=== PATIENT | female | born 1935 ===

== ENCOUNTER 2017-12-02 16:14 | Inpatient (IN) | payer MEDICARE, MEDICAID ==
[2017-12-02] MEDS ORDERED: Morphine 4 MG/ML VIAL ONE (16:33)
[2017-12-02 16:34] VITALS: BMI 678.0
[2017-12-02] MEDS ORDERED: Heparin25000 units/250ml 1/2NS 25,000 UNITS/250 ML BAG IV ONE ×2 (16:41→16:45)
[2017-12-02] MEDS ORDERED: Iodixanol 320 mg/ml 150 ml Bottle IV ONE (16:51)
--- NOTE | 2017-12-02 17:10 | C.PDOC ---
History Of Present Illness Patient is an 82 y/o female with a past medical history of hypertension, AAA, and hypothyroidism, who presents to the ER complaining of sudden lower left leg pain. States she was walking to bathroom and suddenly felt the leg pain. Patient had no trauma to the area. No chest pain or shortness of breath. She has some history of claudication and had vascular studies done in the past many years ago, which were normal. Denies fever, chest pain, sob, n/v, or trauma. Pt was seen immediately upon arrival. Time Seen by Provider: 12/02/17 16:31 Chief Complaint (Nursing): Lower Extremity Problem/Injury History Per: Patient History/Exam Limitations: no limitations Onset/Duration Of Symptoms: Mins Current Symptoms Are (Timing): Still Present Past Medical History Reviewed: Historical Data, Nursing Documentation, Vital Signs Vital Signs: Last Vital Signs Temp 99.6 F 12/05/17 20:00 Pulse 87 12/06/17 01:00 Resp 15 12/05/17 03:26 BP 129/51 L 12/05/17 03:26 Pulse Ox 97 12/05/17 20:00 - Medical History PMH: Anxiety, Gastritis, HTN, Hypothyroidism Family History: States: No Known Family Hx - Social History Hx Tobacco Use: No Hx Alcohol Use: No Hx Substance Use: No - Immunization History Hx Tetanus Toxoid Vaccination: No Hx Influenza Vaccination: No Hx Pneumococcal Vaccination: No Review Of Systems Cardiovascular: Negative for: Chest Pain Respiratory: Negative for: Shortness of Breath Musculoskeletal: Positive for: Leg Pain (left) Physical Exam - Physical Exam Appears: In Acute Distress (acute painful distress) Skin: Dry, Cyanotic (at left lower extremity, + cool to touch) Head: Atraumatic, Normacephalic Eye(s): bilateral: Normal Inspection, EOMI Nose: Normal Oral Mucosa: Moist Neck: Normal ROM, Supple Chest: Symmetrical Cardiovascular: Rhythm Regular Respiratory: Normal Breath Sounds, No Accessory Muscle Use Gastrointestinal/Abdominal: Normal Exam, Soft, No Tenderness Back: Normal Inspection, No CVA Tenderness, No Vertebral Tenderness Extremity: Tenderness, Other (Right lower extremity is warm, good pulses, sensation intact) Pulses: Left Dorsalis Pedis: Absent (No pulses), Right Dorsalis Pedis: Normal Neurological/Psych: Oriented x3, Normal Speech ED Course And Treatment - Laboratory Results Result Diagrams: 12/05/17 06:46 02/14/18 06:46 O2 Sat by Pulse Oximetry: 99 (RA) Pulse Ox Interpretation: Normal - CT Scan/US CTA Abd Other Rad Studies (CT/US): Read By Radiologist, Radiology Report Reviewed CT/US Interpretation: FINDINGS: Lower thorax: No acute findings. VASCULATURE: Aorta: There is an infrarenal abdominal aortic aneurysm measuring up to 6.7 cm diameter. No. evidence of acute dissection. Celiac trunk and mesenteric arteries: No acute findings. No occlusion or significant stenosis. Renal arteries: No acute findings. No occlusion or significant stenosis. Right iliac arteries: No acute findings. No occlusion or significant stenosis. Right femoral/popliteal arteries: Multifocal moderate to severe stenosis in the mid and distal right. SFA. No occlusion . Right calf/foot arteries: There is intermittent enhancement in the right anterior tibial artery. No. occlusion or significant stenosis. Left iliac arteries: No acute findings. No occlusion or significant stenosis. Left femoral/popliteal arteries: The left SFA is occluded in the proximal to mid thigh, with. reconstitution in the distal SFA, just above the knee joint. There is multifocal stenosis in the distal. SFA and left popliteal artery and poor enhancement on all of the left calf vessels. Left calf/foot arteries: As above. ABDOMEN: Liver: Unremarkable. No mass. Gallbladder and bile ducts: At least one small stone noted in the gallbladder. No ductal dilation. Pancreas: Unremarkable. No ductal dilation. No mass. Spleen: Unremarkable. No splenomegaly. Adrenals: Unremarkable. No mass. Kidneys and ureters: There is a simple cyst in the left kidney. No hydronephrosis. Stomach and bowel: There is diverticular disease of the colon, without evidence of acute. diverticulitis. No perforation, or abscess. No signs or history of bleeding provided. No obstruction. Appendix: No findings to suggest acute appendicitis. PELVIS: Bladder: Unremarkable. No mass. Reproductive: Unremarkable as visualized. ABDOMEN, PELVIS and LOWER EXTREMITIES : Intraperitoneal space: Unremarkable. No significant fluid collection. No free air. Bones/joints: There is grade 1 anterolisthesis at L5-S1 on the basis of advanced facet arthropathy. Bilateral moderate knee joint effusions and advanced DJD of both knee joints. No acute fracture. No dislocation. Soft tissues: Unremarkable. Lymph nodes: Unremarkable. No enlarged lymph nodes. Other findings: There are small bilateral Bennett's cysts. IMPRESSION: Infrarenal abdominal aortic aneurysm measuring 6.7 cm. Occlusion of the proximal left superficial femoral artery with reconstitution in the distal SFA above the. knee joint. Multifocal stenosis in the distal left SFA and popliteal artery with poor enhancement in the left calf. vessels. Multifocal stenosis in the mid and distal right SFA with poor enhancement or occlusion of the anterior. tibial artery. Progress Note: 4:15 Patient seen immediately upon arrival. Case discussed and pt evaluated by Dr Green. 4:20 Dr. Green discussed case with Dr. Buckner, vascular surgeon, who agreed with obtaining CTA and starting Heparin drip. 5: 50 Dr. Buckner evaluated patient in the ED, and will take her to the OR for arterial occlusion - Physician Consult Information Time Consulting Physician Contacted: 16:20 Physician Contacted: Juancarlos Buckner Jr. Critical Care Time - Critical Care Note Total Time (in mins): 45 Documented critical care: time excludes all time spent performing seperately billable procedures. Disposition - Disposition Disposition: HOSPITALIZED Disposition Time: 19:00 Condition: SERIOUS - Clinical Impression Clinical Impression: Arterial occlusion, lower extremity - PA / NUCLEAR CHEMISTRY TECHNICIAN / Resident Statement MD/DO has reviewed & agrees with the documentation as recorded. - Scribe Statement The provider has reviewed the documentation as recorded by the Scribe (Parul Oconnor) All medical record entries made by the Scribe were at my direction and personally dictated by me. I have reviewed the chart and agree that the record accurately reflects my personal performance of the history, physical exam, medical decision making, and the department course for this patient. I have also personally directed, reviewed, and agree with the discharge instructions and disposition.
[2017-12-02 17:34] LABS: BASO # 0.1 K/uL (0.0-0.2); BASO % 0.7 % (0.0-2.0); EOS # 0.5 K/uL (0.0-0.7); HEMOGLOBIN 10.1 g/dL (11.0-16.0); LYMPH # 1.5 K/uL (1.0-4.3); LYMPH % 19.8 % (20.0-40.0); MEAN CELL VOLUME 76.2 fL (81.0-99.0); MEAN CORPUSCULAR HEMOGLOBIN 24.8 pg (27.0-31.0); MEAN CORPUSCULAR HGB CONC 32.5 g/dL (33.0-37.0); MEAN PLATELET VOLUME 7.9 fL (7.2-11.7); MONO # 0.6 K/uL (0.0-0.8); MONO % 7.2 % (0.0-10.0); NEUT # 5.2 K/uL (1.8-7.0); NEUT % 66.3 % (50.0-75.0); RBC 4.07 Mil/uL (3.80-5.20); WHITE BLOOD COUNT 7.8 K/uL (4.8-10.8)
[2017-12-02 17:45] LABS: PROTHROMBIN TIME 11.4 SECONDS (9.7-12.2)
[2017-12-02 17:47] LABS: ALB/GLOB RATIO 1.1 (1.0-2.1); ALBUMIN 4.1 g/dL (3.5-5.0); CALCIUM 8.7 mg/dl (8.6-10.4)
[2017-12-02] MEDS ORDERED: Lactated Ringer's 1,000 ML ONE (18:10)
[2017-12-02] MEDS: Lactated Ringer's 1,000 ML IV SCH (18:12)
--- NOTE | 2017-12-02 18:12 | CP.PCM.CON ---
History of Present Illness - History of Present Illness History of Present Illness: Vascular Surgery consult note- Dr. Buckner CC: LLE pain 82F w/ relevant pmhx of HTN, hypothyroidism, AAA, PVD, presents to [facility] ER w/ sharp left lower leg pain that started suddenly earlier today. Patient was walking in bathroom when pain started. Denies trauma or fall onto the leg. Patient states never had this pain before. Denies: fevers, chills, chest pain, shortness of breath, nausea, vomiting, diarrhea, change in vision, loss of consciousness. PMH: AAA, HTN, hypothyroidism PSH: ALL: PCN SocialHx: PMD: Dr. Díaz Review of Systems - Review of Systems All systems: reviewed and no additional remarkable complaints except - Constitutional Constitutional: As Per HPI Past Patient History - Past Social History Smoking Status: Never Smoked - CARDIAC Hx Hypertension: Yes - ENDOCRINE/METABOLIC Hx Hypothyroidism: Yes - GASTROINTESTINAL Hx Gastritis: Yes - PSYCHIATRIC Hx Anxiety: Yes Hx Substance Use: No Meds Allergies/Adverse Reactions: Allergies Allergy/AdvReac Type Severity Reaction Status Date / Time Penicillins Allergy COUGH Verified 12/02/17 16:36 - Medications Medications: Current Medications Heparin Sodium/Sodium Chloride (Heparin 83650 Units/250ml 1/2 Normal Saline) 25 ,000 units in 250 mls @ 11.34 mls/hr IV .Q22H3M ONE; 18 UNITS/KG/HR PRN Reason: Protocol Stop: 12/03/17 14:47 Last Admin: 12/02/17 16:55 Dose: 11.34 mls/hr Lactated Ringer's (Lactated Ringer's) 1,000 mls @ 100 mls/hr IV .Q10H YARITZA Clindamycin Phosphate 300 mg/ (Sodium Chloride) 52 mls @ 104 mls/hr IVPB Q6H YARITZA Morphine Sulfate (Morphine) 2 mg IVP Q4 PRN PRN Reason: Pain, moderate (4-7) Physical Exam - Constitutional Appears: No Acute Distress, Agitated - Head Exam Head Exam: ATRAUMATIC - Eye Exam Eye Exam: EOMI. absent: Scleral icterus - ENT Exam ENT Exam: Mucous Membranes Moist - Respiratory Exam Respiratory Exam: NORMAL BREATHING PATTERN. absent: Accessory Muscle Use, Respiratory Distress - Cardiovascular Exam Cardiovascular Exam: Tachycardia, +S1, +S2. absent: Bradycardia - GI/Abdominal Exam GI & Abdominal Exam: Soft. absent: Hernia, Rebound, Rigid, Tenderness - Extremities Exam Additional comments: Palpable Femoral pulses non-palpable Left popliteal, DP and PT Left leg cool to touch - Neurological Exam Neurological exam: Alert, Oriented x3 - Skin Skin Exam: Intact, Warm Results - Vital Signs Recent Vital Signs: Last Vital Signs Temp 98 F 12/02/17 16:33 Pulse 121 H 12/02/17 16:33 Resp 25 H 12/02/17 16:33 BP 147/73 12/02/17 16:33 Pulse Ox 99 12/02/17 17:54 - Labs Result Diagrams: 12/02/17 17:29 12/02/17 17:29 Labs: Laboratory Results - last 24 hr 12/02/17 12/02/17 12/02/17 17:29 17:29 17:29 WBC 7.8 RBC 4.07 Hgb 10.1 L Hct 31.0 L MCV 76.2 L MCH 24.8 L MCHC 32.5 L RDW 16.0 H Plt Count 273 MPV 7.9 Neut % (Auto) 66.3 Lymph % (Auto) 19.8 L Citrus % (Auto) 7.2 Eos % (Auto) 6.0 H Baso % (Auto) 0.7 Neut # (Auto) 5.2 Lymph # (Auto) 1.5 Citrus # (Auto) 0.6 Eos # (Auto) 0.5 Baso # (Auto) 0.1 PT 11.4 INR 1.0 APTT 28 Sodium 134 Potassium 3.2 L Chloride 99 Carbon Dioxide 20 L Anion Gap 18 BUN 27 H Creatinine 1.1 Est GFR ( Amer) 57 Est GFR (Non-Af Amer) 47 Random Glucose 160 H Calcium 8.7 Total Bilirubin 0.7 AST 25 ALT 19 Alkaline Phosphatase 108 Total Protein 7.9 Albumin 4.1 Globulin 3.8 Albumin/Globulin Ratio 1.1 Assessment & Plan - Assessment and Plan (Free Text) Assessment: 82F acute thrombosis in Left profund femoral artery Plan: - NPO - ABx- Clinda preop - Plan for OR today for Embolectomy - pain control PRN - IVF - discussed w/ Dr. Dudley Nogueira PGY1
[2017-12-02] MEDS: Clindamycin 300 MG in Sodium Chloride 0.9% 50 ML IVPB SCH (18:44)
[2017-12-02] MEDS ORDERED: HEPARIN-NS 5,000 UNITS/500 ML 5,000 UNIT/500 ML BAG IV ONE (19:53)
[2017-12-02] MEDS ORDERED: Iodixanol 320 MG/ML 200 ML BOTTLE IV ONE (19:53)
[2017-12-02 19:56] LABS: SQUAMOUS EPITHIAL < 1 /hpf (0-5); URINE BILIRUBIN NEGATIVE (NEGATIVE); URINE BLOOD 1+ (NEGATIVE); URINE CLARITY Clear (Clear); URINE COLOR Straw (YELLOW); URINE GLUCOSE (UA) NORMAL (Normal); URINE LEUKOCYTE ESTERASE TRACE Leu/uL (Negative); URINE NITRATE NEGATIVE (NEGATIVE); URINE PROTEIN NEGATIVE (NEGATIVE); URINE UROBILINOGEN NORMAL mg/dL (0.2-1.0)
[2017-12-02] MEDS ORDERED: Midazolam 2 MG/2 ML VIAL ONE (19:56)
[2017-12-02] MEDS ORDERED: Propofol 10 mg/ml Inj (20 ML) ONE (19:56)
[2017-12-02] MEDS ORDERED: Rocuronium 10 mg/ml (10 ml) ONE (20:10)
[2017-12-02] MEDS ORDERED: HYDROmorphone 0.5 mg/0.5 ml ISec IVP PRN (20:26)
--- NOTE | 2017-12-02 23:21 | PCM.SURG1 ---
Surgeon's Initial Post Op Note - Surgeon's Notes Surgeon: Dr. Buckner [place]: PGY1 Type of Anesthesia: General Endo Pre-Operative Diagnosis: Thrombosis of Left Femoral Artery Operative Findings: mulitple clots within the SFA and the Profunda. for details see op note Post-Operative Diagnosis: as above Operation Performed: Left Femoral Embolectomy intraoperative arteriogram w/ patch clsoure, angiogram Specimen/Specimens Removed: left femoral clots Estimated Blood Loss: EBL {In ML}: 300 Drains Used: No Drains Date of Surgery/Procedure: 12/02/17 Time of Surgery/Procedure: 21:30
[2017-12-02] MEDS ORDERED: Lactated Ringer's 1,000 ML IV SCH (23:30)
[2017-12-02] MEDS: Heparin25000 units/250ml 1/2NS 25,000 UNITS/250 ML BAG IV PRN (23:50)
[2017-12-03] MEDS: Clindamycin 300 MG in Sodium Chloride 0.9% 50 ML IVPB SCH ×5 (00:30→23:40)
[2017-12-03 00:35] LABS: HEMOGLOBIN 9.3 g/dL (11.0-16.0); MEAN CORPUSCULAR HEMOGLOBIN 24.6 pg (27.0-31.0); MEAN CORPUSCULAR HGB CONC 32.3 g/dL (33.0-37.0); MEAN PLATELET VOLUME 7.8 fL (7.2-11.7); RBC 3.8 Mil/uL (3.80-5.20); RED CELL DISTRIBUTION WIDTH 15.9 % (11.5-14.5); WHITE BLOOD COUNT 11.2 K/uL (4.8-10.8)
[2017-12-03] MEDS: Lactated Ringer's 1,000 ML IV SCH ×5 (01:30→15:11)
[2017-12-03 07:00] LABS: ALB/GLOB RATIO 1.1 (1.0-2.1); ALBUMIN 3.7 g/dL (3.5-5.0); ALT/SGPT 26 U/L (9-52); AST/SGOT 26 U/L (14-36); BLOOD UREA NITROGEN 22 mg/dL (7-17); CALCIUM 8.7 mg/dl (8.6-10.4); GFR AFRICAN-AMERICAN > 60; GFR NON-AFRICAN AMERICAN 60; HDL CHOLESTEROL 61 mg/dL (30-70)
[2017-12-03 07:08] LABS: CK-MB 3.46 ng/mL (0.0-3.38)
[2017-12-03 07:10] LABS: LDL CHOLESTEROL 105 mg/dL (0-129)
[2017-12-03 07:18] LABS: BASO % 0.4 % (0.0-2.0); HEMOGLOBIN 9.4 g/dL (11.0-16.0); LYMPH # 0.6 K/uL (1.0-4.3); LYMPH % 6.9 % (20.0-40.0); MEAN CELL VOLUME 76.4 fL (81.0-99.0); MEAN CORPUSCULAR HEMOGLOBIN 24.8 pg (27.0-31.0); MEAN CORPUSCULAR HGB CONC 32.4 g/dL (33.0-37.0); MEAN PLATELET VOLUME 8.3 fL (7.2-11.7); MONO # 0.3 K/uL (0.0-0.8); MONO % 3.5 % (0.0-10.0); NEUT % 89.2 % (50.0-75.0); PLATELET COUNT 231 K/uL (130-400); RBC 3.78 Mil/uL (3.80-5.20); RED CELL DISTRIBUTION WIDTH 16.2 % (11.5-14.5)
--- NOTE | 2017-12-03 08:46 | RAD ---
Chest x-ray single frontal view History: Preoperative evaluation. Comparison: None available. Findings: No focal infiltrate or effusion. Tortuous aorta. Mild right hilar prominence. Heart size within normal limits. Upper lobe granulomatous changes. Degenerative changes in the spine and shoulders. Impression: No focal infiltrate or effusion. Tortuous aorta. Mild right hilar prominence. Heart size within normal limits. Upper lobe granulomatous changes.
[2017-12-03 08:51] LABS: MAGNESIUM 1.8 mg/dL (1.6-2.3)
[2017-12-03 08:57] LABS: BANDS 1 % (0-2); LYMPHOCYTE 6 % (20-40); MONOCYTE 3 % (0-10); NEUTROPHIL 90 % (50-75); PLATELET ESTIMATE NORMAL (NORMAL); TOTAL CELLS COUNTED 100
[2017-12-03 08:58] LABS: ANISOCYTOSIS SLIGHT; HYPOCHROMIC SLIGHT; OVALOCYTES SLIGHT; POIKILOCYTOSIS SLIGHT
--- NOTE | 2017-12-03 10:07 | OP ---
PROCEDURE DATE: 12/02/2017. PREOPERATIVE DIAGNOSIS: Acute embolus left leg. PROCEDURES CARRIED OUT: Left transfemoral embolectomy, patch angioplasty to the common femoral artery and intraoperative arteriogram. SURGEON: Dr. Buckner. FRONT OFFICE MANAGER: Dr. Nogueira. ANESTHESIOLOGIST: Dr. James. INDICATIONS: A 82-year-old woman, large abdominal aneurysm presents without a history of atrial fibrillation with acute ischemia of the left leg. Preoperative angiogram demonstrated a cut off in the profunda and occlusion of the SFA. OPERATIVE FINDINGS: 1. We were able to pass the catheter all the way down to the peroneal artery, 2 extensive clot from the superficial femoral artery and a large amount of clot was removed particularly from the profunda femoris. We then after we had removed the clot, we took an intraoperative arteriogram done at the superficial femoral artery which showed brisk flow down here and then, although there was areas stenosis and narrowing in the femoral artery, we did not pursue further interventions on this at this time. We then completed the angiogram showing that the popliteal artery was patent. We then placed a Vascu-Guard patch angioplasty on the common femoral artery and terminated the procedure after hemostasis was assured. Blood loss during the procedure was 300 mL. There were no operative complications. The operation carried out was left transfemoral embolectomy with retrieval of good deal of clot, patch angioplasty of the left common femoral artery and intraoperative arteriogram. Intervention regarding her aneurysm, will have to be deferred until a further date. Juancarlos Buckner Jr., MD cc: Dr. Campuzano and Dr. Marc Jimenez. MTDD
--- NOTE | 2017-12-03 10:53 | CT ---
PROCEDURE: CT Angiography Abdomen, Pelvis and Lower Extremity with Contrast HISTORY: arterial occlusion left leg COMPARISON: None. TECHNIQUE: Technique: CT angiography of the abdomen, pelvis and bilateral lower extremities performed in the arterial phase of enhancement. Coronal and sagittal reformats, and well as rotating MIP images of the vessels generated at the workstation. Intravenous contrast dose: 150 milliliters Visipaque 320 Radiation dose: Total exam DLP = 1761.03 MGy-cm. This CT exam was performed using one or more of the following dose reduction techniques: Automated exposure control, adjustment of the mA and/or kV according to patient size, and/or use of iterative reconstruction technique. FINDINGS: CT ANGIOGRAPHY: ABDOMINAL AORTA:: There is a fusiform infrarenal aortic aneurysm beginning approximately 1 centimeters below the right renal artery and continued to the bifurcation, measuring over 10 centimeters in length. The aneurysm measures 4 centimeters 1 centimeter below the right renal artery. Body of the aneurysm measures 6.6 centimeters in maximum dimension. The aneurysm measures 3.2 centimeters at the aortic bifurcation. There is significant soft thrombus throughout the aneurysm. MAJOR AORTIC BRANCHES: Celiac [place]: Unremarkable. Superior mesenteric artery: Unremarkable. Inferior mesenteric artery: Unremarkable. Renal arteries: Mildly stenotic right renal artery origin. Left renal artery unremarkable. PELVIC ARTERIES: Right Common Iliac: Ectatic and measure 1.7 centimeters in maximal dimension. Right External Iliac: Unremarkable. Right Internal Iliac: Unremarkable. Left Common Iliac: Very ectatic and measures 1.4 centimeters. Left External Iliac: Unremarkable. Left Internal Iliac: Unremarkable. RIGHT LOWER EXTREMITY ARTERIES: Right Common Femoral: Measures 8 millimeters and is otherwise unremarkable. Right Superficial Femoral: Moderate, 60 percent stenosis of the mid SFA. Aneurysmal dilatation of the distal SFA measures 9.7 millimeters. Right Profunda Femoris: Unremarkable. Popliteal artery measures 8.4 millimeters. Right Popliteal:Unremarkable. Right Anterior Tibial: Occluded Right Tibioperoneal Trunk: Unremarkable. Right Posterior Tibial: Unremarkable. Right Peroneal: Unremarkable. Right dorsalis pedis : Unremarkable. LEFT LOWER EXTREMITY ARTERIES: Left Common Femoral: Unremarkable. Left Superficial Femoral: No flow within the mid left SFA. Left Profunda Femoris: Unremarkable. Left Popliteal: Some flow noted within the popliteal artery. Left Anterior Tibial: No significant stenosis within the anterior tibial artery. There is calcification within the mid anterior tibial artery. Left Tibioperoneal Trunk: Unremarkable. Left Posterior Tibial: Flow seen within the posterior tibial artery. Left Peroneal: There is opacification of the peroneal artery which appears unremarkable. Left Dorsalis pedis: Unremarkable. NON-ANGIOGRAPHIC ASPECT OF THE EXAM: LOWER THORAX: Unremarkable. LIVER: Unremarkable. No gross lesion or ductal dilatation. GALLBLADDER AND BILE DUCTS: Unremarkable. PANCREAS: Unremarkable. No gross lesion or ductal dilatation. SPLEEN: Unremarkable. ADRENALS: Unremarkable. No mass. KIDNEYS AND URETERS: Unremarkable. No hydronephrosis. No solid mass. STOMACH AND BOWEL: Unremarkable. No obstruction. No gross mural thickening. APPENDIX: Normal appendix. PERITONEUM: Unremarkable. No free fluid. No free air. LYMPH NODES: Unremarkable. No enlarged lymph nodes. BLADDER: Unremarkable. REPRODUCTIVE: Unremarkable. BONES: No acute fracture. OTHER FINDINGS: None. IMPRESSION: CT ANGIOGRAM ABDOMEN/PELVIS: Infrarenal aortic aneurysm beginning approximately 1 centimeter below the right renal artery and extending to the bifurcation measuring 10 centimeters in total length and 6.6 centimeter maximum diameter. There is significant thrombus throughout the aneurysm. LEFT LOWER EXTREMITY CT ANGIOGRAM: 1. Occlusion of the mid left SFA. There is some flow within the popliteal artery. There is also some flow noted within the peroneal artery. No significant flow seen within the posterior tibial artery or anterior tibial artery. RIGHT LOWER EXTREMITY CT ANGIOGRAM 1. There 60 percent stenosis of the mid right SFA. 2. Short segment fusiform aneurysm of the distal SFA measuring 9.7 millimeter and of the popliteal artery measuring 8.4 millimeter. 3. Right runoff shows patent posterior tibial artery and peroneal artery. There is no flow within the anterior tibial artery.
--- NOTE | 2017-12-03 11:04 | CP.PCM.CON ---
History of Present Illness - History of Present Illness History of Present Illness: 82 year old female with a PMHx of AAA, PVD, HTN, hypothyroidism admitted to ICU status post Left Femoral Embolectomy by Dr Buckner. Patient initially presented to [facility] ER w/ sharp left lower leg pain that started suddenly. Patient was walking in bathroom when pain started. Denies trauma or fall onto the leg. Patient states never had this pain before. Upon angiography w/ abd ileofem runoff, patient found to have acute thrombosis of left profunda femoral artery PMH: AAA, HTN, hypothyroidism, GERD PSH: ALL: PCN, cabbage, carrots, potato, apple, seafood HOME MEDS: amlodipine 5mg PO QD, valsartan-hctz 320-12.5mg PO QD, omeprazole 20mg PO QD, aspirin 81mg PO QD, levothyroxine 25mg PO QD SocialHx: No history of smoking, alcohol or illicit drugs. Lives at home with . PMD: Dr. Díaz Review of Systems - Constitutional Constitutional: absent: Chills, Fever - EENT Eyes: absent: Change in Vision - Cardiovascular Cardiovascular: absent: Chest Pain - Respiratory Respiratory: absent: Dyspnea - Gastrointestinal Gastrointestinal: absent: Abdominal Pain, Diarrhea - Genitourinary Genitourinary: absent: Dysuria - Musculoskeletal Musculoskeletal: absent: Muscle Cramps, Muscle Weakness - Integumentary Integumentary: absent: Changing Lesions Past Patient History - Past Medical History & Family History Past Medical History?: Yes - Past Social History Smoking Status: Never Smoked - CARDIAC Hx Circulatory Problems: Yes Hx Hypertension: Yes Other/Comment: AAA - ENDOCRINE/METABOLIC Hx Hypothyroidism: Yes - MUSCULOSKELETAL/RHEUMATOLOGICAL Hx Falls: Yes - GASTROINTESTINAL Hx Gastritis: Yes - PSYCHIATRIC Hx Anxiety: Yes Hx Substance Use: No - ANESTHESIA Hx Anesthesia: Yes Hx Anesthesia Reactions: No Hx Malignant Hyperthermia: No Has any member of the family had a problem w/ anesthesia?: No Meds Allergies/Adverse Reactions: Allergies Allergy/AdvReac Type Severity Reaction Status Date / Time Penicillins Allergy COUGH Verified 12/02/17 16:36 cabbage Allergy Mild RASH Uncoded 12/03/17 08:49 carrots Allergy Mild RASH Uncoded 12/03/17 08:49 potato Allergy Mild RASH Uncoded 12/03/17 08:49 apple Allergy RASH Uncoded 12/03/17 08:49 seafood Allergy RASH Uncoded 12/03/17 08:49 - Medications Medications: Current Medications Aspirin (Aspirin Chewable) 81 mg PO DAILY [facility] Last Admin: 12/03/17 09:22 Dose: 81 mg Clopidogrel Bisulfate (Plavix) 75 mg PO DAILY [facility] Last Admin: 12/03/17 03:33 Dose: 75 mg Hydromorphone HCl (Dilaudid) 0.5 mg IVP Q4H PRN PRN Reason: Pain, moderate (4-7) Last Admin: 12/03/17 09:21 Dose: 0.5 mg Lactated Ringer's (Lactated Ringer's) 1,000 mls @ 100 mls/hr IV .Q10H [facility] Last Admin: 12/03/17 06:04 Dose: Not Given Clindamycin Phosphate 300 mg/ (Sodium Chloride) 52 mls @ 104 mls/hr IVPB Q6H [facility] Last Admin: 12/03/17 05:40 Dose: 104 mls/hr Heparin Sodium/Sodium Chloride (Heparin 16763 Units/250ml 1/2 Normal Saline) 25 ,000 units in 250 mls @ 11.34 mls/hr IV .Q22H3M PRN; Protocol; 18 UNITS/KG/HR PRN Reason: PROTOCOL Last Titration: 12/03/17 10:05 Dose: 15 units/kg/hr, 9.45 mls/hr Physical Exam - Constitutional Appears: Well, Non-toxic, No Acute Distress - Head Exam Head Exam: ATRAUMATIC - Eye Exam Eye Exam: EOMI - ENT Exam ENT Exam: Mucous Membranes Moist - Respiratory Exam Respiratory Exam: Clear to Auscultation Bilateral - Cardiovascular Exam Cardiovascular Exam: +S1, +S2. absent: Bradycardia, Tachycardia, REGULAR RHYTHM , Systolic Murmur - GI/Abdominal Exam GI & Abdominal Exam: Normal Bowel Sounds, Soft. absent: Tenderness - Extremities Exam Extremities exam: Negative for: calf tenderness, normal capillary refill, pedal edema, pedal pulses present Additional comments: Patient with 1+ PT/DT pulses bilaterally; Feet warm to touch b/l; no lesions noted; prominent veins in feet b/l consistent with venous congestion - Neurological Exam Neurological exam: Oriented x3 - Skin Skin Exam: Intact, Normal Color, Warm Additional comments: prominent veins in feet b/l consistent with venous congestion Results - Vital Signs Recent Vital Signs: Last Vital Signs Temp 98.6 F 12/03/17 08:00 Pulse 65 12/03/17 10:18 Resp 17 12/03/17 10:18 BP 136/55 L 12/03/17 10:18 Pulse Ox 99 12/03/17 10:18 - Labs Result Diagrams: 12/03/17 07:14 12/03/17 06:37 Labs: Laboratory Results - last 24 hr 12/02/17 12/02/17 12/02/17 17:29 17:29 17:29 WBC 7.8 RBC 4.07 Hgb 10.1 L Hct 31.0 L MCV 76.2 L MCH 24.8 L MCHC 32.5 L RDW 16.0 H Plt Count 273 MPV 7.9 Neut % (Auto) 66.3 Lymph % (Auto) 19.8 L [place] % (Auto) 7.2 Eos % (Auto) 6.0 H Baso % (Auto) 0.7 Neut # (Auto) 5.2 Lymph # (Auto) 1.5 [place] # (Auto) 0.6 Eos # (Auto) 0.5 Baso # (Auto) 0.1 Neutrophils % (Manual) Band Neutrophils % Lymphocytes % (Manual) Monocytes % (Manual) Platelet Estimate Hypochromasia (manual) Poikilocytosis (manual Anisocytosis (manual) Ovalocytes PT 11.4 INR 1.0 APTT 28 Sodium 134 Potassium 3.2 L Chloride 99 Carbon Dioxide 20 L Anion Gap 18 BUN 27 H Creatinine 1.1 Est GFR ( Amer) 57 Est GFR (Non-Af Amer) 47 Random Glucose 160 H Lactic Acid Calcium 8.7 Phosphorus Magnesium Total Bilirubin 0.7 AST 25 ALT 19 Alkaline Phosphatase 108 CK-MB (Mass) Total Protein 7.9 Albumin 4.1 Globulin 3.8 Albumin/Globulin Ratio 1.1 Triglycerides Cholesterol LDL Cholesterol Direct HDL Cholesterol Urine Color Urine Clarity Urine pH Ur Specific [place] Urine Protein Urine Glucose (UA) Urine Ketones Urine Blood Urine Nitrate Urine Bilirubin Urine Urobilinogen Ur Leukocyte Esterase Urine WBC (Auto) Urine RBC (Auto) Ur Squamous Epith Cells Blood Type Blood Type Confirm Antibody Screen 12/02/17 12/02/17 12/03/17 18:54 19:30 00:26 WBC 11.2 H RBC 3.80 Hgb 9.3 L Hct 28.9 L MCV 76.0 L MCH 24.6 L MCHC 32.3 L RDW 15.9 H Plt Count 237 MPV 7.8 Neut % (Auto) Lymph % (Auto) [place] % (Auto) Eos % (Auto) Baso % (Auto) Neut # (Auto) Lymph # (Auto) [place] # (Auto) Eos # (Auto) Baso # (Auto) Neutrophils % (Manual) Band Neutrophils % Lymphocytes % (Manual) Monocytes % (Manual) Platelet Estimate Hypochromasia (manual) Poikilocytosis (manual Anisocytosis (manual) Ovalocytes PT INR APTT Sodium Potassium Chloride Carbon Dioxide Anion Gap BUN Creatinine Est GFR ( Amer) Est GFR (Non-Af Amer) Random Glucose Lactic Acid Calcium Phosphorus Magnesium Total Bilirubin AST ALT Alkaline Phosphatase CK-MB (Mass) Total Protein Albumin Globulin Albumin/Globulin Ratio Triglycerides Cholesterol LDL Cholesterol Direct HDL Cholesterol Urine Color Straw Urine Clarity Clear Urine pH 5.0 Ur Specific [place] 1.035 H Urine Protein Negative Urine Glucose (UA) Normal Urine Ketones Negative Urine Blood 1+ H Urine Nitrate Negative Urine Bilirubin Negative Urine Urobilinogen Normal Ur Leukocyte Esterase Trace Urine WBC (Auto) 1 Urine RBC (Auto) 3 Ur Squamous Epith Cells < 1 Blood Type B POSITIVE Blood Type Confirm B POSITIVE Antibody Screen Negative 12/03/17 12/03/17 12/03/17 00:26 00:26 06:37 WBC RBC Hgb Hct MCV MCH MCHC RDW Plt Count MPV Neut % (Auto) Lymph % (Auto) [place] % (Auto) Eos % (Auto) Baso % (Auto) Neut # (Auto) Lymph # (Auto) [place] # (Auto) Eos # (Auto) Baso # (Auto) Neutrophils % (Manual) Band Neutrophils % Lymphocytes % (Manual) Monocytes % (Manual) Platelet Estimate Hypochromasia (manual) Poikilocytosis (manual Anisocytosis (manual) Ovalocytes PT INR APTT Sodium 131 L Potassium 4.5 Chloride 98 Carbon Dioxide 23 Anion Gap 15 BUN 22 H Creatinine 0.9 Est GFR ( Amer) > 60 Est GFR (Non-Af Amer) 60 Random Glucose 149 H Lactic Acid 1.0 Calcium 8.7 Phosphorus 3.9 Magnesium 1.8 Total Bilirubin 0.6 AST 26 ALT 26 Alkaline Phosphatase 94 CK-MB (Mass) 2.77 3.46 H Total Protein 7.2 Albumin 3.7 Globulin 3.5 Albumin/Globulin Ratio 1.1 Triglycerides 51 Cholesterol 182 LDL Cholesterol Direct 105 HDL Cholesterol 61 Urine Color Urine Clarity Urine pH Ur Specific [place] Urine Protein Urine Glucose (UA) Urine Ketones Urine Blood Urine Nitrate Urine Bilirubin Urine Urobilinogen Ur Leukocyte Esterase Urine WBC (Auto) Urine RBC (Auto) Ur Squamous Epith Cells Blood Type Blood Type Confirm Antibody Screen 12/03/17 12/03/17 12/03/17 07:14 08:19 10:27 WBC 9.0 RBC 3.78 L Hgb 9.4 L Hct 28.9 L MCV 76.4 L MCH 24.8 L MCHC 32.4 L RDW 16.2 H Plt Count 231 MPV 8.3 Neut % (Auto) 89.2 H Lymph % (Auto) 6.9 L [place] % (Auto) 3.5 Eos % (Auto) 0.0 Baso % (Auto) 0.4 Neut # (Auto) 8.0 H Lymph # (Auto) 0.6 L [place] # (Auto) 0.3 Eos # (Auto) 0.0 Baso # (Auto) 0.0 Neutrophils % (Manual) 90 H Band Neutrophils % 1 Lymphocytes % (Manual) 6 L Monocytes % (Manual) 3 Platelet Estimate Normal Hypochromasia (manual) Slight Poikilocytosis (manual Slight Anisocytosis (manual) Slight Ovalocytes Slight PT INR APTT 206 H* D 82 H D Sodium Potassium Chloride Carbon Dioxide Anion Gap BUN Creatinine Est GFR ( Amer) Est GFR (Non-Af Amer) Random Glucose Lactic Acid Calcium Phosphorus Magnesium Total Bilirubin AST ALT Alkaline Phosphatase CK-MB (Mass) Total Protein Albumin Globulin Albumin/Globulin Ratio Triglycerides Cholesterol LDL Cholesterol Direct HDL Cholesterol Urine Color Urine Clarity Urine pH Ur Specific [place] Urine Protein Urine Glucose (UA) Urine Ketones Urine Blood Urine Nitrate Urine Bilirubin Urine Urobilinogen Ur Leukocyte Esterase Urine WBC (Auto) Urine RBC (Auto) Ur Squamous Epith Cells Blood Type Blood Type Confirm Antibody Screen Assessment & Plan - Assessment and Plan (Free Text) Assessment: 82 year old F with PMHx of PVD, AAA, HTN, Hypothyroidism found to have acute thrombosis of left profunda femoral artery status-post Left Femoral Embolectomy. CV: hx of PVD, AAA, HTN status-post Left Femoral Embolectomy CT angio abd/pelvis shows infrarenal aortic aneurysm measuring 10 centimeters in total length and 6.6 centimeter maximum diameter continue heparin drip, aspirin 81mg PO QD, plavix 75mg PO QD Vascular surgery, Dr Buckner on board Pain control BP well controlled Lipid profile NORMAL Heme: anemia trend hemoglobin
--- NOTE | 2017-12-03 13:41 | RAD ---
PROCEDURE: Intraoperative Fluoroscopy. HISTORY: THROMBOSIS OF left FEMORAL ARTERY FINDINGS: Fluoroscopic assistance was provided for left angiography and embolectomy.. Please refer to the operative report from BERONICA Leo.
--- NOTE | 2017-12-03 13:46 | CP.PCM.PN ---
Subjective - Date & Time of Evaluation Date of Evaluation: 12/03/17 Time of Evaluation: 07:30 - Subjective Subjective: Vascular surgery progress note for Dr. Ralph Whitney, PGY-1 Pt S & E at bedside this AM. Pt reports no pain of left lower extremty. No complaints at this time. No acute events overnight per nursing. Objective - Vital Signs/Intake and Output Vital Signs (last 24 hours): Temp Pulse Resp BP Pulse Ox 98.6 F 65 17 136/55 L 99 12/03/17 08:00 12/03/17 10:18 12/03/17 10:18 12/03/17 10:18 12/03/17 10:18 Intake and Output: 12/03/17 12/03/17 06:59 18:59 Intake Total 2828.1 750.8 Output Total 720 300 Balance 2108.1 450.8 - Medications Medications: Current Medications Aspirin (Aspirin Chewable) 81 mg PO DAILY [facility] Last Admin: 12/03/17 09:22 Dose: 81 mg Clopidogrel Bisulfate (Plavix) 75 mg PO DAILY [facility] Last Admin: 12/03/17 11:00 Dose: Not Given Hydromorphone HCl (Dilaudid) 0.5 mg IVP Q4H PRN PRN Reason: Pain, moderate (4-7) Last Admin: 12/03/17 09:21 Dose: 0.5 mg Lactated Ringer's (Lactated Ringer's) 1,000 mls @ 100 mls/hr IV .Q10H [facility] Last Admin: 12/03/17 12:38 Dose: 100 mls/hr Clindamycin Phosphate 300 mg/ (Sodium Chloride) 52 mls @ 104 mls/hr IVPB Q6H [facility] Last Admin: 12/03/17 11:23 Dose: 104 mls/hr Heparin Sodium/Sodium Chloride (Heparin 99502 Units/250ml 1/2 Normal Saline) 25 ,000 units in 250 mls @ 11.34 mls/hr IV .Q22H3M PRN; Protocol; 18 UNITS/KG/HR PRN Reason: PROTOCOL Last Titration: 12/03/17 10:05 Dose: 15 units/kg/hr, 9.45 mls/hr - Labs Labs: 12/03/17 07:14 12/03/17 06:37 PT 11.4 SECONDS (9.7-12.2) 12/02/17 17:29 INR 1.0 12/02/17 17:29 APTT 82 SECONDS (21-34) H D 12/03/17 10:27 - Constitutional Appears: Non-toxic, No Acute Distress - Head Exam Head Exam: ATRAUMATIC, NORMAL INSPECTION, NORMOCEPHALIC - Eye Exam Eye Exam: EOMI, Normal appearance - ENT Exam ENT Exam: Mucous Membranes Moist, Normal Exam - Neck Exam Neck Exam: Full ROM, Normal Inspection - Respiratory Exam Respiratory Exam: NORMAL BREATHING PATTERN - Cardiovascular Exam Cardiovascular Exam: REGULAR RHYTHM, +S1, +S2 - GI/Abdominal Exam GI & Abdominal Exam: Soft. absent: Distended, Firm, Guarding, Tenderness Additional comments: Left groin with pressure dressing in place- no strike through, no palpable masses - Extremities Exam Extremities Exam: Normal Inspection. absent: Tenderness Additional comments: both extremities warm, DP and TP discernible with Doppler - Neurological Exam Neurological Exam: Alert, Awake - Psychiatric Exam Psychiatric exam: Normal Affect, Normal Mood - Skin Skin Exam: Dry, Intact, Normal Color, Warm Assessment and Plan - Assessment and Plan (Free Text) Assessment: 82F POD#1 s/p Left femoral embolectomy w/intraoperative ateriogram w/patch closure, angiogram Plan: Monitor pulses Pain control PRN Cont Heparin drip Further mgmt as per primary & ICU teams YASMINE attending [place], PGY-1
[2017-12-03] MEDS ORDERED: Aluminum Hydroxide/Magnesium Hydroxide Susp (30 mL) PO ONE (16:41)
--- NOTE | 2017-12-03 18:28 | CP.PCM.HP ---
History of Present Illness - History of Present Illness History of Present Illness: 82-year-old female with a history of aortic aneurysm PVD hypertension hypothyroidism. Patient admitted with severe left leg pain of sudden onset. Upon arrival to the emergency room patient had a significant ischemic leg. Emergency vascular surgery consulted. Patient underwent angiogram, and angioplasty of the left leg. Patient is having palpable pulses noted. Company of pain Past medical history: Hypertension, hypothyroidism, reflux disease, aortic aneurysm. Surgical history Allergic to penicillin Home medications noted. On examination: Vital signs stable. Review of system noted from the chart. Comparing of some pain in the left leg. Back pain noted. Vital signs reviewed No neck vein distention noted Chest good air entry bilaterally, no wheezing or rales noted CVS regular heart sound, no murmur noted Abdomen soft, nontender. Extremities no pedal edema VOCATIONAL NURSE alert awake oriented -3, no functional neurological deficit Labs reviewed Nonspecific on a heparin drip Assessment and recommendation: 82-year-old female with a history of aortic aneurysm, peripheral vascular disease, hypertension, hypothyroidism admitted with acute ischemic leg. Status post angiogram. Patient is currently on heparin. We'll continue the heparin drip. Aspirin Plavix. Patient also has abdominal aortic aneurysm large. Currently pending planning for surgical intervention. Will follow the patient Present on Admission - Present on Admission Any Indicators Present on Admission: No History of DVT/PE: No History of Uncontrolled Diabetes: No Urinary Catheter: No Decubitus Ulcer Present: No Past Patient History - Past Medical History & Family History Past Medical History?: Yes - Past Social History Smoking Status: Never Smoked - CARDIAC Hx Circulatory Problems: Yes Hx Hypertension: Yes Other/Comment: AAA - ENDOCRINE/METABOLIC Hx Hypothyroidism: Yes - MUSCULOSKELETAL/RHEUMATOLOGICAL Hx Falls: Yes - GASTROINTESTINAL Hx Gastritis: Yes - PSYCHIATRIC Hx Anxiety: Yes Hx Substance Use: No - ANESTHESIA Hx Anesthesia: Yes Hx Anesthesia Reactions: No Hx Malignant Hyperthermia: No Has any member of the family had a problem w/ anesthesia?: No Meds Allergies/Adverse Reactions: Allergies Allergy/AdvReac Type Severity Reaction Status Date / Time Penicillins Allergy COUGH Verified 12/02/17 16:36 cabbage Allergy Mild RASH Uncoded 12/03/17 08:49 carrots Allergy Mild RASH Uncoded 12/03/17 08:49 potato Allergy Mild RASH Uncoded 12/03/17 08:49 apple Allergy RASH Uncoded 12/03/17 08:49 seafood Allergy RASH Uncoded 12/03/17 08:49 Results - Vital Signs Recent Vital Signs: Last Vital Signs Temp 99.1 F 12/03/17 12:00 Pulse 64 12/03/17 15:19 Resp 13 12/03/17 15:19 BP 129/55 L 12/03/17 15:19 Pulse Ox 99 12/03/17 15:19 - Labs Result Diagrams: 12/03/17 07:14 12/03/17 06:37 Labs: Laboratory Results - last 24 hr 12/02/17 12/02/17 12/03/17 18:54 19:30 00:26 WBC 11.2 H RBC 3.80 Hgb 9.3 L Hct 28.9 L MCV 76.0 L MCH 24.6 L MCHC 32.3 L RDW 15.9 H Plt Count 237 MPV 7.8 Neut % (Auto) Lymph % (Auto) [place] % (Auto) Eos % (Auto) Baso % (Auto) Neut # (Auto) Lymph # (Auto) [place] # (Auto) Eos # (Auto) Baso # (Auto) Neutrophils % (Manual) Band Neutrophils % Lymphocytes % (Manual) Monocytes % (Manual) Platelet Estimate Hypochromasia (manual) Poikilocytosis (manual Anisocytosis (manual) Ovalocytes APTT Sodium Potassium Chloride Carbon Dioxide Anion Gap BUN Creatinine Est GFR ( Amer) Est GFR (Non-Af Amer) Random Glucose Lactic Acid Calcium Phosphorus Magnesium Total Bilirubin AST ALT Alkaline Phosphatase CK-MB (Mass) Total Protein Albumin Globulin Albumin/Globulin Ratio Triglycerides Cholesterol LDL Cholesterol Direct HDL Cholesterol Urine Color Straw Urine Clarity Clear Urine pH 5.0 Ur Specific [place] 1.035 H Urine Protein Negative Urine Glucose (UA) Normal Urine Ketones Negative Urine Blood 1+ H Urine Nitrate Negative Urine Bilirubin Negative Urine Urobilinogen Normal Ur Leukocyte Esterase Trace Urine WBC (Auto) 1 Urine RBC (Auto) 3 Ur Squamous Epith Cells < 1 Blood Type B POSITIVE Blood Type Confirm B POSITIVE Antibody Screen Negative 12/03/17 12/03/17 12/03/17 00:26 00:26 06:37 WBC RBC Hgb Hct MCV MCH MCHC RDW Plt Count MPV Neut % (Auto) Lymph % (Auto) [place] % (Auto) Eos % (Auto) Baso % (Auto) Neut # (Auto) Lymph # (Auto) [place] # (Auto) Eos # (Auto) Baso # (Auto) Neutrophils % (Manual) Band Neutrophils % Lymphocytes % (Manual) Monocytes % (Manual) Platelet Estimate Hypochromasia (manual) Poikilocytosis (manual Anisocytosis (manual) Ovalocytes APTT Sodium 131 L Potassium 4.5 Chloride 98 Carbon Dioxide 23 Anion Gap 15 BUN 22 H Creatinine 0.9 Est GFR ( Amer) > 60 Est GFR (Non-Af Amer) 60 Random Glucose 149 H Lactic Acid 1.0 Calcium 8.7 Phosphorus 3.9 Magnesium 1.8 Total Bilirubin 0.6 AST 26 ALT 26 Alkaline Phosphatase 94 CK-MB (Mass) 2.77 3.46 H Total Protein 7.2 Albumin 3.7 Globulin 3.5 Albumin/Globulin Ratio 1.1 Triglycerides 51 Cholesterol 182 LDL Cholesterol Direct 105 HDL Cholesterol 61 Urine Color Urine Clarity Urine pH Ur Specific [place] Urine Protein Urine Glucose (UA) Urine Ketones Urine Blood Urine Nitrate Urine Bilirubin Urine Urobilinogen Ur Leukocyte Esterase Urine WBC (Auto) Urine RBC (Auto) Ur Squamous Epith Cells Blood Type Blood Type Confirm Antibody Screen 12/03/17 12/03/17 12/03/17 07:14 08:19 10:27 WBC 9.0 RBC 3.78 L Hgb 9.4 L Hct 28.9 L MCV 76.4 L MCH 24.8 L MCHC 32.4 L RDW 16.2 H Plt Count 231 MPV 8.3 Neut % (Auto) 89.2 H Lymph % (Auto) 6.9 L [place] % (Auto) 3.5 Eos % (Auto) 0.0 Baso % (Auto) 0.4 Neut # (Auto) 8.0 H Lymph # (Auto) 0.6 L [place] # (Auto) 0.3 Eos # (Auto) 0.0 Baso # (Auto) 0.0 Neutrophils % (Manual) 90 H Band Neutrophils % 1 Lymphocytes % (Manual) 6 L Monocytes % (Manual) 3 Platelet Estimate Normal Hypochromasia (manual) Slight Poikilocytosis (manual Slight Anisocytosis (manual) Slight Ovalocytes Slight APTT 206 H* D 82 H D Sodium Potassium Chloride Carbon Dioxide Anion Gap BUN Creatinine Est GFR ( Amer) Est GFR (Non-Af Amer) Random Glucose Lactic Acid Calcium Phosphorus Magnesium Total Bilirubin AST ALT Alkaline Phosphatase CK-MB (Mass) Total Protein Albumin Globulin Albumin/Globulin Ratio Triglycerides Cholesterol LDL Cholesterol Direct HDL Cholesterol Urine Color Urine Clarity Urine pH Ur Specific [place] Urine Protein Urine Glucose (UA) Urine Ketones Urine Blood Urine Nitrate Urine Bilirubin Urine Urobilinogen Ur Leukocyte Esterase Urine WBC (Auto) Urine RBC (Auto) Ur Squamous Epith Cells Blood Type Blood Type Confirm Antibody Screen 12/03/17 16:23 WBC RBC Hgb Hct MCV MCH MCHC RDW Plt Count MPV Neut % (Auto) Lymph % (Auto) [place] % (Auto) Eos % (Auto) Baso % (Auto) Neut # (Auto) Lymph # (Auto) [place] # (Auto) Eos # (Auto) Baso # (Auto) Neutrophils % (Manual) Band Neutrophils % Lymphocytes % (Manual) Monocytes % (Manual) Platelet Estimate Hypochromasia (manual) Poikilocytosis (manual Anisocytosis (manual) Ovalocytes APTT 70 H D Sodium Potassium Chloride Carbon Dioxide Anion Gap BUN Creatinine Est GFR ( Amer) Est GFR (Non-Af Amer) Random Glucose Lactic Acid Calcium Phosphorus Magnesium Total Bilirubin AST ALT Alkaline Phosphatase CK-MB (Mass) Total Protein Albumin Globulin Albumin/Globulin Ratio Triglycerides Cholesterol LDL Cholesterol Direct HDL Cholesterol Urine Color Urine Clarity Urine pH Ur Specific [place] Urine Protein Urine Glucose (UA) Urine Ketones Urine Blood Urine Nitrate Urine Bilirubin Urine Urobilinogen Ur Leukocyte Esterase Urine WBC (Auto) Urine RBC (Auto) Ur Squamous Epith Cells Blood Type Blood Type Confirm Antibody Screen
[2017-12-03] MEDS: Heparin25000 units/250ml 1/2NS 25,000 UNITS/250 ML BAG IV PRN (22:00)
[2017-12-04] MEDS: Lactated Ringer's 1,000 ML IV SCH ×3 (00:30→10:58)
[2017-12-04] MEDS: Clindamycin 300 MG in Sodium Chloride 0.9% 50 ML IVPB SCH ×3 (06:00→17:22)
[2017-12-04 06:45] LABS: BASO # 0.1 K/uL (0.0-0.2); BASO % 0.7 % (0.0-2.0); EOS # 0.5 K/uL (0.0-0.7); EOS % 5.8 % (0.0-4.0); HEMOGLOBIN 8.6 g/dL (11.0-16.0); LYMPH # 1.8 K/uL (1.0-4.3); LYMPH % 20.6 % (20.0-40.0); MEAN CELL VOLUME 76.4 fL (81.0-99.0); MEAN CORPUSCULAR HEMOGLOBIN 25.5 pg (27.0-31.0); MEAN CORPUSCULAR HGB CONC 33.4 g/dL (33.0-37.0); MEAN PLATELET VOLUME 8.2 fL (7.2-11.7); MONO # 0.8 K/uL (0.0-0.8); MONO % 8.7 % (0.0-10.0); NEUT # 5.7 K/uL (1.8-7.0); NEUT % 64.2 % (50.0-75.0); RBC 3.38 Mil/uL (3.80-5.20); RED CELL DISTRIBUTION WIDTH 16.2 % (11.5-14.5); WHITE BLOOD COUNT 8.8 K/uL (4.8-10.8)
[2017-12-04 06:52] LABS: ALBUMIN 3.2 g/dL (3.5-5.0); CALCIUM 8.6 mg/dl (8.6-10.4)
--- NOTE | 2017-12-04 07:53 | CP.PCM.PN ---
Subjective - Date & Time of Evaluation Date of Evaluation: 12/04/17 Time of Evaluation: 07:10 - Subjective Subjective: Vascular Surgery- Dr. Buckner Patient seen and examined at bedside this AM. No acute events overnight. Pt on Heparin GGT. LLE warm, doplerable biphasic PT pulses. able to self void. Objective - Vital Signs/Intake and Output Vital Signs (last 24 hours): Temp Pulse Resp BP Pulse Ox 99.1 F 64 13 129/55 L 99 12/03/17 12:00 12/03/17 15:19 12/03/17 15:19 12/03/17 15:19 12/03/17 15:19 Intake and Output: 12/04/17 12/04/17 06:59 18:59 Intake Total 1462.8 109.4 Output Total 400 0 Balance 1062.8 109.4 - Medications Medications: Current Medications Aspirin (Aspirin Chewable) 81 mg PO DAILY [facility] Last Admin: 12/03/17 09:22 Dose: 81 mg Clopidogrel Bisulfate (Plavix) 75 mg PO DAILY [facility] Last Admin: 12/03/17 11:00 Dose: Not Given Hydromorphone HCl (Dilaudid) 0.5 mg IVP Q4H PRN PRN Reason: Pain, moderate (4-7) Last Admin: 12/03/17 23:10 Dose: 0.5 mg Lactated Ringer's (Lactated Ringer's) 1,000 mls @ 100 mls/hr IV .Q10H [facility] Last Admin: 12/04/17 00:30 Dose: 100 mls/hr Clindamycin Phosphate 300 mg/ (Sodium Chloride) 52 mls @ 104 mls/hr IVPB Q6H [facility] Last Admin: 12/04/17 06:00 Dose: 104 mls/hr Heparin Sodium/Sodium Chloride (Heparin 03474 Units/250ml 1/2 Normal Saline) 25 ,000 units in 250 mls @ 11.34 mls/hr IV .Q22H3M PRN; Protocol; 18 UNITS/KG/HR PRN Reason: PROTOCOL Last Admin: 12/03/17 22:00 Dose: 15 units/kg/hr, 9.45 mls/hr Pantoprazole Sodium (Protonix Inj) 40 mg IVP DAILY [facility] Last Admin: 12/03/17 16:12 Dose: 40 mg - Labs Labs: 12/04/17 06:28 12/04/17 06:28 PT 11.4 SECONDS (9.7-12.2) 12/02/17 17:29 INR 1.0 12/02/17 17:29 APTT 64 SECONDS (21-34) H D 12/04/17 06:28 - Constitutional Appears: Non-toxic, No Acute Distress - Head Exam Head Exam: ATRAUMATIC - Eye Exam Eye Exam: EOMI. absent: Scleral icterus - ENT Exam ENT Exam: Mucous Membranes Moist - Respiratory Exam Respiratory Exam: NORMAL BREATHING PATTERN. absent: Accessory Muscle Use, Respiratory Distress - Cardiovascular Exam Cardiovascular Exam: +S1, +S2. absent: Bradycardia, Tachycardia - Extremities Exam Additional comments: dopplerable L PT pulse biphasic palpable L popliteal pulses b/l LE warm - Neurological Exam Neurological Exam: Alert, Awake, Oriented x3 - Skin Skin Exam: Intact, Warm Assessment and Plan - Assessment and Plan (Free Text) Assessment: 82F s/p Left femoral embolectomy w/ intraoperative ateriogram w/patch closure, angiogram POD#2 Plan: - continue heparin GGT - plan for AAA repair - physical therapy consult all recs appreciated - Monitor pulses - Pain control PRN - medical management as per primary & ICU teams - further recs per Dr. Buckner surgical attending Estiven Nogueira PGY1
[2017-12-04] MEDS: HYDROmorphone 0.5 mg/0.5 ml ISec IVP PRN ×3 (10:58→23:02)
--- NOTE | 2017-12-04 11:44 | CP.CCUPN ---
<MarcusShaden - Last Filed: 12/04/17 17:15> CCU Subjective - Physician Review Events Since Last Encounter (Free Text): 12/04/17 11:45 No acute events occurred overnight. Subjective (Free Text): 12/04/17 11:45 Patient seen and examined at bedside. Critical Care Time Spent (in minutes): 40 CCU Objective - Vital Signs / Intake & Output Intake and Output (Last 8hrs): Intake & Output 12/03/17 12/04/17 12/04/17 22:59 06:59 14:59 Intake Total 1175.2 825.2 747.0 Output Total 400 400 400 Balance 775.2 425.2 347.0 Weight 142 lb Intake: IV 150 Intake, IV Amount 875.2 825.2 547.0 Left Forearm 800 750 500 Left Hand 75.2 75.2 47.0 Oral 150 200 Output: Urine 400 400 400 Urine, Voided 400 400 400 - Physical Exam Head: Positive for: Atraumatic, Normocephalic Pupils: Positive for: PERRL Extroacular Muscles: Positive for: EOMI Conjunctiva: Positive for: Normal Mouth: Positive for: Moist Mucous Membranes Neck: Positive for: Normal Range of Motion Respiratory/Chest: Positive for: Clear to Auscultation, Good Air Exchange. Negative for: Accessory Muscle Use, Wheezes Cardiovascular: Positive for: Regular Rate and Rhythm, Normal S1, S2, Other ( systolic murmur) Abdomen: Positive for: Normal Bowel Sounds Upper Extremity: Positive for: Normal Inspection. Negative for: Cyanosis, Edema Lower Extremity: Positive for: Normal Inspection, Other (dopplerable L PT pulse biphasic) Skin: Positive for: Warm, Dry, Normal Color Other physical findings (Free Text): Patient with 1+ PT/DT pulses bilaterally; Feet warm to touch b/l; no lesions noted; prominent veins in feet b/l consistent with venous congestion - Medications Active Medications: Active Medications Generic Name Dose Route Start Last Admin Trade Name Freq PRN Reason Stop Dose Admin Aspirin 81 mg 12/03/17 10:00 12/04/17 09:56 Aspirin Chewable PO 81 mg DAILY YARITZA Administration Clopidogrel Bisulfate 75 mg 12/03/17 02:15 12/04/17 09:56 Plavix PO 75 mg DAILY YARITZA Administration Hydromorphone HCl 0.5 mg 12/04/17 09:45 12/04/17 10:58 Dilaudid IVP 0.5 mg Q4H PRN Administration Pain, moderate (4-7) Lactated Ringer's 1,000 mls @ 100 mls/hr 12/02/17 18:15 12/04/17 10:58 Lactated Ringer's IV 100 mls/hr .Q10H YARITZA Administration Clindamycin Phosphate 300 mg/ 52 mls @ 104 mls/hr 12/02/17 18:15 12/04/17 11: 29 Sodium Chloride IVPB 104 mls/hr Q6H YARITZA Administration Heparin Sodium/Sodium Chloride 25,000 units in 250 mls @ 11.34 mls/hr 23:12 12/03/17 22:00 Heparin 33747 Units/250ml 1/2 Normal Saline IV 15 units/kg/hr .Q22H3M PRN 9.45 mls/hr PROTOCOL Administration Protocol 18 UNITS/KG/HR Pantoprazole Sodium 40 mg 12/03/17 15:45 12/04/17 09:42 Protonix Inj IVP 40 mg DAILY YARITZA Administration - Patient Studies Lab Studies: Microbiology Studies 12/02/17 23:20 MRSA Culture (Admit) - Final Naris MRSA NOT DETECTED Lab Studies 12/04/17 12/04/17 12/04/17 Range/Units 06:28 06:28 06:28 WBC 8.8 (4.8-10.8) K/uL RBC 3.38 L (3.80-5.20) Mil/uL Hgb 8.6 L (11.0-16.0) g/dL Hct 25.8 L (34.0-47.0) % MCV 76.4 L (81.0-99.0) fL MCH 25.5 L (27.0-31.0) pg MCHC 33.4 (33.0-37.0) g/dL RDW 16.2 H (11.5-14.5) % Plt Count 212 (130-400) K/uL MPV 8.2 (7.2-11.7) fL Neut % (Auto) 64.2 (50.0-75.0) % Lymph % (Auto) 20.6 (20.0-40.0) % Ness % (Auto) 8.7 (0.0-10.0) % Eos % (Auto) 5.8 H (0.0-4.0) % Baso % (Auto) 0.7 (0.0-2.0) % Neut # (Auto) 5.7 (1.8-7.0) K/uL Lymph # (Auto) 1.8 (1.0-4.3) K/uL Ness # (Auto) 0.8 (0.0-0.8) K/uL Eos # (Auto) 0.5 (0.0-0.7) K/uL Baso # (Auto) 0.1 (0.0-0.2) K/uL APTT 64 H D (21-34) SECONDS Sodium 133 (132-148) mmol/L Potassium 3.9 (3.6-5.2) mmol/L Chloride 100 (98-107) mmol/L Carbon Dioxide 25 (22-30) mmol/L Anion Gap 12 (10-20) BUN 21 H (7-17) mg/dL Creatinine 1.1 (0.7-1.2) mg/dL Est GFR ( Amer) 57 Est GFR (Non-Af Amer) 47 Random Glucose 100 (65-105) mg/dL Calcium 8.6 (8.6-10.4) mg/dl Total Bilirubin 0.4 (0.2-1.3) mg/dL AST 23 (14-36) U/L ALT 25 (9-52) U/L Alkaline Phosphatase 83 (38-126) U/L Total Protein 6.2 L (6.3-8.3) g/dL Albumin 3.2 L (3.5-5.0) g/dL Globulin 3.1 (2.2-3.9) gm/dL Albumin/Globulin Ratio 1.0 (1.0-2.1) 12/03/17 Range/Units 16:23 WBC (4.8-10.8) K/uL RBC (3.80-5.20) Mil/uL Hgb (11.0-16.0) g/dL Hct (34.0-47.0) % MCV (81.0-99.0) fL MCH (27.0-31.0) pg MCHC (33.0-37.0) g/dL RDW (11.5-14.5) % Plt Count (130-400) K/uL MPV (7.2-11.7) fL Neut % (Auto) (50.0-75.0) % Lymph % (Auto) (20.0-40.0) % Ness % (Auto) (0.0-10.0) % Eos % (Auto) (0.0-4.0) % Baso % (Auto) (0.0-2.0) % Neut # (Auto) (1.8-7.0) K/uL Lymph # (Auto) (1.0-4.3) K/uL Ness # (Auto) (0.0-0.8) K/uL Eos # (Auto) (0.0-0.7) K/uL Baso # (Auto) (0.0-0.2) K/uL APTT 70 H D (21-34) SECONDS Sodium (132-148) mmol/L Potassium (3.6-5.2) mmol/L Chloride (98-107) mmol/L Carbon Dioxide (22-30) mmol/L Anion Gap (10-20) BUN (7-17) mg/dL Creatinine (0.7-1.2) mg/dL Est GFR ( Amer) Est GFR (Non-Af Amer) Random Glucose (65-105) mg/dL Calcium (8.6-10.4) mg/dl Total Bilirubin (0.2-1.3) mg/dL AST (14-36) U/L ALT (9-52) U/L Alkaline Phosphatase (38-126) U/L Total Protein (6.3-8.3) g/dL Albumin (3.5-5.0) g/dL Globulin (2.2-3.9) gm/dL Albumin/Globulin Ratio (1.0-2.1) Laboratory Results - last 24 hr 12/03/17 12/04/17 12/04/17 16:23 06:28 06:28 WBC 8.8 RBC 3.38 L Hgb 8.6 L Hct 25.8 L MCV 76.4 L MCH 25.5 L MCHC 33.4 RDW 16.2 H Plt Count 212 MPV 8.2 Neut % (Auto) 64.2 Lymph % (Auto) 20.6 Ness % (Auto) 8.7 Eos % (Auto) 5.8 H Baso % (Auto) 0.7 Neut # (Auto) 5.7 Lymph # (Auto) 1.8 Ness # (Auto) 0.8 Eos # (Auto) 0.5 Baso # (Auto) 0.1 APTT 70 H D Sodium 133 Potassium 3.9 Chloride 100 Carbon Dioxide 25 Anion Gap 12 BUN 21 H Creatinine 1.1 Est GFR ( Amer) 57 Est GFR (Non-Af Amer) 47 Random Glucose 100 Calcium 8.6 Total Bilirubin 0.4 AST 23 ALT 25 Alkaline Phosphatase 83 Total Protein 6.2 L Albumin 3.2 L Globulin 3.1 Albumin/Globulin Ratio 1.0 12/04/17 06:28 WBC RBC Hgb Hct MCV MCH MCHC RDW Plt Count MPV Neut % (Auto) Lymph % (Auto) Ness % (Auto) Eos % (Auto) Baso % (Auto) Neut # (Auto) Lymph # (Auto) Ness # (Auto) Eos # (Auto) Baso # (Auto) APTT 64 H D Sodium Potassium Chloride Carbon Dioxide Anion Gap BUN Creatinine Est GFR ( Amer) Est GFR (Non-Af Amer) Random Glucose Calcium Total Bilirubin AST ALT Alkaline Phosphatase Total Protein Albumin Globulin Albumin/Globulin Ratio Critical Care Progress Note - Nutrition Nutrition: Nutrition Category Date Time Status Heart Healthy Diet [DIET] Diets 12/03/17 Breakfast Active Assessment/Plan - Assessment and Plan (Free Text) Assessment: Patient is an 82 year-old female who presented on 12/02 to the ED with LLE pain on walking. 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 She received a left transfemoral embolectomy with retrieval of clot and patch angioplast of the left common femoral artery. Her past medical history includes HTN, hypothyroidism, anxiety, and gastritis, and is currently being managed medically for the AAA with close monitoring. Plan: Cards: HTN, AAA, thrombus, s/p angioplasty and embolectomy - f/u with Dr. Buckner for recs re: AAA mgmt - Plavix 75mg PO qd - ASA 81mg PO qd -Will f/u with Dr. Dudley for Triple AAA managment. PPx: DVT, PUD - Heparin 5000u SC; 35091e in 0.5%NSS - Protonix 40 IVP qd - LR 1L @100ml/hr IV q10h - Clindamycin 300mg IVPB q6h @ 104ml/hr - Dilaudid 0.5mg IVP q4h PRN <Royce Pardo - Last Filed: 12/04/17 18:12> CCU Objective - Vital Signs / Intake & Output Intake and Output (Last 8hrs): Intake & Output 12/04/17 12/04/17 12/04/17 06:59 14:59 22:59 Intake Total 825.2 1075.2 328.2 Output Total 400 700 300 Balance 425.2 375.2 28.2 Weight 142 lb Intake: Intake, IV Amount 825.2 875.2 328.2 Left Forearm 750 800 300 Left Hand 75.2 75.2 28.2 Oral 200 Output: Urine 400 700 300 Urine, Voided 400 700 300 - Medications Active Medications: Active Medications Generic Name Dose Route Start Last Admin Trade Name Freq PRN Reason Stop Dose Admin Aspirin 81 mg 12/03/17 10:00 12/04/17 09:56 Aspirin Chewable PO 81 mg DAILY YARITZA Administration Clopidogrel Bisulfate 75 mg 12/03/17 02:15 12/04/17 09:56 Plavix PO 75 mg DAILY YARITZA Administration Hydromorphone HCl 0.5 mg 12/04/17 09:45 12/04/17 16:50 Dilaudid IVP 0.5 mg Q4H PRN Administration Pain, moderate (4-7) Lactated Ringer's 1,000 mls @ 100 mls/hr 12/02/17 18:15 12/04/17 10:58 Lactated Ringer's IV 100 mls/hr .Q10H YARITZA Administration Clindamycin Phosphate 300 mg/ 52 mls @ 104 mls/hr 12/02/17 18:15 12/04/17 17: 22 Sodium Chloride IVPB 104 mls/hr Q6H YARITZA Administration Heparin Sodium/Sodium Chloride 25,000 units in 250 mls @ 11.34 mls/hr 23:12 12/03/17 22:00 Heparin 81793 Units/250ml 1/2 Normal Saline IV 15 units/kg/hr .Q22H3M PRN 9.45 mls/hr PROTOCOL Administration Protocol 18 UNITS/KG/HR Pantoprazole Sodium 40 mg 12/03/17 15:45 12/04/17 09:42 Protonix Inj IVP 40 mg DAILY YARITZA Administration Vitamin A 1 ea 12/04/17 15:12 12/04/17 15:38 Vitamin A & D Oint Ud Foilpak TOP 1 ea DAILY YARITZA Administration - Patient Studies Lab Studies: Microbiology Studies 12/02/17 23:20 MRSA Culture (Admit) - Final Naris MRSA NOT DETECTED Lab Studies 12/04/17 12/04/17 12/04/17 Range/Units 06:28 06:28 06:28 WBC 8.8 (4.8-10.8) K/uL RBC 3.38 L (3.80-5.20) Mil/uL Hgb 8.6 L (11.0-16.0) g/dL Hct 25.8 L (34.0-47.0) % MCV 76.4 L (81.0-99.0) fL MCH 25.5 L (27.0-31.0) pg MCHC 33.4 (33.0-37.0) g/dL RDW 16.2 H (11.5-14.5) % Plt Count 212 (130-400) K/uL MPV 8.2 (7.2-11.7) fL Neut % (Auto) 64.2 (50.0-75.0) % Lymph % (Auto) 20.6 (20.0-40.0) % Ness % (Auto) 8.7 (0.0-10.0) % Eos % (Auto) 5.8 H (0.0-4.0) % Baso % (Auto) 0.7 (0.0-2.0) % Neut # (Auto) 5.7 (1.8-7.0) K/uL Lymph # (Auto) 1.8 (1.0-4.3) K/uL Ness # (Auto) 0.8 (0.0-0.8) K/uL Eos # (Auto) 0.5 (0.0-0.7) K/uL Baso # (Auto) 0.1 (0.0-0.2) K/uL APTT 64 H D (21-34) SECONDS Sodium 133 (132-148) mmol/L Potassium 3.9 (3.6-5.2) mmol/L Chloride 100 (98-107) mmol/L Carbon Dioxide 25 (22-30) mmol/L Anion Gap 12 (10-20) BUN 21 H (7-17) mg/dL Creatinine 1.1 (0.7-1.2) mg/dL Est GFR ( Amer) 57 Est GFR (Non-Af Amer) 47 Random Glucose 100 (65-105) mg/dL Calcium 8.6 (8.6-10.4) mg/dl Total Bilirubin 0.4 (0.2-1.3) mg/dL AST 23 (14-36) U/L ALT 25 (9-52) U/L Alkaline Phosphatase 83 (38-126) U/L Total Protein 6.2 L (6.3-8.3) g/dL Albumin 3.2 L (3.5-5.0) g/dL Globulin 3.1 (2.2-3.9) gm/dL Albumin/Globulin Ratio 1.0 (1.0-2.1) Laboratory Results - last 24 hr 12/04/17 12/04/17 12/04/17 06:28 06:28 06:28 WBC 8.8 RBC 3.38 L Hgb 8.6 L Hct 25.8 L MCV 76.4 L MCH 25.5 L MCHC 33.4 RDW 16.2 H Plt Count 212 MPV 8.2 Neut % (Auto) 64.2 Lymph % (Auto) 20.6 Ness % (Auto) 8.7 Eos % (Auto) 5.8 H Baso % (Auto) 0.7 Neut # (Auto) 5.7 Lymph # (Auto) 1.8 Ness # (Auto) 0.8 Eos # (Auto) 0.5 Baso # (Auto) 0.1 APTT 64 H D Sodium 133 Potassium 3.9 Chloride 100 Carbon Dioxide 25 Anion Gap 12 BUN 21 H Creatinine 1.1 Est GFR ( Amer) 57 Est GFR (Non-Af Amer) 47 Random Glucose 100 Calcium 8.6 Total Bilirubin 0.4 AST 23 ALT 25 Alkaline Phosphatase 83 Total Protein 6.2 L Albumin 3.2 L Globulin 3.1 Albumin/Globulin Ratio 1.0 Critical Care Progress Note - Nutrition Nutrition: Nutrition Category Date Time Status Heart Healthy Diet [DIET] Diets 12/03/17 Breakfast Active Attending/Attestation - Attestation I have personally seen and examined this patient.: Yes I have fully participated in the care of the patient.: Yes I have reviewed all pertinent clinical information: Yes Notes (Text): 12/04/17 18:11 patient seen and examined in the intensive care unit. Case discussed with house staff in the morning Patient is an 82 year-old female who presented on 12/02 to the ED with LLE pain on walking. 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 She received a left transfemoral embolectomy with retrieval of clot and patch angioplast of the left common femoral artery. Continue anticoagulation Follow-up with Dr. Terrazas AAA repair
[2017-12-04] MEDS ORDERED: Magnesium Hydroxide Susp 30 ml UD PO ONE (13:54)
[2017-12-04] MEDS ORDERED: HYDROmorphone 0.5 mg/0.5 ml ISec IM ONE (14:00)
[2017-12-04] MEDS: Vitamins A & D Oint UD Foilpak TOP SCH (15:38)
--- NOTE | 2017-12-04 21:11 | CP.PCM.PN ---
Subjective - Date & Time of Evaluation Date of Evaluation: 12/04/17 Time of Evaluation: 21:11 - Subjective Subjective: Patient complaining of some pain in the left thigh, and also in the left leg. Patient was out of bed to chair this morning. She was able to eat better, but the less appetite. Denies any nausea. No abdominal pain. On examination: HEENT PERRLA, neck supple No thyromegaly was noted and no cervical adenopathy noted Chest bilateral good air entry, no wheezing or rales noted CVS regular heart sound, no murmur Abdomen soft and no organomegaly Edema and 1 plus noted. Labs reviewed. Ecchymosis in the left upper extremity noted. Dopplerable pulse in the left leg. Assessment and recommendation: 82 female with history of hypertension, high cholesterol, admitted with atherosclerosis, and aortic aneurysm of the abdomen. Left leg acute ischemia, status post a vascular intervention. On happening day. Currently doing okay. Continue the blood pressure control. Patient definitely will need a some intervention for the AAA, will be following up with the vascular surgery. Will follow the patient Objective - Vital Signs/Intake and Output Vital Signs (last 24 hours): Temp Pulse Resp BP Pulse Ox 98.5 F 73 17 131/44 L 98 12/04/17 20:00 12/04/17 20:26 12/04/17 20:26 12/04/17 20:26 12/04/17 20:26 Intake and Output: 12/04/17 12/05/17 18:59 06:59 Intake Total 2062.8 118.8 Output Total 1000 Balance 1062.8 118.8 - Medications Medications: Current Medications Aspirin (Aspirin Chewable) 81 mg PO DAILY [facility] Last Admin: 12/04/17 09:56 Dose: 81 mg Clopidogrel Bisulfate (Plavix) 75 mg PO DAILY [facility] Last Admin: 12/04/17 09:56 Dose: 75 mg Hydromorphone HCl (Dilaudid) 0.5 mg IVP Q4H PRN PRN Reason: Pain, moderate (4-7) Last Admin: 12/04/17 16:50 Dose: 0.5 mg Clindamycin Phosphate 300 mg/ (Sodium Chloride) 52 mls @ 104 mls/hr IVPB Q6H [facility] Last Admin: 12/04/17 17:22 Dose: 104 mls/hr Heparin Sodium/Sodium Chloride (Heparin 61902 Units/250ml 1/2 Normal Saline) 25 ,000 units in 250 mls @ 11.34 mls/hr IV .Q22H3M PRN; Protocol; 18 UNITS/KG/HR PRN Reason: PROTOCOL Last Admin: 12/03/17 22:00 Dose: 15 units/kg/hr, 9.45 mls/hr Pantoprazole Sodium (Protonix Inj) 40 mg IVP DAILY YARITZA Last Admin: 12/04/17 09:42 Dose: 40 mg Vitamin A (Vitamin A & D Oint Ud Foilpak) 1 ea TOP DAILY YARITZA Last Admin: 12/04/17 15:38 Dose: 1 ea - Labs Labs: 12/04/17 06:28 12/04/17 06:28 PT 11.4 SECONDS (9.7-12.2) 12/02/17 17:29 INR 1.0 12/02/17 17:29 APTT 64 SECONDS (21-34) H D 12/04/17 06:28
[2017-12-05] MEDS: Heparin25000 units/250ml 1/2NS 25,000 UNITS/250 ML BAG IV PRN (04:22)
[2017-12-05] MEDS: Levothyroxine 25 MCG TAB PO SCH (06:06)
[2017-12-05] MEDS: HYDROmorphone 0.5 mg/0.5 ml ISec IVP PRN (06:06)
[2017-12-05 06:52] LABS: BASO % 0.2 % (0.0-2.0); EOS # 0.5 K/uL (0.0-0.7); EOS % 6.2 % (0.0-4.0); HEMOGLOBIN 9.2 g/dL (11.0-16.0); LYMPH # 1.3 K/uL (1.0-4.3); LYMPH % 15.3 % (20.0-40.0); MEAN CELL VOLUME 76.3 fL (81.0-99.0); MEAN CORPUSCULAR HEMOGLOBIN 25.3 pg (27.0-31.0); MEAN CORPUSCULAR HGB CONC 33.2 g/dL (33.0-37.0); MEAN PLATELET VOLUME 8.1 fL (7.2-11.7); MONO # 0.6 K/uL (0.0-0.8); NEUT # 6.2 K/uL (1.8-7.0); NEUT % 71.3 % (50.0-75.0); NRBC % 0.2 % (0.0-2.0); RBC 3.64 Mil/uL (3.80-5.20); RED CELL DISTRIBUTION WIDTH 16.1 % (11.5-14.5); WHITE BLOOD COUNT 8.6 K/uL (4.8-10.8)
[2017-12-05 07:09] LABS: ALB/GLOB RATIO 1.1 (1.0-2.1); ALBUMIN 3.3 g/dL (3.5-5.0); ALT/SGPT 29 U/L (9-52); AST/SGOT 23 U/L (14-36); BLOOD UREA NITROGEN 14 mg/dL (7-17); CALCIUM 8.6 mg/dl (8.6-10.4); GFR AFRICAN-AMERICAN > 60; GFR NON-AFRICAN AMERICAN 60; MAGNESIUM 2.1 mg/dL (1.6-2.3)
[2017-12-05] MEDS: Vitamins A & D Oint UD Foilpak TOP SCH (10:30)
[2017-12-05] MEDS: Saccharomyces Boulardi 250 mg Cap PO SCH ×3 (10:30→19:00)
--- NOTE | 2017-12-05 11:16 | CP.CCUPN ---
<MarcusShaden - Last Filed: 12/05/17 15:51> CCU Subjective - Physician Review Events Since Last Encounter (Free Text): 12/05/17 11:17 Had moderate amount loose, brown BM mixed with urine. Subjective (Free Text): 12/04/17 11:45 Patient seen and examined at bedside this A.M. No complaints at this time. 12/05/17 11:17 Critical Care Time Spent (in minutes): 45 CCU Objective - Vital Signs / Intake & Output Intake and Output (Last 8hrs): Intake & Output 12/04/17 12/05/17 12/05/17 22:59 06:59 14:59 Intake Total 1125.2 1025.2 9.4 Output Total 400 400 Balance 725.2 625.2 9.4 Intake: IV 250 Intake, IV Amount 475.2 75.2 9.4 Left Forearm 400 Left Hand 75.2 75.2 9.4 Oral 650 700 0 Output: Urine 400 400 Urine, Voided 400 400 Other: # Voids Urine, Voided 0 1 0 # Bowel Movements 0 1 0 - Physical Exam Head: Positive for: Atraumatic, Normocephalic Pupils: Positive for: PERRL Extroacular Muscles: Positive for: EOMI Conjunctiva: Positive for: Normal Mouth: Positive for: Moist Mucous Membranes Neck: Positive for: Normal Range of Motion Respiratory/Chest: Positive for: Clear to Auscultation, Good Air Exchange. Negative for: Accessory Muscle Use, Wheezes Cardiovascular: Positive for: Regular Rate and Rhythm, Normal S1, S2, Other ( systolic murmur) Abdomen: Positive for: Normal Bowel Sounds Upper Extremity: Positive for: Normal Inspection. Negative for: Cyanosis, Edema Lower Extremity: Positive for: Normal Inspection, Other (dopplerable L PT pulse biphasic) Skin: Positive for: Warm, Dry, Normal Color - Medications Active Medications: Active Medications Generic Name Dose Route Start Last Admin Trade Name Freq PRN Reason Stop Dose Admin Amlodipine Besylate 5 mg 12/05/17 10:00 Norvasc PO DAILY YARITZA Aspirin 81 mg 12/03/17 10:00 12/04/17 09:56 Aspirin Chewable PO 81 mg DAILY YARITZA Administration Clopidogrel Bisulfate 75 mg 12/03/17 02:15 12/04/17 09:56 Plavix PO 75 mg DAILY YARITZA Administration Hydromorphone HCl 0.5 mg 12/04/17 09:45 12/05/17 06:06 Dilaudid IVP 0.5 mg Q4H PRN Administration Pain, moderate (4-7) Heparin Sodium/Sodium Chloride 25,000 units in 250 mls @ 11.34 mls/hr 23:12 12/05/17 04:22 Heparin 85903 Units/250ml 1/2 Normal Saline IV 15 units/kg/hr .Q22H3M PRN 9.45 mls/hr PROTOCOL Administration Protocol 18 UNITS/KG/HR Levothyroxine Sodium 25 mcg 12/05/17 06:30 12/05/17 06:06 Synthroid PO 25 mcg DAILY@0630 YARITZA Administration Lorazepam 0.5 mg 12/04/17 21:11 Ativan PO Q12H PRN Anxiety Pantoprazole Sodium 40 mg 12/03/17 15:45 12/04/17 09:42 Protonix Inj IVP 40 mg DAILY YARITZA Administration Saccharomyces Boulardii 250 mg 12/05/17 10:00 Florastor PO TID YARITZA Vitamin A 1 ea 12/04/17 15:12 12/04/17 15:38 Vitamin A & D Oint Ud Foilpak TOP 1 ea DAILY YARITZA Administration - Patient Studies Lab Studies: Microbiology Studies 12/02/17 23:20 MRSA Culture (Admit) - Final Naris MRSA NOT DETECTED Lab Studies 12/05/17 12/05/17 12/05/17 Range/Units 06:46 06:46 06:46 WBC 8.6 (4.8-10.8) K/uL RBC 3.64 L (3.80-5.20) Mil/uL Hgb 9.2 L (11.0-16.0) g/dL Hct 27.8 L (34.0-47.0) % MCV 76.3 L (81.0-99.0) fL MCH 25.3 L (27.0-31.0) pg MCHC 33.2 (33.0-37.0) g/dL RDW 16.1 H (11.5-14.5) % Plt Count 229 (130-400) K/uL MPV 8.1 (7.2-11.7) fL Neut % (Auto) 71.3 (50.0-75.0) % Lymph % (Auto) 15.3 L (20.0-40.0) % [place] % (Auto) 7.0 (0.0-10.0) % Eos % (Auto) 6.2 H (0.0-4.0) % Baso % (Auto) 0.2 (0.0-2.0) % Neut # (Auto) 6.2 (1.8-7.0) K/uL Lymph # (Auto) 1.3 (1.0-4.3) K/uL [place] # (Auto) 0.6 (0.0-0.8) K/uL Eos # (Auto) 0.5 (0.0-0.7) K/uL Baso # (Auto) 0.0 (0.0-0.2) K/uL APTT 45 H D (21-34) SECONDS Sodium 136 (132-148) mmol/L Potassium 3.5 L (3.6-5.2) mmol/L Chloride 101 (98-107) mmol/L Carbon Dioxide 28 (22-30) mmol/L Anion Gap 10 (10-20) BUN 14 (7-17) mg/dL Creatinine 0.9 (0.7-1.2) mg/dL Est GFR ( Amer) > 60 Est GFR (Non-Af Amer) 60 Random Glucose 101 (65-105) mg/dL Calcium 8.6 (8.6-10.4) mg/dl Phosphorus 3.2 (2.5-4.5) mg/dL Magnesium 2.1 (1.6-2.3) mg/dL Total Bilirubin 0.6 (0.2-1.3) mg/dL AST 23 (14-36) U/L ALT 29 (9-52) U/L Alkaline Phosphatase 90 (38-126) U/L Total Protein 6.4 (6.3-8.3) g/dL Albumin 3.3 L (3.5-5.0) g/dL Globulin 3.1 (2.2-3.9) gm/dL Albumin/Globulin Ratio 1.1 (1.0-2.1) Laboratory Results - last 24 hr 12/05/17 12/05/17 12/05/17 06:46 06:46 06:46 WBC 8.6 RBC 3.64 L Hgb 9.2 L Hct 27.8 L MCV 76.3 L MCH 25.3 L MCHC 33.2 RDW 16.1 H Plt Count 229 MPV 8.1 Neut % (Auto) 71.3 Lymph % (Auto) 15.3 L [place] % (Auto) 7.0 Eos % (Auto) 6.2 H Baso % (Auto) 0.2 Neut # (Auto) 6.2 Lymph # (Auto) 1.3 [place] # (Auto) 0.6 Eos # (Auto) 0.5 Baso # (Auto) 0.0 APTT 45 H D Sodium 136 Potassium 3.5 L Chloride 101 Carbon Dioxide 28 Anion Gap 10 BUN 14 Creatinine 0.9 Est GFR ( Amer) > 60 Est GFR (Non-Af Amer) 60 Random Glucose 101 Calcium 8.6 Phosphorus 3.2 Magnesium 2.1 Total Bilirubin 0.6 AST 23 ALT 29 Alkaline Phosphatase 90 Total Protein 6.4 Albumin 3.3 L Globulin 3.1 Albumin/Globulin Ratio 1.1 Review of Systems - EENT Eyes: absent: Change in Vision, Discharge, Loss of Peripheral Vision, Sees Flashes, Loss of Vision Ears: absent: Ear Discharge, Ear Pain, Dizziness Nose/Mouth/Throat: absent: Nasal Congestion, Nose Pain, Bleeding Gums, Halitosis - Cardiovascular Cardiovascular: absent: Chest Pain, Irregular Heart Rhythm, Leg Edema, Palpitations, Slow Heart Rate, Syncope - Respiratory Respiratory: absent: Dyspnea, Hemoptysis, Change in Mucous Color - Gastrointestinal Gastrointestinal: absent: Belching, Dyspepsia, Fecal Incontinence, Loose Stools , Vomiting - Musculoskeletal Musculoskeletal: absent: Arthralgias, Atrophy, Myalgias, Stiffness, Tingling - Integumentary Integumentary: absent: Bleeding Lesions, Change in Pigmentation, Lesions, Unusual Bruising - Neurological Neurological: absent: Syncope, Tingling, Vertigo, Weakness - Endocrine Endocrine: absent: Polydipsia, Polyphagia, Polyuria - Hematologic/Lymphatic Hematologic: absent: Easy Bleeding, Easy Bruising Critical Care Progress Note - Nutrition Nutrition: Nutrition Category Date Time Status Heart Healthy Diet [DIET] Diets 12/03/17 Breakfast Active Assessment/Plan - Assessment and Plan (Free Text) Assessment: Patient is an 82 year-old female who presented on 12/02 to the ED with LLE pain on walking. 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 She received a left transfemoral embolectomy with retrieval of clot and patch angioplast of the left common femoral artery. Her past medical history includes HTN, hypothyroidism, anxiety, and gastritis, and is currently being managed medically for the AAA with close monitoring. Plan: Cards: HTN, AAA, thrombus, s/p angioplasty and embolectomy - f/u with Dr. Buckner for recs re: AAA mgmt - Plavix 75mg PO qd - ASA 81mg PO qd -AAA expected to be treated this hospital stay per [employer]. PPx: DVT, PUD - Heparin 5000u SC; 88956x in 0.5%NSS - Protonix 40 IVP qd - LR 1L @100ml/hr IV q10h - Clindamycin 300mg IVPB q6h @ 104ml/hr - Dilaudid 0.5mg IVP q4h PRN Disposition: Patient to be transferred to Telemetry. <Royce Pardo S - Last Filed: 12/05/17 17:59> CCU Subjective - Physician Review Critical Care Time Spent (in minutes): 30 CCU Objective - Vital Signs / Intake & Output Intake and Output (Last 8hrs): Intake & Output 12/05/17 12/05/17 12/05/17 06:59 14:59 22:59 Intake Total 1025.2 775.2 18.8 Output Total 400 Balance 625.2 775.2 18.8 Intake: IV 250 Intake, IV Amount 75.2 75.2 18.8 Left Hand 75.2 75.2 18.8 Oral 700 700 Output: Urine 400 Urine, Voided 400 Other: # Voids Urine, Voided 1 300 # Bowel Movements 1 0 - Medications Active Medications: Active Medications Generic Name Dose Route Start Last Admin Trade Name Freq PRN Reason Stop Dose Admin Amlodipine Besylate 5 mg 12/05/17 10:00 12/05/17 10:30 Norvasc PO 5 mg DAILY YARITZA Administration Aspirin 81 mg 12/03/17 10:00 12/05/17 10:30 Aspirin Chewable PO 81 mg DAILY YARITZA Administration Clopidogrel Bisulfate 75 mg 12/03/17 02:15 12/05/17 10:30 Plavix PO 75 mg DAILY YARITZA Administration Docusate Sodium 100 mg 12/06/17 10:00 Colace PO DAILY YARITZA Heparin Sodium/Sodium Chloride 25,000 units in 250 mls @ 11.34 mls/hr 23:12 12/05/17 04:22 Heparin 09192 Units/250ml 1/2 Normal Saline IV 15 units/kg/hr .Q22H3M PRN 9.45 mls/hr PROTOCOL Administration Protocol 18 UNITS/KG/HR Levothyroxine Sodium 25 mcg 12/05/17 06:30 12/05/17 06:06 Synthroid PO 25 mcg DAILY@0630 YARITZA Administration Lorazepam 0.5 mg 12/04/17 21:11 Ativan PO Q12H PRN Anxiety Oxycodone/Acetaminophen 1 tab 12/05/17 16:24 Percocet 5/325 Mg Tab PO 12/08/17 16:25 Q4H PRN Pain, moderate (4-7) Pantoprazole Sodium 40 mg 12/06/17 10:00 Protonix Ec Tab PO DAILY YARITZA Saccharomyces Boulardii 250 mg 12/05/17 10:00 12/05/17 15:00 Florastor PO 250 mg TID YARITZA Administration Vitamin A 1 ea 12/04/17 15:12 12/05/17 10:30 Vitamin A & D Oint Ud Foilpak TOP 1 ea DAILY YARITZA Administration - Patient Studies Lab Studies: Lab Studies 12/05/17 12/05/17 12/05/17 Range/Units 06:46 06:46 06:46 WBC 8.6 (4.8-10.8) K/uL RBC 3.64 L (3.80-5.20) Mil/uL Hgb 9.2 L (11.0-16.0) g/dL Hct 27.8 L (34.0-47.0) % MCV 76.3 L (81.0-99.0) fL MCH 25.3 L (27.0-31.0) pg MCHC 33.2 (33.0-37.0) g/dL RDW 16.1 H (11.5-14.5) % Plt Count 229 (130-400) K/uL MPV 8.1 (7.2-11.7) fL Neut % (Auto) 71.3 (50.0-75.0) % Lymph % (Auto) 15.3 L (20.0-40.0) % [place] % (Auto) 7.0 (0.0-10.0) % Eos % (Auto) 6.2 H (0.0-4.0) % Baso % (Auto) 0.2 (0.0-2.0) % Neut # (Auto) 6.2 (1.8-7.0) K/uL Lymph # (Auto) 1.3 (1.0-4.3) K/uL [place] # (Auto) 0.6 (0.0-0.8) K/uL Eos # (Auto) 0.5 (0.0-0.7) K/uL Baso # (Auto) 0.0 (0.0-0.2) K/uL APTT 45 H D (21-34) SECONDS Sodium 136 (132-148) mmol/L Potassium 3.5 L (3.6-5.2) mmol/L Chloride 101 (98-107) mmol/L Carbon Dioxide 28 (22-30) mmol/L Anion Gap 10 (10-20) BUN 14 (7-17) mg/dL Creatinine 0.9 (0.7-1.2) mg/dL Est GFR ( Amer) > 60 Est GFR (Non-Af Amer) 60 Random Glucose 101 (65-105) mg/dL Calcium 8.6 (8.6-10.4) mg/dl Phosphorus 3.2 (2.5-4.5) mg/dL Magnesium 2.1 (1.6-2.3) mg/dL Total Bilirubin 0.6 (0.2-1.3) mg/dL AST 23 (14-36) U/L ALT 29 (9-52) U/L Alkaline Phosphatase 90 (38-126) U/L Total Protein 6.4 (6.3-8.3) g/dL Albumin 3.3 L (3.5-5.0) g/dL Globulin 3.1 (2.2-3.9) gm/dL Albumin/Globulin Ratio 1.1 (1.0-2.1) Laboratory Results - last 24 hr 12/05/17 12/05/17 12/05/17 06:46 06:46 06:46 WBC 8.6 RBC 3.64 L Hgb 9.2 L Hct 27.8 L MCV 76.3 L MCH 25.3 L MCHC 33.2 RDW 16.1 H Plt Count 229 MPV 8.1 Neut % (Auto) 71.3 Lymph % (Auto) 15.3 L [place] % (Auto) 7.0 Eos % (Auto) 6.2 H Baso % (Auto) 0.2 Neut # (Auto) 6.2 Lymph # (Auto) 1.3 [place] # (Auto) 0.6 Eos # (Auto) 0.5 Baso # (Auto) 0.0 APTT 45 H D Sodium 136 Potassium 3.5 L Chloride 101 Carbon Dioxide 28 Anion Gap 10 BUN 14 Creatinine 0.9 Est GFR ( Amer) > 60 Est GFR (Non-Af Amer) 60 Random Glucose 101 Calcium 8.6 Phosphorus 3.2 Magnesium 2.1 Total Bilirubin 0.6 AST 23 ALT 29 Alkaline Phosphatase 90 Total Protein 6.4 Albumin 3.3 L Globulin 3.1 Albumin/Globulin Ratio 1.1 Critical Care Progress Note - Nutrition Nutrition: Nutrition Category Date Time Status Heart Healthy Diet [DIET] Diets 12/03/17 Breakfast Active Attending/Attestation - Attestation I have personally seen and examined this patient.: Yes I have fully participated in the care of the patient.: Yes I have reviewed all pertinent clinical information: Yes Notes (Text): 12/05/17 17:58 patient seen and examined in the intensive care unit. s/p left transfemoral embolectomy with retrieval of clot and patch angioplast of the left common femoral artery. for AAA REPAIR CARDIOLOGY EVALUATION Continue anticoagulation
[2017-12-05] MEDS ORDERED: Potassium Chloride 20 mEq ER Tab PO ONE (15:24)
--- NOTE | 2017-12-05 16:05 | CP.PCM.PN ---
Subjective - Date & Time of Evaluation Date of Evaluation: 12/05/17 Time of Evaluation: 13:30 - Subjective Subjective: Vascular Surgery- Dr. Buckner Patient seen and examined at bedside. Pain getting better in legs. b/l LE warm, non-tender to palpation. dopplerable PT pulses b/l. No new complaints. + OOB in chair Objective - Vital Signs/Intake and Output Vital Signs (last 24 hours): Temp Pulse Resp BP Pulse Ox 98.5 F 73 15 129/51 L 98 12/04/17 20:00 12/05/17 03:26 12/05/17 03:26 12/05/17 03:26 12/05/17 03:26 Intake and Output: 12/05/17 12/05/17 06:59 18:59 Intake Total 1412.8 734.6 Output Total 500 Balance 912.8 734.6 - Medications Medications: Current Medications Amlodipine Besylate (Norvasc) 5 mg PO DAILY [facility] Last Admin: 12/05/17 10:30 Dose: 5 mg Aspirin (Aspirin Chewable) 81 mg PO DAILY [facility] Last Admin: 12/05/17 10:30 Dose: 81 mg Clopidogrel Bisulfate (Plavix) 75 mg PO DAILY [facility] Last Admin: 12/05/17 10:30 Dose: 75 mg Hydromorphone HCl (Dilaudid) 0.5 mg IVP Q4H PRN PRN Reason: Pain, moderate (4-7) Last Admin: 12/05/17 06:06 Dose: 0.5 mg Heparin Sodium/Sodium Chloride (Heparin 65922 Units/250ml 1/2 Normal Saline) 25 ,000 units in 250 mls @ 11.34 mls/hr IV .Q22H3M PRN; Protocol; 18 UNITS/KG/HR PRN Reason: PROTOCOL Last Admin: 12/05/17 04:22 Dose: 15 units/kg/hr, 9.45 mls/hr Levothyroxine Sodium (Synthroid) 25 mcg PO DAILY@0630 [facility] Last Admin: 12/05/17 06:06 Dose: 25 mcg Lorazepam (Ativan) 0.5 mg PO Q12H PRN PRN Reason: Anxiety Pantoprazole Sodium (Protonix Inj) 40 mg IVP DAILY [facility] Last Admin: 12/05/17 10:30 Dose: 40 mg Saccharomyces Boulardii (Florastor) 250 mg PO TID [facility] Last Admin: 12/05/17 15:00 Dose: 250 mg Vitamin A (Vitamin A & D Oint Ud Foilpak) 1 ea TOP DAILY [facility] Last Admin: 12/05/17 10:30 Dose: 1 ea - Labs Labs: 12/05/17 06:46 12/05/17 06:46 PT 11.4 SECONDS (9.7-12.2) 12/02/17 17:29 INR 1.0 12/02/17 17:29 APTT 45 SECONDS (21-34) H D 12/05/17 06:46 - Constitutional Appears: Non-toxic, No Acute Distress - Eye Exam Eye Exam: EOMI. absent: Scleral icterus - ENT Exam ENT Exam: Mucous Membranes Moist - Cardiovascular Exam Cardiovascular Exam: +S1, +S2. absent: Bradycardia, Tachycardia - GI/Abdominal Exam GI & Abdominal Exam: Soft, Normal Bowel Sounds. absent: Distended, Firm, Guarding, Rigid, Tenderness - Extremities Exam Additional comments: Incision C/D/I LLE dopplerable pulses bilateral - Neurological Exam Neurological Exam: Alert, Awake, Oriented x3 - Skin Skin Exam: Intact, Warm Assessment and Plan - Assessment and Plan (Free Text) Assessment: 82F s/p Left femoral embolectomy w/ intraoperative ateriogram w/patch closure, angiogram POD#3 Plan: - continue heparin GGT - plan for AAA repair as outpatient; will set a date prior to discharge - will need cards clearance and Echo prior to discharge; - encourage ambulation - Monitor pulses - Pain control PRN - medical management as per primary - further recs per Dr. Buckner surgical attending Estiven Nogueira PGY1
[2017-12-05] MEDS: Oxycodone/Acetaminophen 5/325 mg Tab PO PRN (22:27)
--- NOTE | 2017-12-05 23:07 | CP.PCM.PN ---
Subjective - Date & Time of Evaluation Date of Evaluation: 12/05/17 Time of Evaluation: 23:06 - Subjective Subjective: Patient feeling comfortable. Left leg pain is improving. Dopplerable pulses noted. Eating well. No diarrhea. Patient's vital signs stable. Blood pressure is controlled well. Saturation is 93%. Her chin to PERRLA. Chest good air entry bilaterally regular hospital nontender abdomen. Patient was seen the him specialist. Patient will be evaluated for cardiac risk for AAA repair. After the cardiology evaluation, patient can be discharged and will follow the patient Objective - Vital Signs/Intake and Output Vital Signs (last 24 hours): Temp Pulse Resp BP Pulse Ox 99.6 F 73 15 129/51 L 97 12/05/17 20:00 12/05/17 03:26 12/05/17 03:26 12/05/17 03:26 12/05/17 20:00 Intake and Output: 12/05/17 12/06/17 18:59 06:59 Intake Total 932.8 37.6 Output Total 650 Balance 282.8 37.6 - Medications Medications: Current Medications Amlodipine Besylate (Norvasc) 5 mg PO DAILY [facility] Last Admin: 12/05/17 10:30 Dose: 5 mg Aspirin (Aspirin Chewable) 81 mg PO DAILY [facility] Last Admin: 12/05/17 10:30 Dose: 81 mg Clopidogrel Bisulfate (Plavix) 75 mg PO DAILY [facility] Last Admin: 12/05/17 10:30 Dose: 75 mg Docusate Sodium (Colace) 100 mg PO DAILY [facility] Famotidine (Pepcid) 20 mg PO DAILY [facility] Heparin Sodium/Sodium Chloride (Heparin 97622 Units/250ml 1/2 Normal Saline) 25 ,000 units in 250 mls @ 11.34 mls/hr IV .Q22H3M PRN; Protocol; 18 UNITS/KG/HR PRN Reason: PROTOCOL Last Admin: 12/05/17 04:22 Dose: 15 units/kg/hr, 9.45 mls/hr Levothyroxine Sodium (Synthroid) 25 mcg PO DAILY@0630 [facility] Last Admin: 12/05/17 06:06 Dose: 25 mcg Lorazepam (Ativan) 0.5 mg PO Q12H PRN PRN Reason: Anxiety Oxycodone/Acetaminophen (Percocet 5/325 Mg Tab) 1 tab PO Q4H PRN PRN Reason: Pain, moderate (4-7) Stop: 12/08/17 16:25 Last Admin: 12/05/17 22:27 Dose: 1 tab Saccharomyces Boulardii (Florastor) 250 mg PO TID [facility] Last Admin: 12/05/17 19:00 Dose: 250 mg Vitamin A (Vitamin A & D Oint Ud Foilpak) 1 ea TOP DAILY [facility] Last Admin: 12/05/17 10:30 Dose: 1 ea - Labs Labs: 12/05/17 06:46 12/05/17 06:46 PT 11.4 SECONDS (9.7-12.2) 12/02/17 17:29 INR 1.0 12/02/17 17:29 APTT 45 SECONDS (21-34) H D 12/05/17 06:46
--- NOTE | 2017-12-05 23:16 | CP.PCM.CON ---
History of Present Illness - History of Present Illness History of Present Illness: 82 F with AAA s/p Lt Profunda thrombectomy consulted for Pre Op Cardiac eval Scheduled for stress test and ECHO in am Past Patient History - Past Medical History & Family History Past Medical History?: Yes - Past Social History Smoking Status: Never Smoked - CARDIAC Hx Hypertension: Yes - ENDOCRINE/METABOLIC Hx Hypothyroidism: Yes - MUSCULOSKELETAL/RHEUMATOLOGICAL Hx Falls: Yes - GASTROINTESTINAL Hx Gastritis: Yes - PSYCHIATRIC Hx Anxiety: Yes Hx Substance Use: No - ANESTHESIA Hx Anesthesia: Yes Hx Anesthesia Reactions: No Hx Malignant Hyperthermia: No Has any member of the family had a problem w/ anesthesia?: No Meds Allergies/Adverse Reactions: Allergies Allergy/AdvReac Type Severity Reaction Status Date / Time Penicillins Allergy COUGH Verified 12/02/17 16:36 cabbage Allergy Mild RASH Uncoded 12/03/17 08:49 carrots Allergy Mild RASH Uncoded 12/03/17 08:49 potato Allergy Mild RASH Uncoded 12/03/17 08:49 apple Allergy RASH Uncoded 12/03/17 08:49 seafood Allergy RASH Uncoded 12/03/17 08:49 - Medications Medications: Current Medications Amlodipine Besylate (Norvasc) 5 mg PO DAILY [facility] Last Admin: 12/05/17 10:30 Dose: 5 mg Aspirin (Aspirin Chewable) 81 mg PO DAILY [facility] Last Admin: 12/05/17 10:30 Dose: 81 mg Clopidogrel Bisulfate (Plavix) 75 mg PO DAILY [facility] Last Admin: 12/05/17 10:30 Dose: 75 mg Docusate Sodium (Colace) 100 mg PO DAILY [facility] Famotidine (Pepcid) 20 mg PO DAILY [facility] Heparin Sodium/Sodium Chloride (Heparin 38905 Units/250ml 1/2 Normal Saline) 25 ,000 units in 250 mls @ 11.34 mls/hr IV .Q22H3M PRN; Protocol; 18 UNITS/KG/HR PRN Reason: PROTOCOL Last Admin: 12/05/17 04:22 Dose: 15 units/kg/hr, 9.45 mls/hr Levothyroxine Sodium (Synthroid) 25 mcg PO DAILY@0630 [facility] Last Admin: 12/05/17 06:06 Dose: 25 mcg Lorazepam (Ativan) 0.5 mg PO Q12H PRN PRN Reason: Anxiety Oxycodone/Acetaminophen (Percocet 5/325 Mg Tab) 1 tab PO Q4H PRN PRN Reason: Pain, moderate (4-7) Stop: 12/08/17 16:25 Last Admin: 12/05/17 22:27 Dose: 1 tab Saccharomyces Boulardii (Florastor) 250 mg PO TID [facility] Last Admin: 12/05/17 19:00 Dose: 250 mg Vitamin A (Vitamin A & D Oint Ud Foilpak) 1 ea TOP DAILY [facility] Last Admin: 12/05/17 10:30 Dose: 1 ea Results - Vital Signs Recent Vital Signs: Last Vital Signs Temp 99.6 F 12/05/17 20:00 Pulse 73 12/05/17 03:26 Resp 15 12/05/17 03:26 BP 129/51 L 12/05/17 03:26 Pulse Ox 97 12/05/17 20:00 - Labs Result Diagrams: 12/05/17 06:46 12/05/17 06:46 Labs: Laboratory Results - last 24 hr 12/05/17 12/05/17 12/05/17 06:46 06:46 06:46 WBC 8.6 RBC 3.64 L Hgb 9.2 L Hct 27.8 L MCV 76.3 L MCH 25.3 L MCHC 33.2 RDW 16.1 H Plt Count 229 MPV 8.1 Neut % (Auto) 71.3 Lymph % (Auto) 15.3 L [place] % (Auto) 7.0 Eos % (Auto) 6.2 H Baso % (Auto) 0.2 Neut # (Auto) 6.2 Lymph # (Auto) 1.3 [place] # (Auto) 0.6 Eos # (Auto) 0.5 Baso # (Auto) 0.0 APTT 45 H D Sodium 136 Potassium 3.5 L Chloride 101 Carbon Dioxide 28 Anion Gap 10 BUN 14 Creatinine 0.9 Est GFR ( Amer) > 60 Est GFR (Non-Af Amer) 60 Random Glucose 101 Calcium 8.6 Phosphorus 3.2 Magnesium 2.1 Total Bilirubin 0.6 AST 23 ALT 29 Alkaline Phosphatase 90 Total Protein 6.4 Albumin 3.3 L Globulin 3.1 Albumin/Globulin Ratio 1.1
[2017-12-06] MEDS: Levothyroxine 25 MCG TAB PO SCH (06:26)
--- NOTE | 2017-12-06 08:28 | CP.PCM.PN ---
Subjective - Date & Time of Evaluation Date of Evaluation: 12/06/17 Time of Evaluation: 08:25 - Subjective Subjective: Patient feeling better. She is not in any distress. Complaining of pain in the left hip. No new symptoms Vital signs reviewed No neck vein distention noted Chest good air entry bilaterally, no wheezing or rales noted CVS regular heart sound, no murmur noted Abdomen soft, nontender. Extremities no pedal edema [facility] alert awake oriented -3, no functional neurological deficit Dopplerable pulse Assessment/plan 82 female peripheral vascular disease acute occlusion. After left femoral artery.. Patient has abdominal aortic aneurysm. Patient will seen by science professor, and after cardiology follow-up and evaluation will discharge the patient. Objective - Vital Signs/Intake and Output Vital Signs (last 24 hours): Temp Pulse Resp BP Pulse Ox 99.6 F 87 15 129/51 L 99 12/05/17 20:00 12/06/17 01:00 12/05/17 03:26 12/05/17 03:26 12/06/17 05:50 Intake and Output: 12/06/17 12/06/17 06:59 18:59 Intake Total 112.8 Output Total 450 Balance -337.2 - Medications Medications: Current Medications Amlodipine Besylate (Norvasc) 5 mg PO DAILY [facility] Last Admin: 12/05/17 10:30 Dose: 5 mg Aspirin (Aspirin Chewable) 81 mg PO DAILY [facility] Last Admin: 12/05/17 10:30 Dose: 81 mg Clopidogrel Bisulfate (Plavix) 75 mg PO DAILY [facility] Last Admin: 12/05/17 10:30 Dose: 75 mg Docusate Sodium (Colace) 100 mg PO DAILY [facility] Famotidine (Pepcid) 20 mg PO DAILY [facility] Heparin Sodium/Sodium Chloride (Heparin 97007 Units/250ml 1/2 Normal Saline) 25 ,000 units in 250 mls @ 11.34 mls/hr IV .Q22H3M PRN; Protocol; 18 UNITS/KG/HR PRN Reason: PROTOCOL Last Admin: 12/05/17 04:22 Dose: 15 units/kg/hr, 9.45 mls/hr Levothyroxine Sodium (Synthroid) 25 mcg PO DAILY@0630 [facility] Last Admin: 12/06/17 06:26 Dose: 25 mcg Lorazepam (Ativan) 0.5 mg PO Q12H PRN PRN Reason: Anxiety Oxycodone/Acetaminophen (Percocet 5/325 Mg Tab) 1 tab PO Q4H PRN PRN Reason: Pain, moderate (4-7) Stop: 12/08/17 16:25 Last Admin: 12/05/17 22:27 Dose: 1 tab Saccharomyces Boulardii (Florastor) 250 mg PO TID [facility] Last Admin: 12/05/17 19:00 Dose: 250 mg Vitamin A (Vitamin A & D Oint Ud Foilpak) 1 ea TOP DAILY [facility] Last Admin: 12/05/17 10:30 Dose: 1 ea - Labs Labs: 12/05/17 06:46 12/05/17 06:46 PT 11.4 SECONDS (9.7-12.2) 12/02/17 17:29 INR 1.0 12/02/17 17:29 APTT 45 SECONDS (21-34) H 12/06/17 06:18
[2017-12-06] MEDS ORDERED: Potassium Chloride 20 mEq/15 ml LIQ UD PO ONE (08:30)
[2017-12-06] MEDS: Saccharomyces Boulardi 250 mg Cap PO SCH ×3 (09:15→17:16)
[2017-12-06] MEDS: Vitamins A & D Oint UD Foilpak TOP SCH (09:22)
--- NOTE | 2017-12-06 11:34 | CP.PCM.PN ---
Subjective - Date & Time of Evaluation Date of Evaluation: 12/06/17 Time of Evaluation: 06:50 - Subjective Subjective: Vascular Surgery- Dr. Buckner Patient seen and examined at bedside this AM. No acute events overnight. No new complaints. Leg warm w/ dopplerable pulses bilateral. Pain progressively improving in LLE. + OOB 2C. tolerating current diet. Denies F/C CP/SOB N/V/D Objective - Vital Signs/Intake and Output Vital Signs (last 24 hours): Temp Pulse Resp BP Pulse Ox 98.9 F 87 15 129/51 L 99 12/06/17 04:00 12/06/17 01:00 12/05/17 03:26 12/05/17 03:26 12/06/17 05:50 Intake and Output: 12/06/17 12/06/17 06:59 18:59 Intake Total 112.8 Output Total 450 Balance -337.2 - Medications Medications: Current Medications Amlodipine Besylate (Norvasc) 5 mg PO DAILY [facility] Last Admin: 12/06/17 09:15 Dose: Not Given Aspirin (Aspirin Chewable) 81 mg PO DAILY [facility] Last Admin: 12/06/17 09:15 Dose: Not Given Clopidogrel Bisulfate (Plavix) 75 mg PO DAILY [facility] Last Admin: 12/06/17 09:16 Dose: Not Given Docusate Sodium (Colace) 100 mg PO DAILY [facility] Last Admin: 12/06/17 09:15 Dose: Not Given Famotidine (Pepcid) 20 mg PO DAILY [facility] Last Admin: 12/06/17 09:15 Dose: Not Given Heparin Sodium/Sodium Chloride (Heparin 24908 Units/250ml 1/2 Normal Saline) 25 ,000 units in 250 mls @ 11.34 mls/hr IV .Q22H3M PRN; Protocol; 18 UNITS/KG/HR PRN Reason: PROTOCOL Last Admin: 12/05/17 04:22 Dose: 15 units/kg/hr, 9.45 mls/hr Levothyroxine Sodium (Synthroid) 25 mcg PO DAILY@0630 [facility] Last Admin: 12/06/17 06:26 Dose: 25 mcg Lorazepam (Ativan) 0.5 mg PO Q12H PRN PRN Reason: Anxiety Oxycodone/Acetaminophen (Percocet 5/325 Mg Tab) 1 tab PO Q4H PRN PRN Reason: Pain, moderate (4-7) Stop: 12/08/17 16:25 Last Admin: 12/05/17 22:27 Dose: 1 tab Saccharomyces Boulardii (Florastor) 250 mg PO TID [facility] Last Admin: 12/06/17 09:15 Dose: Not Given Vitamin A (Vitamin A & D Oint Ud Foilpak) 1 ea TOP DAILY [facility] Last Admin: 12/06/17 09:22 Dose: 1 ea - Labs Labs: 12/05/17 06:46 12/05/17 06:46 PT 11.4 SECONDS (9.7-12.2) 12/02/17 17:29 INR 1.0 12/02/17 17:29 APTT 45 SECONDS (21-34) H 12/06/17 06:18 - Constitutional Appears: Non-toxic, No Acute Distress - Eye Exam Eye Exam: EOMI. absent: Scleral icterus - ENT Exam ENT Exam: Mucous Membranes Moist - Respiratory Exam Respiratory Exam: NORMAL BREATHING PATTERN. absent: Accessory Muscle Use, Respiratory Distress - Cardiovascular Exam Cardiovascular Exam: +S1, +S2. absent: Bradycardia, Tachycardia - GI/Abdominal Exam GI & Abdominal Exam: Soft. absent: Firm, Guarding, Rigid, Tenderness - Back Exam Additional comments: dopplerable LLE pulses leg warm pt OOB to chair during encounter - Neurological Exam Neurological Exam: Alert, Awake, Oriented x3 - Psychiatric Exam Psychiatric exam: Normal Affect - Skin Skin Exam: Intact, Warm Assessment and Plan - Assessment and Plan (Free Text) Assessment: 82F s/p Left femoral embolectomy w/ intraoperative ateriogram w/patch closure, angiogram POD#4 Plan: - plan for AAA repair as outpatient; will set a date prior to discharge- with plan for redmission in near future - c/s Cardiology- Dr. Keith- plan for stress test and echo; all cards recs appreciated - encourage ambulation - Monitor pulses - Pain control PRN - medical management as per primary - further recs per Dr. Buckner surgical attending Estiven Nogueira PGY1
--- NOTE | 2017-12-06 12:19 | CP.PCM.PN ---
Subjective - Date & Time of Evaluation Date of Evaluation: 12/06/17 Time of Evaluation: 12:18 - Subjective Subjective: doing well leg warm discussed timing and grants officer fu with patient . Will set up date for AAA repair prior to dc , with plan for redmission in near future Objective - Vital Signs/Intake and Output Vital Signs (last 24 hours): Temp Pulse Resp BP Pulse Ox 98.9 F 87 15 129/51 L 99 12/06/17 04:00 12/06/17 01:00 12/05/17 03:26 12/05/17 03:26 12/06/17 05:50 Intake and Output: 12/06/17 12/06/17 06:59 18:59 Intake Total 112.8 Output Total 450 Balance -337.2 - Medications Medications: Current Medications Amlodipine Besylate (Norvasc) 5 mg PO DAILY [facility] Last Admin: 12/05/17 10:30 Dose: 5 mg Aspirin (Aspirin Chewable) 81 mg PO DAILY [facility] Last Admin: 12/05/17 10:30 Dose: 81 mg Clopidogrel Bisulfate (Plavix) 75 mg PO DAILY [facility] Last Admin: 12/05/17 10:30 Dose: 75 mg Docusate Sodium (Colace) 100 mg PO DAILY [facility] Famotidine (Pepcid) 20 mg PO DAILY [facility] Heparin Sodium/Sodium Chloride (Heparin 22289 Units/250ml 1/2 Normal Saline) 25 ,000 units in 250 mls @ 11.34 mls/hr IV .Q22H3M PRN; Protocol; 18 UNITS/KG/HR PRN Reason: PROTOCOL Last Admin: 12/05/17 04:22 Dose: 15 units/kg/hr, 9.45 mls/hr Levothyroxine Sodium (Synthroid) 25 mcg PO DAILY@0630 [facility] Last Admin: 12/06/17 06:26 Dose: 25 mcg Lorazepam (Ativan) 0.5 mg PO Q12H PRN PRN Reason: Anxiety Oxycodone/Acetaminophen (Percocet 5/325 Mg Tab) 1 tab PO Q4H PRN PRN Reason: Pain, moderate (4-7) Stop: 12/08/17 16:25 Last Admin: 12/05/17 22:27 Dose: 1 tab Saccharomyces Boulardii (Florastor) 250 mg PO TID [facility] Last Admin: 12/06/17 09:15 Dose: Not Given Vitamin A (Vitamin A & D Oint Ud Foilpak) 1 ea TOP DAILY [facility] Last Admin: 12/06/17 09:22 Dose: 1 ea - Labs Labs: 12/05/17 06:46 12/05/17 06:46 PT 11.4 SECONDS (9.7-12.2) 12/02/17 17:29 INR 1.0 12/02/17 17:29 APTT 45 SECONDS (21-34) H 12/06/17 06:18
--- NOTE | 2017-12-06 12:23 | CP.PCM.PN ---
Subjective - Date & Time of Evaluation Date of Evaluation: 12/06/17 Time of Evaluation: 07:15 - Subjective Subjective: Vascular Surgery- Dr. Buckner Patient seen and examined at bedside this AM. Leg warm w/ dopplerable pulses bilateral. No new complaints. Denies F/C CP/SOB N/V/D Objective - Vital Signs/Intake and Output Vital Signs (last 24 hours): Temp Pulse Resp BP Pulse Ox 98.9 F 87 15 129/51 L 99 12/06/17 04:00 12/06/17 01:00 12/05/17 03:26 12/05/17 03:26 12/06/17 05:50 Intake and Output: 12/06/17 12/06/17 06:59 18:59 Intake Total 112.8 Output Total 450 Balance -337.2 - Medications Medications: Current Medications Amlodipine Besylate (Norvasc) 5 mg PO DAILY [facility] Last Admin: 12/05/17 10:30 Dose: 5 mg Aspirin (Aspirin Chewable) 81 mg PO DAILY [facility] Last Admin: 12/05/17 10:30 Dose: 81 mg Clopidogrel Bisulfate (Plavix) 75 mg PO DAILY [facility] Last Admin: 12/05/17 10:30 Dose: 75 mg Docusate Sodium (Colace) 100 mg PO DAILY [facility] Famotidine (Pepcid) 20 mg PO DAILY [facility] Heparin Sodium/Sodium Chloride (Heparin 75586 Units/250ml 1/2 Normal Saline) 25 ,000 units in 250 mls @ 11.34 mls/hr IV .Q22H3M PRN; Protocol; 18 UNITS/KG/HR PRN Reason: PROTOCOL Last Admin: 12/05/17 04:22 Dose: 15 units/kg/hr, 9.45 mls/hr Levothyroxine Sodium (Synthroid) 25 mcg PO DAILY@0630 [facility] Last Admin: 12/06/17 06:26 Dose: 25 mcg Lorazepam (Ativan) 0.5 mg PO Q12H PRN PRN Reason: Anxiety Oxycodone/Acetaminophen (Percocet 5/325 Mg Tab) 1 tab PO Q4H PRN PRN Reason: Pain, moderate (4-7) Stop: 12/08/17 16:25 Last Admin: 12/05/17 22:27 Dose: 1 tab Saccharomyces Boulardii (Florastor) 250 mg PO TID [facility] Last Admin: 12/06/17 09:15 Dose: Not Given Vitamin A (Vitamin A & D Oint Ud Foilpak) 1 ea TOP DAILY [facility] Last Admin: 12/06/17 09:22 Dose: 1 ea - Labs Labs: 12/05/17 06:46 12/05/17 06:46 PT 11.4 SECONDS (9.7-12.2) 12/02/17 17:29 INR 1.0 12/02/17 17:29 APTT 45 SECONDS (21-34) H 12/06/17 06:18 - Constitutional Appears: Non-toxic, No Acute Distress - Head Exam Head Exam: ATRAUMATIC - Eye Exam Eye Exam: EOMI. absent: Scleral icterus - Respiratory Exam Respiratory Exam: NORMAL BREATHING PATTERN. absent: Accessory Muscle Use, Respiratory Distress - Cardiovascular Exam Cardiovascular Exam: +S1, +S2. absent: Bradycardia, Tachycardia - GI/Abdominal Exam GI & Abdominal Exam: Soft. absent: Distended, Firm, Guarding, Rigid, Tenderness - Extremities Exam Additional comments: dopplerable LLE pulses leg warm pt OOB to chair during encounter - Neurological Exam Neurological Exam: Alert, Awake, Oriented x3 - Skin Skin Exam: Intact, Warm Assessment and Plan - Assessment and Plan (Free Text) Plan: doing well leg warm discussed timing and termite control service representative fu with patient . Will set up date for AAA repair prior to dc , with plan for redmission in near future
[2017-12-06] MEDS: Heparin25000 units/250ml 1/2NS 25,000 UNITS/250 ML BAG IV PRN (12:37)
[2017-12-06] MEDS: Oxycodone/Acetaminophen 5/325 mg Tab PO PRN (12:47)
[2017-12-06 17:59] VITALS: RESP 18
--- NOTE | 2017-12-06 21:54 | CP.PCM.PN ---
Subjective - Date & Time of Evaluation Date of Evaluation: 12/06/17 Time of Evaluation: 16:40 - Subjective Subjective: Patient without cardiac events For stress test tomorrow Objective - Vital Signs/Intake and Output Vital Signs (last 24 hours): Temp Pulse Resp BP Pulse Ox 98 F 94 H 18 154/74 H 96 12/06/17 17:58 12/06/17 17:58 12/06/17 17:58 12/06/17 17:58 12/06/17 17:58 Intake and Output: 12/06/17 12/07/17 18:59 06:59 Intake Total 378.4 Output Total 1000 Balance -621.6 - Medications Medications: Current Medications Amlodipine Besylate (Norvasc) 5 mg PO DAILY [facility] Last Admin: 12/06/17 12:44 Dose: 5 mg Aspirin (Aspirin Chewable) 81 mg PO DAILY [facility] Last Admin: 12/06/17 12:44 Dose: 81 mg Clopidogrel Bisulfate (Plavix) 75 mg PO DAILY [facility] Last Admin: 12/06/17 12:44 Dose: 75 mg Docusate Sodium (Colace) 100 mg PO DAILY [facility] Last Admin: 12/06/17 12:44 Dose: 100 mg Famotidine (Pepcid) 20 mg PO DAILY [facility] Last Admin: 12/06/17 12:44 Dose: 20 mg Heparin Sodium/Sodium Chloride (Heparin 56695 Units/250ml 1/2 Normal Saline) 25 ,000 units in 250 mls @ 11.34 mls/hr IV .Q22H3M PRN; Protocol; 18 UNITS/KG/HR PRN Reason: PROTOCOL Last Admin: 12/06/17 12:37 Dose: 15 units/kg/hr, 9.45 mls/hr Levothyroxine Sodium (Synthroid) 25 mcg PO DAILY@0630 [facility] Last Admin: 12/06/17 06:26 Dose: 25 mcg Lorazepam (Ativan) 0.5 mg PO Q12H PRN PRN Reason: Anxiety Oxycodone/Acetaminophen (Percocet 5/325 Mg Tab) 1 tab PO Q4H PRN PRN Reason: Pain, moderate (4-7) Stop: 12/08/17 16:25 Last Admin: 12/06/17 12:47 Dose: 1 tab Saccharomyces Boulardii (Florastor) 250 mg PO TID [facility] Last Admin: 12/06/17 17:16 Dose: 250 mg Vitamin A (Vitamin A & D Oint Ud Foilpak) 1 ea TOP DAILY [facility] Last Admin: 12/06/17 09:22 Dose: 1 ea - Labs Labs: 12/05/17 06:46 12/05/17 06:46 PT 11.4 SECONDS (9.7-12.2) 12/02/17 17:29 INR 1.0 12/02/17 17:29 APTT 45 SECONDS (21-34) H 12/06/17 06:18
[2017-12-07] MEDS: Levothyroxine 25 MCG TAB PO SCH (06:58)
[2017-12-07 08:18] VITALS: BP 129/70; TEMP 98.7; O2SAT 97
[2017-12-07] MEDS ORDERED: Aminophylline 25 mg/ml Inj ONE (08:18)
[2017-12-07] MEDS: Oxycodone/Acetaminophen 5/325 mg Tab PO PRN ×3 (08:41→19:46)
--- NOTE | 2017-12-07 09:09 | CP.PCM.PN ---
Subjective - Date & Time of Evaluation Date of Evaluation: 12/07/17 Time of Evaluation: 06:45 - Subjective Subjective: Vascular Surgery- Dr. Buckner Patient seen and examined at bedside this AM. No acute events overnight. + OOB to chair. tolerating current diet. b/l LE warm non-tender. Denies F/C CP/SOB N/V /D Objective - Vital Signs/Intake and Output Vital Signs (last 24 hours): Temp Pulse Resp BP Pulse Ox 98.7 F 83 18 129/70 97 12/07/17 07:30 12/07/17 08:30 12/07/17 07:30 12/07/17 07:30 12/07/17 07:30 - Medications Medications: Current Medications Amlodipine Besylate (Norvasc) 5 mg PO DAILY [facility] Last Admin: 12/06/17 12:44 Dose: 5 mg Aspirin (Aspirin Chewable) 81 mg PO DAILY [facility] Last Admin: 12/06/17 12:44 Dose: 81 mg Clopidogrel Bisulfate (Plavix) 75 mg PO DAILY [facility] Last Admin: 12/06/17 12:44 Dose: 75 mg Docusate Sodium (Colace) 100 mg PO DAILY [facility] Last Admin: 12/06/17 12:44 Dose: 100 mg Famotidine (Pepcid) 20 mg PO DAILY [facility] Last Admin: 12/06/17 12:44 Dose: 20 mg Heparin Sodium/Sodium Chloride (Heparin 85853 Units/250ml 1/2 Normal Saline) 25 ,000 units in 250 mls @ 11.34 mls/hr IV .Q22H3M PRN; Protocol; 18 UNITS/KG/HR PRN Reason: PROTOCOL Last Admin: 12/06/17 12:37 Dose: 15 units/kg/hr, 9.45 mls/hr Levothyroxine Sodium (Synthroid) 25 mcg PO DAILY@0630 [facility] Last Admin: 12/07/17 06:58 Dose: Not Given Lorazepam (Ativan) 0.5 mg PO Q12H PRN PRN Reason: Anxiety Oxycodone/Acetaminophen (Percocet 5/325 Mg Tab) 1 tab PO Q4H PRN PRN Reason: Pain, moderate (4-7) Stop: 12/08/17 16:25 Last Admin: 12/07/17 08:41 Dose: 1 tab Saccharomyces Boulardii (Florastor) 250 mg PO TID [facility] Last Admin: 12/06/17 17:16 Dose: 250 mg Vitamin A (Vitamin A & D Oint Ud Foilpak) 1 ea TOP DAILY [facility] Last Admin: 12/06/17 09:22 Dose: 1 ea - Labs Labs: 12/05/17 06:46 12/05/17 06:46 PT 11.4 SECONDS (9.7-12.2) 12/02/17 17:29 INR 1.0 12/02/17 17:29 APTT 45 SECONDS (21-34) H 12/06/17 06:18 - Constitutional Appears: Non-toxic, No Acute Distress - Eye Exam Eye Exam: EOMI. absent: Scleral icterus - ENT Exam ENT Exam: Mucous Membranes Moist - Cardiovascular Exam Cardiovascular Exam: +S1, +S2. absent: Bradycardia, Tachycardia - GI/Abdominal Exam GI & Abdominal Exam: Soft. absent: Distended, Firm, Guarding, Rigid, Tenderness - Extremities Exam Additional comments: b/l LE warm. dopplerable DP and PT pulses - Neurological Exam Neurological Exam: Alert, Awake, Oriented x3 - Psychiatric Exam Psychiatric exam: Normal Affect Assessment and Plan - Assessment and Plan (Free Text) Assessment: 82F s/p Left femoral embolectomy w/ intraoperative ateriogram w/patch closure, angiogram POD#4 Plan: - plan for AAA repair as outpatient; will set a date prior to discharge- with plan for redmission in near future - c/s Cardiology- Dr. Keith- plan for stress test today; all cards recs appreciated - aggressive physical therapy encourage ambulation - Monitor pulses - Pain control PRN - medical management as per primary - further recs per Dr. Buckner surgical attending Estiven Nogueira PGY1
[2017-12-07] MEDS: Saccharomyces Boulardi 250 mg Cap PO SCH ×3 (11:49→17:05)
[2017-12-07] MEDS: Vitamins A & D Oint UD Foilpak TOP SCH (12:05)
--- NOTE | 2017-12-07 14:59 | RAD ---
PROCEDURE: Right Foot Radiographs. HISTORY: PAIN COMPARISON: 06/05/2014 FINDINGS: BONES: No fracture. There is abundant calcification of the posterior insertion of the plantar fascia along the dorsal calcaneus an along the plantar surface of the hindfoot. Additional linear calcification is seen along the anterior aspect of the plantar fascia. This has increased in extent when compared to prior examination. There is additional linear calcification seen in immediately medial to the navicular. JOINTS: Normal. SOFT TISSUES: As above OTHER FINDINGS: None. IMPRESSION: Increasing calcification of the plantar fascia compared to prior examination. Linear calcification adjacent to the navicular. Otherwise unremarkable.
--- NOTE | 2017-12-07 16:13 | CP.PCM.PN ---
Subjective - Date & Time of Evaluation Date of Evaluation: 12/07/17 Time of Evaluation: 16:09 - Subjective Subjective: PT SEEN TODAY BY DR. MERCADO AND DR. DEL ROSARIO; CLEARED BY BOTH FOR D/C TODAY.. HAD STRESS TEST TODAY WITH DR. PERKINS, BUT ALSO CLEARED CARDIOLOGY GRAY FOR D/C. PT INSTRUCTED TO F/U WITH PEDRO DEL ROSARIO IN THE OFFICE NEXT WEEK TO DISCUSS AAA REPAIR SURGERY. TO CONTINUE PLAVIX AND ASA DAILY. ALL OTHER HOME MEDS REFILLED. COLACE GIVEN TO REDUCE CONSTIPATION AND STRAINING W BMS. RT FOOT XRAY DONE EARLIER PT WAS C/O PAIN--SEE RESULTS REPORT; NO FRACTURE NOTED. DISCUSSED ALL D/C INFO, F/U INFO, AND ALL RX WITH THE PT AND HER DAUGHTER AT BEDSIDE. THEY BOTH VERBALIZE UNDERSTANDING. ALSO GIVEN RX FOR ROLLATOR AND TO INCREASE PORTABLE TRACK LINE MARKER HOURS AT HOME. CM AND SW TO ARRANGE HOME TRANSPORTATION THIS AFTERNOON. NO FURTHER ORDERS. - SEGUIMIENTO CON EL DR. MERCADO O DR. REARDON EN LA OFICINA EN EL PLAZO DE 5- 7 MAJOR --- LLAME A LA OFICINA EL LUNES PARA HACER YHDE ALANNAH. - SEGUIMIENTO CON EL DR. DEL ROSARIO EN LA OFICINA LA PRXIMA SEMANA --- LLAME A LA OFICINA EL LUNES PARA PROGRAMAR JOSSELIN ALANNAH. ASEGRESE DE JIM EL DR. DEL ROSARIO PARA EL VIERNES, . - DALILA HYDE VISITA CON EL DR. DEL ROSARIO, VA A DISCUTIR CON USTED LA CIRUGA NECESARIA PARA REPARAR HYDE ARTERIA ABDOMINAL. TAMBIN DISCUTIR CONTIGO CUANDO DEBES TENER LA CIRUGIA. - SEGUIMIENTO CON EL DR. PERKINS (CARDILOGO) EN LA OFICINA EN 2 SEMANAS --- LLAME A LA OFICINA EL LUNES PARA HACER HYDE ALANNAH. -CONTINUE LOS MEDICAMENTOS DE HYDE CASA BERE HABITUALMENTE. LAS RECETAS DE RECARGA SE BOTELLO ENVIADO A HYDE FARMACIA - RECOGER ANTES DE SALIR DE HYDE MEDICINA. -NUEVAS PRESCRIPCIONES INCLUYEN: 1) PLAVIX (DILUYENTE DE MEGA Y PREVIENE EL CRECIMIENTO DEL COLESTEROL EN LOS RECIPIENTES DE MEGA) --- 75 MG (NOEMY 1 TABLETA) POR LA BOCA JOSSELIN VEZ AL DA ( NOEMY CADA DA CON HYDE ASPIRINA). 2) COLACE (DESCALZADOR DE TABURETES) 100 MG (NOEMY 1 CPSULA) POR LA BOCA DOS VECES AL DA --- DEJE DE NOEMY SI TIENE DIARREA. -IT ES MUY IMPORTANTE QUE ADMINISTRE HYDE ESTREIMIENTO DEBIDO A HYDE ANEURISMO ARTERIAL --- NO SE APRIETE CUANDO VAYA A EL CUARTO DE EDDIE. -SI TIENE ALGUNA OTRA PREGUNTA O PREOCUPACIN, PNGASE EN CONTACTO CON EL DR. TREVOR TREVINO -FOLLOW UP WITH DR. MERCADO OR DR. REARDON IN THE OFFICE WITHIN 5-7 DAYS--- CALL THE OFFICE ON SUNDAY TO MAKE YOUR APPOINTMENT. -FOLLOW UP WITH DR. DEL ROSARIO IN THE OFFICE NEXT WEEK---CALL THE OFFICE ON SUNDAY TO SCHEDULE AN APPOINTMENT. MAKE SURE YOU SEE DR. DEL ROSARIO BY DECEMBER 14. -DURING YOUR VISIT WITH DR. DEL ROSARIO, HE WILL DISCUSS WITH YOU THE SURGERY NEEDED TO REPAIR YOUR ABDOMINAL ARTERY. HE WILL ALSO DISCUSS WITH YOU WHEN YOU SHOULD HAVE THE SURGERY. -FOLLOW UP WITH DR. PERKINS (DESKTOP SPECIALIST) IN THE OFFICE IN 2 WEEKS---CALL THE OFFICE ON SUNDAY TO MAKE YOUR APPOINTMENT. -CONTINUE YOUR HOME MEDICATIONS USUAL. REFILL PRESCRIPTIONS HAVE BEEN SENT TO YOUR PHARMACY--PLEASE CARBIDE GRINDER BEFORE YOU RUN OUT OF YOUR MEDICINE. -NEW PRESCRIPTIONS INCLUDE: 1) PLAVIX (BLOOD THINNER AND PREVENTS CHOLESTEROL BUILD UP IN BLOOD VESSELS)--- 75 MG (TAKE 1 TABLET) BY MOUTH ONCE A DAY (TAKE EVERY DAY WITH YOUR ASPIRIN). 2) COLACE (STOOL SOFTENER) 100 MG (TAKE 1 CAPSULE) BY MOUTH TWO TIMES A DAY--- STOP TAKING IF YOU HAVE DIARRHEA. 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 -IF YOU HAVE ANY FURTHER QUESTIONS OR CONCERNS, CONTACT DR. MERCADO'S OFFICE Objective - Vital Signs/Intake and Output Vital Signs (last 24 hours): Temp Pulse Resp BP Pulse Ox 98.7 F 83 18 129/70 97 12/07/17 07:30 12/07/17 08:30 12/07/17 07:30 12/07/17 07:30 12/07/17 07:30 - Medications Medications: Current Medications Amlodipine Besylate (Norvasc) 5 mg PO DAILY [facility] Last Admin: 12/07/17 12:05 Dose: 5 mg Aspirin (Aspirin Chewable) 81 mg PO DAILY [facility] Last Admin: 12/07/17 12:04 Dose: 81 mg Clopidogrel Bisulfate (Plavix) 75 mg PO DAILY [facility] Last Admin: 12/07/17 12:04 Dose: 75 mg Docusate Sodium (Colace) 100 mg PO DAILY [facility] Last Admin: 12/07/17 12:04 Dose: 100 mg Famotidine (Pepcid) 20 mg PO DAILY [facility] Last Admin: 12/07/17 12:04 Dose: 20 mg Heparin Sodium/Sodium Chloride (Heparin 89348 Units/250ml 1/2 Normal Saline) 25 ,000 units in 250 mls @ 11.34 mls/hr IV .Q22H3M PRN; Protocol; 18 UNITS/KG/HR PRN Reason: PROTOCOL Last Admin: 12/06/17 12:37 Dose: 15 units/kg/hr, 9.45 mls/hr Levothyroxine Sodium (Synthroid) 25 mcg PO DAILY@0630 [facility] Last Admin: 12/07/17 06:58 Dose: Not Given Lorazepam (Ativan) 0.5 mg PO Q12H PRN PRN Reason: Anxiety Oxycodone/Acetaminophen (Percocet 5/325 Mg Tab) 1 tab PO Q4H PRN PRN Reason: Pain, moderate (4-7) Stop: 12/08/17 16:25 Last Admin: 12/07/17 14:19 Dose: 1 tab Saccharomyces Boulardii (Florastor) 250 mg PO TID [facility] Last Admin: 12/07/17 13:04 Dose: 250 mg Vitamin A (Vitamin A & D Oint Ud Foilpak) 1 ea TOP DAILY [facility] Last Admin: 12/07/17 12:05 Dose: 1 ea - Labs Labs: 12/05/17 06:46 12/05/17 06:46 PT 11.4 SECONDS (9.7-12.2) 12/02/17 17:29 INR 1.0 12/02/17 17:29 APTT 45 SECONDS (21-34) H 12/06/17 06:18
[2017-12-07 16:39] VITALS: PULSE 78
--- NOTE | 2017-12-07 22:16 | CP.PCM.DIS ---
Provider - Provider Date of Admission: 12/02/17 17:51 Attending physician: Marc Mercado MD Time Spent in preparation of Discharge (in minutes): 45 Hospital Course - Lab Results Lab Results: Micro Results 12/06/17 19:00 Naris MRSA Culture - Final MRSA NOT DETECTED 12/02/17 23:20 Naris MRSA Culture (Admit) - Final MRSA NOT DETECTED Most Recent Lab Values WBC 8.6 K/uL (4.8-10.8) 12/05/17 06:46 RBC 3.64 Mil/uL (3.80-5.20) L 12/05/17 06:46 Hgb 9.2 g/dL (11.0-16.0) L 12/05/17 06:46 Hct 27.8 % (34.0-47.0) L 12/05/17 06:46 MCV 76.3 fL (81.0-99.0) L 12/05/17 06:46 MCH 25.3 pg (27.0-31.0) L 12/05/17 06:46 MCHC 33.2 g/dL (33.0-37.0) 12/05/17 06:46 RDW 16.1 % (11.5-14.5) H 12/05/17 06:46 Plt Count 229 K/uL (130-400) 12/05/17 06:46 MPV 8.1 fL (7.2-11.7) 12/05/17 06:46 Neut % (Auto) 71.3 % (50.0-75.0) 12/05/17 06:46 Lymph % (Auto) 15.3 % (20.0-40.0) L 12/05/17 06:46 [place] % (Auto) 7.0 % (0.0-10.0) 12/05/17 06:46 Eos % (Auto) 6.2 % (0.0-4.0) H 12/05/17 06:46 Baso % (Auto) 0.2 % (0.0-2.0) 12/05/17 06:46 Neut # (Auto) 6.2 K/uL (1.8-7.0) 12/05/17 06:46 Lymph # (Auto) 1.3 K/uL (1.0-4.3) 12/05/17 06:46 [place] # (Auto) 0.6 K/uL (0.0-0.8) 12/05/17 06:46 Eos # (Auto) 0.5 K/uL (0.0-0.7) 12/05/17 06:46 Baso # (Auto) 0.0 K/uL (0.0-0.2) 12/05/17 06:46 Neutrophils % (Manual) 90 % (50-75) H 12/03/17 07:14 Band Neutrophils % 1 % (0-2) 12/03/17 07:14 Lymphocytes % (Manual) 6 % (20-40) L 12/03/17 07:14 Monocytes % (Manual) 3 % (0-10) 12/03/17 07:14 Platelet Estimate Normal (NORMAL) 12/03/17 07:14 Hypochromasia (manual) Slight 12/03/17 07:14 Poikilocytosis (manual Slight 12/03/17 07:14 Anisocytosis (manual) Slight 12/03/17 07:14 Ovalocytes Slight 12/03/17 07:14 PT 11.4 SECONDS (9.7-12.2) 12/02/17 17:29 INR 1.0 12/02/17 17:29 APTT 45 SECONDS (21-34) H 12/06/17 06:18 Sodium 136 mmol/L (132-148) 12/05/17 06:46 Potassium 3.5 mmol/L (3.6-5.2) L 12/05/17 06:46 Chloride 101 mmol/L (98-107) 12/05/17 06:46 Carbon Dioxide 28 mmol/L (22-30) 12/05/17 06:46 Anion Gap 10 (10-20) 12/05/17 06:46 BUN 14 mg/dL (7-17) 12/05/17 06:46 Creatinine 0.9 mg/dL (0.7-1.2) 12/05/17 06:46 Est GFR ( Amer) > 60 12/05/17 06:46 Est GFR (Non-Af Amer) 60 12/05/17 06:46 Random Glucose 101 mg/dL (65-105) 12/05/17 06:46 Lactic Acid 1.0 mmol/L (0.7-2.1) 12/03/17 00:26 Calcium 8.6 mg/dl (8.6-10.4) 12/05/17 06:46 Phosphorus 3.2 mg/dL (2.5-4.5) 12/05/17 06:46 Magnesium 2.1 mg/dL (1.6-2.3) 12/05/17 06:46 Total Bilirubin 0.6 mg/dL (0.2-1.3) 12/05/17 06:46 AST 23 U/L (14-36) 12/05/17 06:46 ALT 29 U/L (9-52) 12/05/17 06:46 Alkaline Phosphatase 90 U/L (38-126) 12/05/17 06:46 CK-MB (Mass) 3.46 ng/mL (0.0-3.38) H 12/03/17 06:37 Total Protein 6.4 g/dL (6.3-8.3) 12/05/17 06:46 Albumin 3.3 g/dL (3.5-5.0) L 12/05/17 06:46 Globulin 3.1 gm/dL (2.2-3.9) 12/05/17 06:46 Albumin/Globulin Ratio 1.1 (1.0-2.1) 12/05/17 06:46 Triglycerides 51 mg/dL (0-149) 12/03/17 06:37 Cholesterol 182 mg/dL (0-199) 12/03/17 06:37 LDL Cholesterol Direct 105 mg/dL (0-129) 12/03/17 06:37 HDL Cholesterol 61 mg/dL (30-70) 12/03/17 06:37 Urine Color Straw (YELLOW) 12/02/17 19:30 Urine Clarity Clear (Clear) 12/02/17 19:30 Urine pH 5.0 (5.0-8.0) 12/02/17 19:30 Ur Specific [place] 1.035 (1.003-1.030) H 12/02/17 19:30 Urine Protein Negative mg/dL (NEGATIVE) 12/02/17 19:30 Urine Glucose (UA) Normal mg/dL (Normal) 12/02/17 19:30 Urine Ketones Negative mg/dL (NEGATIVE) 12/02/17 19:30 Urine Blood 1+ (NEGATIVE) H 12/02/17 19:30 Urine Nitrate Negative (NEGATIVE) 12/02/17 19:30 Urine Bilirubin Negative (NEGATIVE) 12/02/17 19:30 Urine Urobilinogen Normal mg/dL (0.2-1.0) 12/02/17 19:30 Ur Leukocyte Esterase Trace Tania/uL (Negative) 12/02/17 19:30 Urine WBC (Auto) 1 /hpf (0-5) 12/02/17 19:30 Urine RBC (Auto) 3 /hpf (0-3) 12/02/17 19:30 Ur Squamous Epith Cells < 1 /hpf (0-5) 12/02/17 19:30 Blood Type B POSITIVE 12/02/17 18:54 Blood Type Confirm B POSITIVE 12/02/17 18:54 Antibody Screen Negative 12/02/17 18:54 - Hospital Course Hospital Course: 82-year-old female with a history of aortic aneurysm PVD hypertension hypothyroidism. Patient admitted with severe left leg pain of sudden onset. Upon arrival to the emergency room patient had a significant ischemic leg. Emergency vascular surgery consulted. Patient underwent angiogram, and angioplasty of the left leg. Patient is having palpable pulses noted. Company of pain Past medical history: Hypertension, hypothyroidism, reflux disease, aortic aneurysm. Surgical history Allergic to penicillin Home medications noted. On examination: Vital signs stable. Review of system noted from the chart. Comparing of some pain in the left leg. Back pain noted. Vital signs reviewed No neck vein distention noted Chest good air entry bilaterally, no wheezing or rales noted CVS regular heart sound, no murmur noted Abdomen soft, nontender. Extremities no pedal edema ETL DATABASE DEVELOPER alert awake oriented -3, no functional neurological deficit Labs reviewed Nonspecific on a heparin drip Assessment and recommendation: 82-year-old female with a history of aortic aneurysm, peripheral vascular disease, hypertension, hypothyroidism admitted with acute ischemic leg. Status post angiogram. Patient is currently on heparin. We'll continue the heparin drip. Aspirin Plavix. Patient also has abdominal aortic aneurysm large. Currently pending planning for surgical intervention. Will follow the patient Course in the hospital: Patient was initially admitted with acute thrombosis of the left femoral artery. She underwent a left femoral embolectomy, and angiogram on 12/02/2017. Patient was initially admitted to the intensive care unit. Closely monitored. The receiving intravenous heparin for anticoagulation. During the stay in the hospital the patient did not have any complications. The pain is improving. Patient had some leg pain, but improving. Dopplerable pulse noted in both lower extremities. Patient also noted to have 6.3 cm intra-abdominal aortic aneurysm. Patient was seen by surgical team, and suggested to have a surgical intervention BEKA. Meanwhile cardiology valuation was called for cardiac risk analysis. Patient underwent a stress test, nonspecific. Patient is medically and the cartilage was cleared for the surgical intervention. Patient will be discharged home today, and she will follow-up as an outpatient with Dr. Del Rosario, and plan further surgical intervention in 1 month. Patient will be discharged home today. She will follow-up as an outpatient. Medications include Aspirin, lorazepam, Plavix, Colace, valsartan hydrochlorothiazide, amlodipine. Acute thrombosis of the left femoral artery, status post thrombolysis. Abdominal aortic aneurysm. Hypertension, atherosclerotic heart disease. Peripheral vascular disease. Discharge Exam - Head Exam Head Exam: ATRAUMATIC Discharge Plan - Discharge Medications Prescriptions: LORazepam [Ativan] 0.5 mg PO Q12H PRN #15 tab PRN Reason: Anxiety Multivit-Min/Iron/Folic/Lutein [Centrum Silver Women Tablet] 1 each PO DAILY # 30 tablet Docusate [Colace] 100 mg PO BID #60 cap Potassium Chloride [K-Dur 20 mEq ER Tab] 20 meq PO ONCE #3 tab Levothyroxine 0.25 mcg PO DAILY #30 Norvasc 5 mg PO DAILY #30 Omeprazole 20 mg PO ACB #30 Clopidogrel [Plavix] 75 mg PO DAILY #30 tab Valsartan and Hydrochlorothiazide 12.5 mg-320 12.5 - 320 mg PO DAILY #30 - Follow Up Plan Condition: SERIOUS Disposition: HOME/ ROUTINE Instructions: Peripheral Vascular (Arterial) Disease (DC), Amlodipine, Clopidogrel, Docusate, Levothyroxine, Lorazepam, Omeprazole, Potassium Chloride , Valsartan and Hydrochlorothiazide, Vitamins (Multiple/Oral) Additional Instructions: - SEGUIMIENTO CON EL DR. MERCADO O DR. REARDON EN LA OFICINA EN EL PLAZO DE 5- 7 MAJOR --- LLAME A LA OFICINA EL LUNES PARA HACER HYDE ALANNAH. - SEGUIMIENTO CON EL DR. DEL ROSARIO EN LA OFICINA LA PRXIMA SEMANA --- LLAME A LA OFICINA EL LUNES PARA PROGRAMAR JOSSELIN ALANNAH. ASEGRESE DE JIM EL DR. DEL ROSARIO PARA EL VIER, . - DALILA HYDE VISITA CON EL DR. DEL ROSARIO, VA A DISCUTIR CON USTED LA CIRUGA NECESARIA PARA REPARAR HYDE ARTERIA ABDOMINAL. TAMBIN DISCUTIR CONTIGO CUANDO DEBES TENER LA CIRUGIA. - SEGUIMIENTO CON EL DR. KEITH (CARDILOGO) EN LA OFICINA EN 2 SEMANAS --- LLAME A LA OFICINA EL LUNES PARA HACER HYDE ALANNAH. -CONTINUE LOS MEDICAMENTOS DE HYDE CASA BERE HABITUALMENTE. LAS RECETAS DE RECARGA SE BOTELLO ENVIADO A HYDE FARMACIA - RECOGER ANTES DE SALIR DE HYDE MEDICINA. -NUEVAS PRESCRIPCIONES INCLUYEN: 1) PLAVIX (DILUYENTE DE MEGA Y PREVIENE EL CRECIMIENTO DEL COLESTEROL EN LOS RECIPIENTES DE MEGA) --- 75 MG (NOEMY 1 TABLETA) POR LA BOCA JOSSELIN VEZ AL DA ( NOEMY CADA DA CON HYDE ASPIRINA). 2) COLACE (DESCALZADOR DE TABURETES) 100 MG (NOEMY 1 CPSULA) POR LA BOCA DOS VECES AL DA --- DEJE DE NOEMY SI TIENE DIARREA. -IT ES MUY IMPORTANTE QUE ADMINISTRE HYDE ESTREIMIENTO DEBIDO A HYDE ANEURISMO ARTERIAL --- NO SE APRIETE CUANDO VAYA A EL CUARTO DE EDDIE. -SI TIENE ALGUNA OTRA PREGUNTA O PREOCUPACIN, PNGASE EN CONTACTO CON EL DR. TREVOR TREVINO -FOLLOW UP WITH DR. MERCADO OR DR. REARDON IN THE OFFICE WITHIN 5-7 DAYS--- CALL THE OFFICE ON SUNDAY TO MAKE YOUR APPOINTMENT. -FOLLOW UP WITH DR. DEL ROSARIO IN THE OFFICE NEXT WEEK---CALL THE OFFICE ON SUNDAY TO SCHEDULE AN APPOINTMENT. MAKE SURE YOU SEE DR. DEL ROSARIO BY DECEMBER 14. -DURING YOUR VISIT WITH DR. DEL ROSARIO, HE WILL DISCUSS WITH YOU THE SURGERY NEEDED TO REPAIR YOUR ABDOMINAL ARTERY. HE WILL ALSO DISCUSS WITH YOU WHEN YOU SHOULD HAVE THE SURGERY. -FOLLOW UP WITH DR. KEITH (GEM CARVER) IN THE OFFICE IN 2 WEEKS---CALL THE OFFICE ON SUNDAY TO MAKE YOUR APPOINTMENT. -CONTINUE YOUR HOME MEDICATIONS USUAL. REFILL PRESCRIPTIONS HAVE BEEN SENT TO YOUR PHARMACY--PLEASE OCTAVE BOARD RACKER BEFORE YOU RUN OUT OF YOUR MEDICINE. -NEW PRESCRIPTIONS INCLUDE: 1) PLAVIX (BLOOD THINNER AND PREVENTS CHOLESTEROL BUILD UP IN BLOOD VESSELS)--- 75 MG (TAKE 1 TABLET) BY MOUTH ONCE A DAY (TAKE EVERY DAY WITH YOUR ASPIRIN). 2) COLACE (STOOL SOFTENER) 100 MG (TAKE 1 CAPSULE) BY MOUTH TWO TIMES A DAY--- STOP TAKING IF YOU HAVE DIARRHEA. 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 -IF YOU HAVE ANY FURTHER QUESTIONS OR CONCERNS, CONTACT DR. MERCADO'S OFFICE Referrals: Celio Keith MD [Staff Provider] - Juancarlos Del Rosario Jr., MD [Staff Provider] - Marc Mercado MD [Staff Provider] -
--- NOTE | 2017-12-08 16:55 | CARD ---
APPROVED REPORT Protocol: LEXISCAN Test Type: LEXISCAN STRESS Test Indications: PRE OP CARDIAC Target HR: 136 bpm Resting ECG: normal Resting Heart Rate: 93 bpm Resting Blood Pressure: 132/78mmHg submaximum (85%): 116 bpm TEST SUMMARY PREINFSNHYPERV.43:[id number]/78.3. INFUSIONDOSE 100:300.00.01.0100/.4. [id number]/78.4. PROCEDURE Pharmacologic stress testing was performed using 0.4mg per 5ml of regadenoson given intravenously over 7-10 seconds. POST EXERCISE Reason for Termination: Protocol Completed Target HR: No Max HR: 100 bpm 92% of Maximum Predicted HR: 136 bpm Exercise duration: 00:30 min:sec, 0 Stage Exercise capacity: 1.0METs Max Blood Pressure: 132/78mmHg Blood Pressure response to exercise: normal resting BP - appropriate response Heart Rate response to exercise: appropriate Chest Pain: No, none Angina index: 0 Arrhythmia: Yes, ventricular premature beats-isolated ST Change: No, none Deviation: 0 mm INTERPRETATION Stress EKG Conclusion: Nuclear reportv to follow EXAM: Myocardial Perfusion REST/STRESS Imaging Protocol The imaging protocol used to acquire images was Rest Tc-99m/stress Tc-99m 2 days Rest Spect myocardial perfusion imaging was performed in supine position 40 minutes following the injection of 32.3 mCi of Tc-99 Myoview. Gated Stress Spect was performed 41 minutes after intravenous 32.7 mCi Tc-99 Myoview injection. The images were gated to evaluate regional wall motion and calculate ventricular ejection fraction.Images were reconstructed using backfilter projection method in short horizontal and verticle long axis. Spect slices were generated. RESTING DATA EDV47.14emFG5.60L/min ESV6.00mlMyocardial Mass88.00g Av. Heart Dpxc924.00bpm EF87.00% STRESS DATA EDV45.23jrDS0.20L/min ESV5.00mlMyocardial Mass85.00g EF89.00% Regional WT score at stress:0.00 Regional WM score at stress:0.00 Summed WT score at stress:1.00 Av. Heart Rate82.00bpmSummed WM score at stress:0.00 LV Perf. Quant 17 Seg. SSS1.00 17 Seg. SRS0.00 17 Seg. SDS1.00 Stress Defect Extent (% LAD)0.00Rest Defect Extent (% LAD)0.00Rev. Defect Extent (% LAD)0.00 Stress Defect Extent (% LCX)13.80Rest Defect Extent (% LCX)0.00Rev. Defect Extent (% LCX)0.00 Stress Defect Extent (% RCA)0.00Rest Defect Extent (% RCA)0.00Rev. Defect Extent (% RCA)0.00 Stress Defect Extent (% JASMYNE)2.40Rest Defect Extent (% JASMYNE)0.00Rev. Defect Extent (% JASMYNE)0.00 Other Information Quality:Good IMPRESSION Normal Myocardial Perfusion exercise stress study Left Ventricle LV Function:Left ventricle systolic function is normal. The Ejection Fraction is >70%. Metabolism/Perfusion There are no perfusion/metabolism defects. Conclusion 1. Normal Lexiscan Nuclear stress test. Normal EF.
== END 2017-12-07 19:58 | disposition home or self-care (01) | DRG 272 ==
LOC: C.ER 16:14 → C.9E 17:51 → C.9I 20:07 → C.5S 12-06 17:44
PROVIDERS: ADMIT Internal Medicine; ATTEND Internal Medicine
PROC: 047L3ZZ Dilation of Left Femoral Artery, Percutaneous Approach (ICD-10-PCS; 2017-12-02)
PROC: B41GYZZ Fluoroscopy of Left Lower Extremity Arteries using Other Contrast (ICD-10-PCS; 2017-12-02)
PROC: 04CL3ZZ Extirpation of Matter from Left Femoral Artery, Percutaneous Approach (ICD-10-PCS; principal; 2017-12-02 20:00)
DX: I74.3 Embolism and thrombosis of arteries of the lower extremities (principal); I48.91 Unspecified atrial fibrillation; E03.9 Hypothyroidism, unspecified; F41.9 Anxiety disorder, unspecified; I10 Essential (primary) hypertension; I71.4 Abdominal aortic aneurysm, without rupture; K21.9 Gastro-esophageal reflux disease without esophagitis; Z88.0 Allergy status to penicillin; E78.00 Pure hypercholesterolemia, unspecified

== ENCOUNTER 2018-01-07 07:45 | Inpatient (IN) | payer MEDICARE, MEDICAID ==
[2018-01-01 11:38] VITALS: BMI 27.3
[2018-01-14] MEDS ORDERED: Iodixanol 320 MG/ML 200 ML BOTTLE IV ONE (08:20)
[2018-01-14] MEDS ORDERED: HEPARIN-NS 5,000 UNITS/500 ML 10,000 UNIT/1,000 ML BAG IV ONE ×2 (08:20→11:15)
[2018-01-14] MEDS ORDERED: Vancomycin 1 gm/D5W 200 ml 1 GM/200 ML BAG IVPB ONE (09:37)
[2018-01-14] MEDS ORDERED: Phenylephrine 10 mg/ml Inj ONE (09:44)
[2018-01-14] MEDS ORDERED: ePHEDrine 50 mg/ml Inj ONE (09:44)
[2018-01-14] MEDS ORDERED: Remifentanil 1 mg/3 ml Vial IV ONE (09:49)
[2018-01-14] MEDS ORDERED: Propofol 10 mg/ml 1,000 MG/100 ML VIAL ONE (09:49)
[2018-01-14] MEDS ORDERED: Lactated Ringer's 1,000 ML IV ONE ×2 (09:50→11:15)
[2018-01-14] MEDS ORDERED: Midazolam 2 MG/2 ML VIAL ONE (09:57)
[2018-01-14] MEDS ORDERED: Nitroglycerin 50mg in D5W 50 MG/250 ML BOTTLE IV ONE (10:15)
[2018-01-14] MEDS ORDERED: Bupivacaine 0.25% Inj(30mL) IJ ONE ×2 (10:48→10:51)
[2018-01-14] MEDS ORDERED: Sodium Chloride 0.9% 500 ML IV ONE (11:05)
[2018-01-14] MEDS ORDERED: Neostigmine Methylsulfate 3mg/3ml Syringe IV ONE (12:32)
[2018-01-14] MEDS ORDERED: Labetalol 25mg/5ml Syringe ONE (12:50)
--- NOTE | 2018-01-14 13:04 | PCM.SURG1 ---
Surgeon's Initial Post Op Note - Surgeon's Notes Surgeon: Dr. [facility] Director: Dr. Zhong, PGY-3 Type of Anesthesia: General Endo, Local Anesthesia Administered By: Dr. Lepe Pre-Operative Diagnosis: Abdominal Aortic Aneurysm Operative Findings: See operative report Post-Operative Diagnosis: Same Operation Performed: Percutaneous Endovascular Aortic Aneurysm Repair (PEVAAR) with aortic cuff & b/l common iliac extensions Specimen/Specimens Removed: none Estimated Blood Loss: EBL {In ML}: 300 Blood Products Given: PRBC (1 unit ) Drains Used: No Drains Post-Op Condition: Good Date of Surgery/Procedure: 01/14/18 Time of Surgery/Procedure: 13:05
[2018-01-14] MEDS ORDERED: HYDROmorphone 0.5 mg/0.5 ml ISec IVP PRN (13:06)
[2018-01-14 13:41] LABS: MEAN CELL VOLUME 76.5 fL (81.0-99.0); MEAN CORPUSCULAR HGB CONC 32.7 g/dL (33.0-37.0); MEAN PLATELET VOLUME 7.1 fL (7.2-11.7); RBC 3.2 Mil/uL (3.80-5.20); RED CELL DISTRIBUTION WIDTH 16.2 % (11.5-14.5)
[2018-01-14 13:55] LABS: BLOOD UREA NITROGEN 17 mg/dL (7-17); CALCIUM 8.1 mg/dl (8.6-10.4); GFR AFRICAN-AMERICAN > 60; GFR NON-AFRICAN AMERICAN > 60
--- NOTE | 2018-01-14 14:05 | CP.PCM.CON ---
<Qi Andersen - Last Filed: 01/14/18 15:20> History of Present Illness - History of Present Illness History of Present Illness: ICU consult note: Patient is a 82 year old female with past medical history of HTN, hypothyroidism, Refulx disease, PVD, AAA presented to [facility] for AAA repair. Patient underwent Percutaneous Endovascular Aortic Aneurysm Repair ( PEVAAR) with aortic cuff & b/l common iliac extensions today with Dr Buckner. She receieved 1 unit PRBCs in the OR. Patient admitted to the ICU for closer monitoring. Patient currently states having pain in her knees. Offers no other complaints. Denies headaches, dizziness, N/V, chest pain, palpitations, sob, abdominal pain, urinary symptoms. PMD: Dr Jimenez Allergies: Penicillin, Multiple food allergies Medical History: HTN, Hypothyroidism, Reflux disease, AAA, Peripeheral vascular disease Medications: Norvasc 5mg PO daily, Plavix 75mg PO daily, ASA 81mg, Valsartan/ HCTZ 12.5/320mg PO daily, Omeprazole 20mg PO daily, Levothyroxine 0.25mcg daily , Colace 100mg PO BID Surgical History: , Left Femoral Embolectomy intraoperative arteriogram w/ patch closure Social History: Denies Past Patient History - Past Medical History & Family History Past Medical History?: Yes - Past Social History Smoking Status: Never Smoked - CARDIAC Hx Cardiac Disorders: Yes Hx Circulatory Problems: Yes Hx Hypertension: Yes Other/Comment: AAA - PULMONARY Hx Respiratory Disorders: No - NEUROLOGICAL Hx Neurological Disorder: No - HEENT Hx HEENT Problems: No - RENAL Hx Chronic Kidney Disease: No - ENDOCRINE/METABOLIC Hx Endocrine Disorders: Yes Hx Hypothyroidism: Yes - HEMATOLOGICAL/ONCOLOGICAL Hx Blood Disorders: No - INTEGUMENTARY Hx Dermatological Problems: No - MUSCULOSKELETAL/RHEUMATOLOGICAL Hx Musculoskeletal Disorders: Yes Hx Falls: Yes Hx Osteoarthritis: Yes - GASTROINTESTINAL Hx Gastrointestinal Disorders: Yes Hx Gastritis: Yes - GENITOURINARY/GYNECOLOGICAL Hx Genitourinary Disorders: No - PSYCHIATRIC Hx Psychophysiologic Disorder: Yes Hx Anxiety: Yes Hx Substance Use: No - SURGICAL HISTORY Hx Surgeries: Yes Hx Angiogram: Yes - ANESTHESIA Hx Anesthesia: Yes Hx Anesthesia Reactions: No Hx Malignant Hyperthermia: No Has any member of the family had a problem w/ anesthesia?: No Meds Allergies/Adverse Reactions: Allergies Allergy/AdvReac Type Severity Reaction Status Date / Time Penicillins Allergy COUGH Verified 12/02/17 16:36 cabbage Allergy Mild RASH Uncoded 12/03/17 08:49 carrots Allergy Mild RASH Uncoded 12/03/17 08:49 potato Allergy Mild RASH Uncoded 12/03/17 08:49 apple Allergy RASH Uncoded 12/03/17 08:49 seafood Allergy RASH Uncoded 12/03/17 08:49 - Medications Medications: Current Medications Amlodipine Besylate (Norvasc) 5 mg PO DAILY [facility] Aspirin (Aspirin Chewable) 81 mg PO DAILY [facility] Clopidogrel Bisulfate (Plavix) 75 mg PO DAILY [facility] Docusate Sodium (Colace) 100 mg PO BID [facility] Famotidine (Pepcid) 20 mg PO DAILY [facility] Hydrochlorothiazide (Microzide) 12.5 mg PO DAILY [facility] Hydromorphone HCl (Dilaudid) 0.5 mg IVP Q5M PRN PRN Reason: Pain, severe (8-10) Stop: 01/14/18 15:06 Last Admin: 01/14/18 13:17 Dose: 0.5 mg Levothyroxine Sodium (Synthroid) 0.25 mcg PO 0630 YARITZA Lorazepam (Ativan) 0.5 mg PO Q12H PRN PRN Reason: Anxiety Losartan Potassium (Cozaar) 100 mg PO DAILY [facility] Multivitamins (Hexavitamin) 1 tab PO DAILY [facility] Ondansetron HCl (Zofran Inj) 4 mg IVP ONCE PRN PRN Reason: Nausea/Vomiting Stop: 01/14/18 15:07 Oxycodone/Acetaminophen (Percocet 5/325 Mg Tab) 1 tab PO Q4H PRN PRN Reason: Pain, moderate (4-7) Stop: 01/17/18 13:13 Physical Exam - Constitutional Appears: Well, Non-toxic - Head Exam Head Exam: ATRAUMATIC, NORMAL INSPECTION, NORMOCEPHALIC - Eye Exam Eye Exam: EOMI, Normal appearance - ENT Exam ENT Exam: Mucous Membranes Moist - Neck Exam Neck exam: Positive for: Full Rom - Respiratory Exam Respiratory Exam: Clear to Auscultation Bilateral, NORMAL BREATHING PATTERN. absent: Rales, Rhonchi, Wheezes - Cardiovascular Exam Cardiovascular Exam: REGULAR RHYTHM, +S1, +S2. absent: Systolic Murmur - GI/Abdominal Exam GI & Abdominal Exam: Normal Bowel Sounds, Soft Additional comments: Left and right inguinal dressings c/d/i - Extremities Exam Extremities exam: Positive for: normal inspection - Back Exam Back exam: NORMAL INSPECTION - Neurological Exam Neurological exam: Alert, CN II-XII Intact, Oriented x3 - Psychiatric Exam Psychiatric exam: Normal Affect, Normal Mood - Skin Skin Exam: Dry, Normal Color, Warm Results - Vital Signs Recent Vital Signs: Last Vital Signs Temp 97.2 F L 01/14/18 13:05 Pulse 69 01/14/18 13:45 Resp 16 01/14/18 13:45 BP 133/68 01/14/18 13:45 Pulse Ox 100 01/14/18 13:45 - Labs Result Diagrams: 01/14/18 13:33 01/14/18 13:33 Labs: Laboratory Results - last 24 hr 01/14/18 01/14/18 01/14/18 09:12 13:33 13:33 WBC 6.0 RBC 3.20 L Hgb 8.0 L Hct 24.5 L MCV 76.5 L MCH 25.0 L MCHC 32.7 L RDW 16.2 H Plt Count 189 MPV 7.1 L Sodium 139 Potassium 3.5 L Chloride 105 Carbon Dioxide 26 Anion Gap 12 BUN 17 Creatinine 0.8 Est GFR ( Amer) > 60 Est GFR (Non-Af Amer) > 60 Random Glucose 98 Calcium 8.1 L Blood Type B POSITIVE Antibody Screen Negative Assessment & Plan - Assessment and Plan (Free Text) Assessment: Patient is a 82 year old female with past medical history of HTN, PVD, AAA presented to [facility] for AAA repair. Patient is S/P Percutaneous Endovascular Aortic Aneurysm Repair (PEVAAR) with aortic cuff & b/l common iliac extensions today with Dr Younger. Admitted to the ICU for closer monitoring. Plan: -Stable, afebrile -S/P 1 unit PRBCs -Monitor serial CBC, CMPs -Potassium 3.5, will replete -NS @ 100cc/hr -Continue regular diet -Home medications restarted -Zofran prn nausea -Pain control as needed -Neurovascular checks -Strict I/Os -Will continue to monitor closely in the ICU -Plan discussed with Dr Jimenez <Marc Jimenez - Last Filed: 01/14/18 18:55> Meds - Medications Medications: Current Medications Amlodipine Besylate (Norvasc) 5 mg PO DAILY [facility] Aspirin (Aspirin Chewable) 81 mg PO DAILY [facility] Clopidogrel Bisulfate (Plavix) 75 mg PO DAILY [facility] Docusate Sodium (Colace) 100 mg PO BID [facility] Famotidine (Pepcid) 20 mg PO DAILY [facility] Hydrochlorothiazide (Microzide) 12.5 mg PO DAILY [facility] Sodium Chloride (Sodium Chloride 0.9%) 1,000 mls @ 100 mls/hr IV .Q10H YARITZA Last Admin: 01/14/18 15:14 Dose: 100 mls/hr Levothyroxine Sodium (Synthroid) 0.25 mcg PO 0630 YARITZA Lorazepam (Ativan) 0.5 mg PO Q12H PRN PRN Reason: Anxiety Losartan Potassium (Cozaar) 100 mg PO DAILY [facility] Multivitamins (Hexavitamin) 1 tab PO DAILY [facility] Oxycodone/Acetaminophen (Percocet 5/325 Mg Tab) 1 tab PO Q4H PRN PRN Reason: Pain, moderate (4-7) Stop: 01/17/18 13:13 Last Admin: 01/14/18 15:14 Dose: 1 tab Results - Vital Signs Recent Vital Signs: Last Vital Signs Temp 98 F 01/14/18 18:47 Pulse 72 01/14/18 18:47 Resp 20 01/14/18 18:47 BP 139/61 01/14/18 18:47 Pulse Ox 100 01/14/18 18:00 - Labs Result Diagrams: 01/14/18 13:33 01/14/18 13:33 Labs: Laboratory Results - last 24 hr 01/14/18 01/14/18 01/14/18 09:12 13:33 13:33 WBC 6.0 RBC 3.20 L Hgb 8.0 L Hct 24.5 L MCV 76.5 L MCH 25.0 L MCHC 32.7 L RDW 16.2 H Plt Count 189 MPV 7.1 L Sodium 139 Potassium 3.5 L Chloride 105 Carbon Dioxide 26 Anion Gap 12 BUN 17 Creatinine 0.8 Est GFR ( Amer) > 60 Est GFR (Non-Af Amer) > 60 Random Glucose 98 Calcium 8.1 L Blood Type B POSITIVE Antibody Screen Negative Attending/Attestation - Attestation I have personally seen and examined this patient.: Yes I have fully participated in the care of the patient.: Yes I have reviewed all pertinent clinical information: Yes Notes (Text): 01/14/18 18:54 pt is seen and examined doing well post op will f/u
[2018-01-14] MEDS: Oxycodone/Acetaminophen 5/325 mg Tab PO PRN ×2 (15:14→22:03)
[2018-01-14] MEDS: Sodium Chloride 0.9% 1,000 ML IV SCH (15:14)
[2018-01-14] MEDS ORDERED: Potassium Chloride 20 mEq ER Tab PO ONE ×2 (15:18→16:30)
--- NOTE | 2018-01-14 18:33 | RAD ---
PROCEDURE: Intraoperative Fluoroscopy. HISTORY: AAA FINDINGS: Fluoroscopic assistance was provided for abdominal aortic aneurysm/stent graft. Please refer to the operative report from BERONICA Leo.
--- NOTE | 2018-01-14 22:35 | OP ---
PROCEDURE DATE: 01/14/2018 PREOPERATIVE DIAGNOSIS: Abdominal aortic aneurysm. POSTOPERATIVE DIAGNOSIS: Abdominal aortic aneurysm. PROCEDURE CARRIED: Percutaneous endovascular aneurysm repair (PEVAR). SURGEON: Juancarlos Buckner Jr., MD ASSISTANTS: Dr. Efren Gupta, and Dr. Torrez. TYPE OF ANESTHESIA: Local subsequently changed to general anesthesia. INDICATIONS: An 82 year old woman initially presented with embolic events to the left leg, now is for elective repair of the abdominal aortic aneurysm. OPERATIVE FINDINGS: Initially, we had difficulty deploying the Perclose device in the left groin. We were only able to predeploy one device. Initial puncture of the left groin which was around the scar was initially complicated by some extravasation at this point which required inflation of a balloon at the right location. This eventually corrected itself with pressure. Blood loss for the procedure was over 300 mL. DESCRIPTION OF PROCEDURE: The patient was given local anesthesia. Using ultrasound guidance and micropuncture technique, the right femoral and the left common femoral vein arteries were punctured. Guidewire was advanced centrally. There were problems mentioned initially with the access which I described and were corrected. After this had been done, we then punctured, we advanced guidewires upto the suprarenal aorta. We then exchanged these for Amplatz wires. We then deployed after replacing the 12 [place] sheath from the left side first and then the main body from the right side. We then deployed the graft which was a 31 x 14 x 5 mm by 13 cm length. We then had placed an navy senior officer on the right side which was 14 cm in length and 23 and then on the left side we placed two extensions. As well as an aortic extension of 32 mm to the proximal cuff, this is because it came down a little bit, while we had no signs of an endoleak, it was necessary to replace. So after the we eventually cannulated the contralateral limb, placed the guidewire up we deployed. The secondary limbs all the way down to the origin of the internal iliac artery on the left side and this was deployed successfully. We then in the right side deployed these successfully and then used a coated type balloon to inflate these on both sides. Under final picture, there was no evidence of any endoleak type 1, type 2, etc. However, the proximal portion of the graft was closed to the aneurysm itself, so we deployed an extension cuff up to the level of the renal arteries which are much better results. The procedure was then terminated. The Perclose device was deployed on the left groin and then the Perclose device deployed on the right side and we had a good seal. Perfusion to the legs was adequate, so the operation carried out was endovascular repair of abdominal aortic aneurysm with two left extensions, one right extension, and one proximal aortic cuff extension. Juancarlos Buckner Jr., MD cc: Dr. Óscar Díaz. MD Marc Abreu MD
[2018-01-15] MEDS: Sodium Chloride 0.9% 1,000 ML IV SCH (05:00)
[2018-01-15 06:14] LABS: HEMOGLOBIN 9.1 g/dL (11.0-16.0); MEAN CELL VOLUME 78.4 fL (81.0-99.0); MEAN CORPUSCULAR HEMOGLOBIN 26.6 pg (27.0-31.0); MEAN CORPUSCULAR HGB CONC 33.9 g/dL (33.0-37.0); MEAN PLATELET VOLUME 7.2 fL (7.2-11.7); RBC 3.43 Mil/uL (3.80-5.20); RED CELL DISTRIBUTION WIDTH 16.7 % (11.5-14.5)
[2018-01-15 06:26] LABS: CALCIUM 8.2 mg/dl (8.6-10.4)
[2018-01-15] MEDS ORDERED: Levothyroxine 25 MCG TAB PO SCH ×2 (06:30)
--- NOTE | 2018-01-15 06:49 | CP.PCM.CON ---
History of Present Illness - History of Present Illness History of Present Illness: Patient s/p Endovascular AAA repair No cardiac events Denies chest pain and dyspnea Past Patient History - Past Medical History & Family History Past Medical History?: Yes - Past Social History Smoking Status: Never Smoked - CARDIAC Hx Cardiac Disorders: Yes Hx Circulatory Problems: Yes Hx Hypertension: Yes Other/Comment: AAA - PULMONARY Hx Respiratory Disorders: No - NEUROLOGICAL Hx Neurological Disorder: No - HEENT Hx HEENT Problems: No - RENAL Hx Chronic Kidney Disease: No - ENDOCRINE/METABOLIC Hx Endocrine Disorders: Yes Hx Hypothyroidism: Yes - HEMATOLOGICAL/ONCOLOGICAL Hx Blood Disorders: No - INTEGUMENTARY Hx Dermatological Problems: No - MUSCULOSKELETAL/RHEUMATOLOGICAL Hx Falls: No - GASTROINTESTINAL Hx Gastrointestinal Disorders: Yes Hx Gastritis: Yes - GENITOURINARY/GYNECOLOGICAL Hx Genitourinary Disorders: No - PSYCHIATRIC Hx Substance Use: No - SURGICAL HISTORY Hx Surgeries: Yes Hx Angiogram: Yes - ANESTHESIA Hx Anesthesia: Yes Hx Anesthesia Reactions: No Hx Malignant Hyperthermia: No Has any member of the family had a problem w/ anesthesia?: No Meds Allergies/Adverse Reactions: Allergies Allergy/AdvReac Type Severity Reaction Status Date / Time Penicillins Allergy COUGH Verified 12/02/17 16:36 cabbage Allergy Mild RASH Uncoded 12/03/17 08:49 carrots Allergy Mild RASH Uncoded 12/03/17 08:49 potato Allergy Mild RASH Uncoded 12/03/17 08:49 apple Allergy RASH Uncoded 12/03/17 08:49 seafood Allergy RASH Uncoded 12/03/17 08:49 - Medications Medications: Current Medications Amlodipine Besylate (Norvasc) 5 mg PO DAILY [facility] Aspirin (Aspirin Chewable) 81 mg PO DAILY [facility] Clopidogrel Bisulfate (Plavix) 75 mg PO DAILY [facility] Docusate Sodium (Colace) 100 mg PO BID [facility] Last Admin: 01/14/18 19:47 Dose: 100 mg Famotidine (Pepcid) 20 mg PO DAILY [facility] Hydrochlorothiazide (Microzide) 12.5 mg PO DAILY [facility] Sodium Chloride (Sodium Chloride 0.9%) 1,000 mls @ 100 mls/hr IV .Q10H [facility] Last Admin: 01/15/18 05:00 Dose: 100 mls/hr Levothyroxine Sodium (Synthroid) 0.25 mcg PO 0630 [facility] Levothyroxine Sodium (Synthroid) 25 mcg PO DAILY@0630 [facility] Last Admin: 01/15/18 06:23 Dose: 25 mcg Lorazepam (Ativan) 0.5 mg PO Q12H PRN PRN Reason: Anxiety Losartan Potassium (Cozaar) 100 mg PO DAILY [facility] Multivitamins (Hexavitamin) 1 tab PO DAILY [facility] Oxycodone/Acetaminophen (Percocet 5/325 Mg Tab) 1 tab PO Q4H PRN PRN Reason: Pain, moderate (4-7) Stop: 01/17/18 13:13 Last Admin: 01/14/18 22:03 Dose: 1 tab Results - Vital Signs Recent Vital Signs: Last Vital Signs Temp 98 F 01/14/18 21:55 Pulse 67 01/15/18 01:16 Resp 21 01/15/18 01:16 BP 115/49 L 01/15/18 01:16 Pulse Ox 99 01/15/18 01:16 - Labs Result Diagrams: 01/15/18 06:11 01/15/18 06:11 Labs: Laboratory Results - last 24 hr 01/14/18 01/14/18 01/14/18 09:12 13:33 13:33 WBC 6.0 RBC 3.20 L Hgb 8.0 L Hct 24.5 L MCV 76.5 L MCH 25.0 L MCHC 32.7 L RDW 16.2 H Plt Count 189 MPV 7.1 L Sodium 139 Potassium 3.5 L Chloride 105 Carbon Dioxide 26 Anion Gap 12 BUN 17 Creatinine 0.8 Est GFR ( Amer) > 60 Est GFR (Non-Af Amer) > 60 Random Glucose 98 Calcium 8.1 L Blood Type B POSITIVE Antibody Screen Negative 01/15/18 01/15/18 06:11 06:11 WBC 8.0 RBC 3.43 L Hgb 9.1 L Hct 26.9 L MCV 78.4 L MCH 26.6 L MCHC 33.9 RDW 16.7 H Plt Count 151 MPV 7.2 Sodium 139 Potassium 4.2 Chloride 106 Carbon Dioxide 23 Anion Gap 14 BUN 16 Creatinine 1.1 Est GFR ( Amer) 57 Est GFR (Non-Af Amer) 47 Random Glucose 103 Calcium 8.2 L Blood Type Antibody Screen
[2018-01-15] MEDS ORDERED: HYDROCHLOROTHIAZIDE PO SCH (10:00)
[2018-01-15] MEDS ORDERED: VALSARTAN PO SCH (10:00)
[2018-01-15] MEDS ORDERED: Multiple Vitamins Tab PO SCH (10:00)
[2018-01-15 10:25] VITALS: PULSE 95; RESP 16; O2SAT 100
--- NOTE | 2018-01-15 11:55 | CP.PCM.PN ---
Subjective - Date & Time of Evaluation Date of Evaluation: 01/15/18 Time of Evaluation: 09:35 - Subjective Subjective: PGY2 Cardiology Progress Note for Dr. Keith Patient seen and examined at bedside. No acute distress. She is s/p Endovascular AAA repair on 01/14/18. Resting comfortably. Denies chest pain, SOB , or LE edema. She reports decreased appetite since the procedure. 12-point review of systems is otherwise negative without any additional acute complaints. Objective - Vital Signs/Intake and Output Vital Signs (last 24 hours): Temp Pulse Resp BP Pulse Ox 98.0 F 95 H 16 126/55 L 100 01/15/18 08:00 01/15/18 10:07 01/15/18 09:00 01/15/18 05:39 01/15/18 09:00 Intake and Output: 01/15/18 01/15/18 06:59 18:59 Intake Total 1445 Output Total 615 Balance 830 - Medications Medications: Current Medications Amlodipine Besylate (Norvasc) 5 mg PO DAILY [facility] Last Admin: 01/15/18 10:59 Dose: 5 mg Aspirin (Aspirin Chewable) 81 mg PO DAILY [facility] Last Admin: 01/15/18 10:58 Dose: 81 mg Clopidogrel Bisulfate (Plavix) 75 mg PO DAILY [facility] Last Admin: 01/15/18 10:59 Dose: 75 mg Docusate Sodium (Colace) 100 mg PO BID [facility] Last Admin: 01/15/18 10:59 Dose: 100 mg Famotidine (Pepcid) 20 mg PO DAILY [facility] Last Admin: 01/15/18 10:59 Dose: 20 mg Hydrochlorothiazide (Microzide) 12.5 mg PO DAILY [facility] Last Admin: 01/15/18 10:59 Dose: 12.5 mg Sodium Chloride (Sodium Chloride 0.9%) 1,000 mls @ 100 mls/hr IV .Q10H [facility] Last Admin: 01/15/18 05:00 Dose: 100 mls/hr Levothyroxine Sodium (Synthroid) 25 mcg PO DAILY@0630 [facility] Last Admin: 01/15/18 06:23 Dose: 25 mcg Lorazepam (Ativan) 0.5 mg PO Q12H PRN PRN Reason: Anxiety Losartan Potassium (Cozaar) 100 mg PO DAILY [facility] Last Admin: 01/15/18 10:58 Dose: 100 mg Multivitamins (Hexavitamin) 1 tab PO DAILY [facility] Last Admin: 01/15/18 10:58 Dose: 1 tab Oxycodone/Acetaminophen (Percocet 5/325 Mg Tab) 1 tab PO Q4H PRN PRN Reason: Pain, moderate (4-7) Stop: 01/17/18 13:13 Last Admin: 01/14/18 22:03 Dose: 1 tab - Labs Labs: 01/15/18 06:11 01/15/18 06:11 - Additional Findings Additional findings: - Constitutional Appears: Well, Non-toxic - Head Exam Head Exam: ATRAUMATIC, NORMAL INSPECTION, NORMOCEPHALIC - Eye Exam Eye Exam: EOMI, Normal appearance - ENT Exam ENT Exam: Mucous Membranes Moist - Neck Exam Neck exam: Positive for: Full Rom - Respiratory Exam Respiratory Exam: Clear to Auscultation Bilateral, NORMAL BREATHING PATTERN. absent: Rales, Rhonchi, Wheezes - Cardiovascular Exam Cardiovascular Exam: REGULAR RHYTHM, +S1, +S2. absent: Systolic Murmur - GI/Abdominal Exam GI & Abdominal Exam: Normal Bowel Sounds, Soft - Extremities Exam Extremities exam: Positive for: normal inspection - Back Exam Back exam: NORMAL INSPECTION - Neurological Exam Neurological exam: Alert, CN II-XII Intact, Oriented x3 - Psychiatric Exam Psychiatric exam: Normal Affect, Normal Mood - Skin Skin Exam: Dry, Normal Color, Warm Assessment and Plan - Assessment and Plan (Free Text) Assessment: Hypertension BP 126/55, continue to monitor Continue HCTZ 12.5mg PO qD Continue Losartan 100mg PO qD Continue Norvasc 5mg PO qD s/p Endovascular AAA Repair -Dr. Buckner on the case - Percutaneous Endovascular Aortic Aneurysm Repair (PEVAAR) with aortic cuff & b /l common iliac extensions -ASA 81mg PO qD Case Discussed with Dr. Sagar Martinez, PGY2
--- NOTE | 2018-01-15 12:07 | CP.PCM.DIS ---
Provider - Provider Date of Admission: 01/14/18 07:41 Attending physician: Juancarlos Buckner Jr, MD Time Spent in preparation of Discharge (in minutes): 5 Diagnosis - Discharge Diagnosis (1) Aortic aneurysm, abdominal Status: Acute Priority: High Hospital Course - Lab Results Lab Results: Most Recent Lab Values WBC 8.0 K/uL (4.8-10.8) 01/15/18 06:11 RBC 3.43 Mil/uL (3.80-5.20) L 01/15/18 06:11 Hgb 9.1 g/dL (11.0-16.0) L 01/15/18 06:11 Hct 26.9 % (34.0-47.0) L 01/15/18 06:11 MCV 78.4 fL (81.0-99.0) L 01/15/18 06:11 MCH 26.6 pg (27.0-31.0) L 01/15/18 06:11 MCHC 33.9 g/dL (33.0-37.0) 01/15/18 06:11 RDW 16.7 % (11.5-14.5) H 01/15/18 06:11 Plt Count 151 K/uL (130-400) 01/15/18 06:11 MPV 7.2 fL (7.2-11.7) 01/15/18 06:11 Sodium 139 mmol/L (132-148) 01/15/18 06:11 Potassium 4.2 mmol/L (3.6-5.2) 01/15/18 06:11 Chloride 106 mmol/L (98-107) 01/15/18 06:11 Carbon Dioxide 23 mmol/L (22-30) 01/15/18 06:11 Anion Gap 14 (10-20) 01/15/18 06:11 BUN 16 mg/dL (7-17) 01/15/18 06:11 Creatinine 1.1 mg/dL (0.7-1.2) 01/15/18 06:11 Est GFR ( Amer) 57 01/15/18 06:11 Est GFR (Non-Af Amer) 47 01/15/18 06:11 Random Glucose 103 mg/dL (65-105) 01/15/18 06:11 Calcium 8.2 mg/dl (8.6-10.4) L 01/15/18 06:11 Blood Type B POSITIVE 01/14/18 09:12 Antibody Screen Negative 01/14/18 09:12 - Hospital Course Hospital Course: 82F with PMHx of HTN, HLD, CAD, PVD, & Anxiety who presented for elective repair of AAA on 01/14/18. Pt underwent percutaneous EVAAR with b/l common iliac extensions. She tolerated the surgery well and was monitored in the ICU overnight. Pt doing well this morning. Will be DC home with outpt f/u. Discharge Exam - Head Exam Head Exam: ATRAUMATIC, NORMAL INSPECTION, NORMOCEPHALIC - Eye Exam Eye Exam: Normal appearance - Respiratory Exam Respiratory Exam: NORMAL BREATHING PATTERN - Cardiovascular Exam Cardiovascular Exam: RRR - GI/Abdominal Exam GI & Abdominal Exam: Soft. absent: Distended, Tenderness - Extremities Exam Additional comments: b/l groins with dressing C/D/I, Dopplerable DP/PT b/l LE - Skin Skin Exam: Dry, Warm Discharge Plan - Follow Up Plan Condition: GOOD Disposition: HOME/ ROUTINE
[2018-01-15 18:29] VITALS: BP 126/74; TEMP 98.7
--- NOTE | 2018-01-16 08:56 | CP.PCM.PN ---
Subjective - Date & Time of Evaluation Date of Evaluation: 01/15/18 Time of Evaluation: 06:00 - Subjective Subjective: pt with AAA repair doing well no chest pain denies nausea or vomiting will f/u as op Objective - Vital Signs/Intake and Output Vital Signs (last 24 hours): Temp Pulse Resp BP Pulse Ox 98.7 F 95 H 16 126/74 100 01/15/18 18:00 01/15/18 10:07 01/15/18 09:00 01/15/18 18:00 01/15/18 09:00 - Labs Labs: 01/15/18 06:11 01/15/18 06:11
== END 2018-01-15 18:27 | disposition home or self-care (01) | DRG 269 ==
LOC: C.9S 01-14 07:41 → C.9I 01-14 13:32
PROVIDERS: ADMIT Surgery Vascular Surgery; ATTEND Surgery Vascular Surgery
PROC: 30233N1 Transfusion of Nonautologous Red Blood Cells into Peripheral Vein, Percutaneous Approach (ICD-10-PCS; 2018-01-14)
PROC: 04V03DZ Restriction of Abdominal Aorta with Intraluminal Device, Percutaneous Approach (ICD-10-PCS; principal; 2018-01-14 09:30)
DX: I71.4 Abdominal aortic aneurysm, without rupture (principal); I73.9 Peripheral vascular disease, unspecified; E03.9 Hypothyroidism, unspecified; E78.5 Hyperlipidemia, unspecified; I10 Essential (primary) hypertension; I25.10 Atherosclerotic heart disease of native coronary artery without angina pectoris; K21.9 Gastro-esophageal reflux disease without esophagitis; M25.562 Pain in left knee; M25.561 Pain in right knee; Z79.82 Long term (current) use of aspirin; M19.90 Unspecified osteoarthritis, unspecified site

== ENCOUNTER 2019-01-12 18:33 | Observation (INO) | payer MEDICARE, MEDICAID ==
[2019-01-12 18:33] VITALS: BMI 27.3
--- NOTE | 2019-01-12 19:14 | C.PDOC ---
History Of Present Illness 83 y/o female PMH of anxiety, HTN, abdominal aortic aneurysm s/p repair, and arterial embolus, presents to the ED with complaints of left arm pain since yesterday. The pain began at the wrist, as a throbbing and sharp, shooting pain, onset around 9:00pm. She denies any fall or trauma. Pain radiates from the left wrist to her fingertips as well as to her elbow. This is a first time occurrence, patient notes she does sleep on that arm. Denies any rashes or skin changes to the area. Otherwise patient denies any fevers, chills, night sweats, chest pain, sob, abdominal pain, back pain, constipation, or diarrhea. Time Seen by Provider: 01/12/19 19:13 Chief Complaint (Nursing): Upper Extremity Problem/Injury History Per: Patient History/Exam Limitations: no limitations Onset/Duration Of Symptoms: Days (x 2) Current Symptoms Are (Timing): Still Present Quality: "Pain" Severity: Moderate Past Medical History Reviewed: Historical Data, Nursing Documentation, Vital Signs Vital Signs: Last Vital Signs Temp 98.7 F 01/12/19 18:35 Pulse 91 H 01/12/19 18:35 Resp 18 01/12/19 18:35 BP 160/72 H 01/12/19 18:35 Pulse Ox 97 01/12/19 18:35 - Medical History PMH: Anxiety, Cardiac Aneurysm (abdominal aortic aneurysm), Gastritis, HTN, Hypothyroidism Denies: Arthritis, Chronic Kidney Disease Other Surgeries: Angiogram, Repair of AAA - [facility] Procedures DILATION OF LEFT FEMORAL ARTERY, PERCUTANEOUS APPROACH (12/02/17) EXTIRPATION OF MATTER FROM L FEM ART, PERC APPROACH (12/02/17) FLUOROSCOPY OF L LOW EXTREM ART USING OTH CONTRAST (12/02/17) RESTRICTION OF ABD AORTA WITH INTRALUM DEV, PERC APPROACH (01/14/18) TRANSFUSE NONAUT RED BLOOD CELLS IN PERIPH VEIN, PERC (01/14/18) Family History: States: No Known Family Hx - Social History Hx Tobacco Use: No Hx Alcohol Use: No Hx Substance Use: No - Immunization History Hx Tetanus Toxoid Vaccination: No Hx Influenza Vaccination: Yes Hx Pneumococcal Vaccination: No Review Of Systems Constitutional: Negative for: Fever, Chills, Weakness Eyes: Negative for: Vision Change Cardiovascular: Negative for: Chest Pain, Palpitations Respiratory: Negative for: Shortness of Breath Gastrointestinal: Negative for: Vomiting, Abdominal Pain, Diarrhea Musculoskeletal: Positive for: Neck Pain (left), Arm Pain (left). Negative for: Back Pain Skin: Negative for: Rash, Lesions Neurological: Negative for: Weakness, Numbness, Headache Physical Exam - Physical Exam Appears: Non-toxic, No Acute Distress Skin: Warm, Dry Head: Normacephalic Eye(s): bilateral: Normal Inspection, PERRL, EOMI Oral Mucosa: Moist Neck: Trachea Midline, No Midline Cervical Tenderness, Supple, Other (Left lateral point tenderness to neck; No meningeal signs) Chest: Symmetrical Cardiovascular: Rhythm Regular, No Friction Rub Respiratory: No Rales, No Rhonchi, No Wheezing Gastrointestinal/Abdominal: Soft, No Tenderness, No Distention Extremity: Normal ROM (FROM of all digits, +active ROM of left elbow), Other (+ Tinels sign, good neurovascular status) Extremity: Bilateral: Normal Color And Temperature Pulses: Left Radial: Normal, Right Radial: Normal Neurological/Psych: Oriented x3 Gait: Steady ED Course And Treatment - Laboratory Results Result Diagrams: 01/12/19 19:52 01/12/19 20:47 O2 Sat by Pulse Oximetry: 97 (RA) Pulse Ox Interpretation: Normal Medical Decision Making Medical Decision Makin83 y/o female PMH of anxiety, HTN, abdominal aortic aneurysm s/p repair, and arterial embolus, presents to the ED with complaints of left arm pain since 9PM last night. Pain radiates from the left wrist to her fingertips as well as to her elbow. No rashes or skin changes. Initial Plan: - CMP - CBC - troponin I - chest x-ray - left elbow x-ray - left wrist x-ray - CT c-spine - Reassess 1054 Likely carpal tunnel to left wrist however given neck pain per pt and ?met to neck given on CT will likely place pt in obs for further evaluation. Pt also endorsed continuing pain. Pt is unable to take NSAIDs due to concurrent plavix usage. accepted by [facility] Disposition - Disposition Disposition: HOSPITALIZED Disposition Time: 10:54 Condition: STABLE - Clinical Impression Clinical Impression: Wrist pain, left, Neck pain - Scribe Statement The provider has reviewed the documentation as recorded by the Mary Oconnor Provider Attestation: All medical record entries made by the Scribe were at my direction and personally dictated by me. I have reviewed the chart and agree that the record accurately reflects my personal performance of the history, physical exam, medical decision making, and the department course for this patient. I have also personally directed, reviewed, and agree with the discharge instructions and disposition.
[2019-01-12 19:57] LABS: BASO # 0.1 K/uL (0.0-0.2); BASO % 1.2 % (0.0-2.0); EOS # 0.7 K/uL (0.0-0.7); EOS % 8.3 % (0.0-4.0); HEMOGLOBIN 9.9 g/dL (11.0-16.0); LYMPH # 1.4 K/uL (1.0-4.3); LYMPH % 18.1 % (20.0-40.0); MEAN CELL VOLUME 72.9 fL (81.0-99.0); MEAN CORPUSCULAR HEMOGLOBIN 23.2 pg (27.0-31.0); MEAN CORPUSCULAR HGB CONC 31.8 g/dL (33.0-37.0); MEAN PLATELET VOLUME 7.1 fL (7.2-11.7); MONO # 0.5 K/uL (0.0-0.8); MONO % 6.9 % (0.0-10.0); NEUT # 5.2 K/uL (1.8-7.0); NEUT % 65.5 % (50.0-75.0); RBC 4.28 Mil/uL (3.80-5.20); RED CELL DISTRIBUTION WIDTH 17.5 % (11.5-14.5); WHITE BLOOD COUNT 7.9 K/uL (4.8-10.8)
[2019-01-12 21:12] LABS: ALB/GLOB RATIO 1.1 (1.0-2.1); ALT/SGPT 12 U/L (9-52); AST/SGOT 20 U/L (14-36); BLOOD UREA NITROGEN 20 mg/dL (7-17); CALCIUM 9.5 mg/dl (8.6-10.4); GFR NON-AFRICAN AMERICAN 43
[2019-01-13 00:29] VITALS: RESP 20
[2019-01-13] MEDS: Levothyroxine 25 MCG TAB PO SCH (06:15)
--- NOTE | 2019-01-13 07:27 | CP.PCM.CON ---
History of Present Illness - History of Present Illness History of Present Illness: CONSULTATION DICTATED 3 WKS hX PROGRESSIVE CERVICAL RADICULAR PAIN LEFT C6 RADICULOPATHY WITH STENOSIS POSSIBLE LEFT MEDIAN ENTRAPMENT NEUROPATHY MRI CERVICAL SPINE GABAPENTIN ON TITRATION CARDIOLOGY CONSULT R/O CAD DISCUSSED WITH HER DAUGHTER AND HER Past Patient History - Past Medical History & Family History Past Medical History?: Yes - Past Social History Smoking Status: Never Smoked - CARDIAC Hx Hypertension: Yes - PULMONARY Hx Respiratory Disorders: No - NEUROLOGICAL Hx Neurological Disorder: No - HEENT Hx HEENT Problems: No - RENAL Hx Chronic Kidney Disease: No - ENDOCRINE/METABOLIC Hx Hypothyroidism: Yes - HEMATOLOGICAL/ONCOLOGICAL Hx Blood Disorders: No - INTEGUMENTARY Hx Dermatological Problems: No - MUSCULOSKELETAL/RHEUMATOLOGICAL Hx Arthritis: No - GASTROINTESTINAL Hx Gastritis: Yes - GENITOURINARY/GYNECOLOGICAL Hx Genitourinary Disorders: No - PSYCHIATRIC Hx Anxiety: Yes Hx Substance Use: No - SURGICAL HISTORY Hx Surgeries: Yes Hx Angiogram: Yes - ANESTHESIA Hx Anesthesia: Yes Hx Anesthesia Reactions: No Hx Malignant Hyperthermia: No Meds Allergies/Adverse Reactions: Allergies Allergy/AdvReac Type Severity Reaction Status Date / Time Penicillins Allergy COUGH Verified 01/12/19 18:41 cabbage Allergy Mild RASH Uncoded 01/12/19 18:41 carrots Allergy Mild RASH Uncoded 01/12/19 18:41 potato Allergy Mild RASH Uncoded 01/12/19 18:41 apple Allergy RASH Uncoded 01/12/19 18:41 seafood Allergy RASH Uncoded 01/12/19 18:41 - Medications Medications: Current Medications Acetaminophen (Tylenol 325mg Tab) 650 mg PO Q6 PRN PRN Reason: Pain, moderate (4-7) Last Admin: 01/13/19 01:45 Dose: 650 mg Amlodipine Besylate (Norvasc) 5 mg PO DAILY [facility] Aspirin (Aspirin Chewable) 81 mg PO DAILY [facility] Clopidogrel Bisulfate (Plavix) 75 mg PO DAILY [facility] Docusate Sodium (Colace) 100 mg PO BID [facility] Gabapentin (Neurontin) 300 mg PO BID [facility] Levothyroxine Sodium (Synthroid) 25 mcg PO DAILY@0630 [facility] Last Admin: 01/13/19 06:15 Dose: 25 mcg Lorazepam (Ativan) 0.5 mg PO Q12H PRN PRN Reason: Anxiety Pantoprazole Sodium (Protonix Ec Tab) 20 mg PO ACB [facility] Pneumococcal Polyvalent Vaccine (Pneumovax 23 Vaccine) 0.5 ml IM .ONCE ONE Stop: 01/15/19 10:01 Results - Vital Signs Recent Vital Signs: Last Vital Signs Temp 98.1 F 01/13/19 00:28 Pulse 79 01/13/19 00:28 Resp 20 01/13/19 00:28 BP 155/63 H 01/13/19 00:28 Pulse Ox 95 01/13/19 04:15 - Labs Result Diagrams: 01/12/19 19:52 01/12/19 20:47 Labs: Laboratory Results - last 24 hr 01/12/19 01/12/19 19:52 20:47 WBC 7.9 RBC 4.28 Hgb 9.9 L Hct 31.2 L MCV 72.9 L D MCH 23.2 L MCHC 31.8 L RDW 17.5 H Plt Count 342 D MPV 7.1 L Neut % (Auto) 65.5 Lymph % (Auto) 18.1 L [place] % (Auto) 6.9 Eos % (Auto) 8.3 H Baso % (Auto) 1.2 Neut # (Auto) 5.2 Lymph # (Auto) 1.4 [place] # (Auto) 0.5 Eos # (Auto) 0.7 Baso # (Auto) 0.1 Sodium 137 Potassium 3.4 L Chloride 100 Carbon Dioxide 29 Anion Gap 12 BUN 20 H Creatinine 1.2 Est GFR ( Amer) 52 Est GFR (Non-Af Amer) 43 Random Glucose 105 Calcium 9.5 Phosphorus 3.2 Magnesium 2.1 Total Bilirubin 0.4 AST 20 ALT 12 Alkaline Phosphatase 143 H D Troponin I < 0.0120 Total Protein 7.6 Albumin 4.0 Globulin 3.6 Albumin/Globulin Ratio 1.1
[2019-01-13] MEDS: Pantoprazole 20 mg EC Tab PO SCH (07:42)
[2019-01-13 12:14] LABS: FREE T4 1.52 ng/dL (0.78-2.19)
--- NOTE | 2019-01-13 12:43 | RAD ---
Date of service: 01/12/2019 HISTORY: Left arm pain COMPARISON: 01/01/2018. TECHNIQUE: Chest PA and lateral FINDINGS: LINES AND TUBES: None. LUNG AND PLEURA: The lungs are well inflated and clear. No pleural effusion or pneumothorax. HEART AND MEDIASTINUM: The heart is not enlarged. There is unfolding of the aorta. No aortic atherosclerotic calcifications present. The hilar and mediastinal contours are within normal limits. SKELETAL STRUCTURES: The bony structures are within normal limits for the patient's age. VISUALIZED UPPER ABDOMEN: Normal. OTHER FINDINGS: None. IMPRESSION: No active pulmonary disease.
--- NOTE | 2019-01-13 14:03 | RAD ---
Date of service: 01/12/2019 PROCEDURE: Radiographs of the left elbow. HISTORY: Left arm Pain. No history of recent/ related trauma provided. COMPARISON: No prior. TECHNIQUE: 3 views obtained. FINDINGS: BONES: Normal. No fracture. JOINTS: Normal. No osteoarthritis. SOFT TISSUES: Normal. JOINT EFFUSION: None. OTHER FINDINGS: None IMPRESSION: No significant or acute findings to account for/ related to the clinical presentation. Concordant results with the preliminary interpretation rendered by the emergency department physician procedure.
--- NOTE | 2019-01-13 14:04 | RAD ---
Date of service: 01/12/2019 PROCEDURE: Left Wrist Radiographs. HISTORY: L arm pain COMPARISON: None. FINDINGS: BONES: Cystic changes in the scaphoid and lunate. 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 SOFT TISSUES: Normal. OTHER FINDINGS: None. IMPRESSION: No acute findings related to/ accounting for the clinical presentation. Severe osteoarthritic changes described above.
--- NOTE | 2019-01-13 14:05 | CT ---
Date of service: 01/12/2019 PROCEDURE: CT Cervical Spine without contrast HISTORY: Neck pain COMPARISON: None available. TECHNIQUE: Axial computed tomography images were obtained of the cervical spine without the use of intravenous contrast. Coronal and sagittal reformatted images were created and reviewed. Radiation dose: Total exam DLP = 418.18 mGy-cm. This CT exam was performed using one or more of the following dose reduction techniques: Automated exposure control, adjustment of the mA and/or kV according to patient size, and/or use of iterative reconstruction technique. FINDINGS: VERTEBRAE: There are no acute compression fractures no retropulsed fragments. Vertebral bodies exhibit relatively normal stature.. Vertebral bodies exhibit somewhat multiple small lucencies-permeative changes of uncertain etiology. Rule out infiltrative marrow disease process Note made of expansile changes of the right C4 transverse foramen. Consider follow-up MRI of the cervical spine to further evaluate these changes and assess for infiltrative marrow disease process DISCS/SPINAL CANAL/NEURAL FORAMINA: Multilevel degenerative spondylosis of the cervical spine. At the C2-C3 level, there is adequate disc height. No disc herniation or significant disc bulge. The facets are mildly hypertrophic. Central canal and foramina. At the C3-C4 level, there is adequate disc height. Minimal broad-based bulge of the posterior annulus is present. The facet joints are mildly hypertrophic. Exit foramina are adequate on the left and mildly narrowed on the right. At the C4-C5 level there is mild disc space narrowing. Small osteophytic ridge contiguous with slightly overgrown uncovertebral joints. Facets also mildly hypertrophic. Central canal appears adequate. Exit foramina appear narrowed bilaterally. At the C5-C6 level, there is mild disc space narrowing. Small broad-based disc ridge complex contiguous with slightly overgrown uncovertebral joints. Facets also mildly hypertrophic. Central canal appears adequate. Exit foramina appear narrowed. Similar changes seen at the C6-C7 level. PARASPINAL SOFT TISSUES: Unremarkable. OTHER FINDINGS: None. IMPRESSION: No acute fractures. Vertebral bodies exhibit somewhat multiple small lucencies-permeative changes of uncertain etiology. Consider follow-up MRI for further evaluation to exclude the possibility of infiltrative marrow disease process. Multilevel degenerative spondylosis as detailed above. There is expansile changes of the right C4 transverse foramen. Consider follow-up MRI for further evaluation of these changes
--- NOTE | 2019-01-13 18:52 | CON ---
DATE: 01/13/2019 ATTENDING PHYSICIAN: Marc Jimenez MD. LOCATION: Room #360, bed A. REASON FOR CONSULTATION: Neck, arm pain. CHIEF COMPLAINT: The patient was brought into [facility] with a history of progressive arm and hand pain. From neurological point of view, I was called into evaluate her for further management. HISTORY OF PRESENT ILLNESS: Ms. Nargis Shelton is a 83-year-old moderately built, right-handed Setswana-speaking female, presenting with about 3 weeks' history of right-sided neck pain which was radiating to her right side of the cheek, been seen by her primary care physician and treated well. Following this, the pain radiating down to her left arm to the fingers. The pain is nagging in nature about 6-7/10 in the pain scale. Not associating with tingling and numbness. Because of the pain, she could not able to perform her usual activities on her left arm. This pain is not associating with shortness of breath or chest pain. No history of palpitation. No history of sweating associating with pain. Pain is not radiating to her head or chin. PAST MEDICAL HISTORY: Hypertension, hypothyroidism. ALLERGIES: PENICILLIN, CARROTS, POTATO, APPLE AND SEAFOOD. REVIEW OF SYSTEMS: A 12-point system being reviewed from neuro, new left arm pain. MEDICATIONS: Aspirin, lorazepam, Colace, Norvasc, Plavix, Protonix, levothyroxine and acetaminophen. PHYSICAL EXAMINATION: VITAL SIGNS: Blood pressure 155/63, mean artery pressure of 93, respiratory 18, pulse rate 79 regular, and temperature 98.1. NECK: Supple. No carotid bruits. HEART: Sounds regular. CHEST: Fair air entry. EXTREMITIES: No edema in legs. SPINE: Mild tenderness in the paraspinal muscle groups including left trapezius is tender to touch. Range of motion is limited due to the pain on the left side. NEUROLOGIC EXAMINATION Mental status examination, she is examined in the presence of her daughter. She is awake, alert and or to person, place and time. Speech is clear. Naming, repetition, fluency, comprehension all within normal. Cranial nerve examination, visual field intact. Pupils reactive. Extraocular movement normal, no nystagmus. No facial sensory deficit. No facial asymmetry. Hearing is normal. Tongue is midline. Good gag. Motor examination on outstretched hand with eyes closed, no drift noted. Power is symmetric on either side; however, the pain limited examination as stated before on left side is noted. Deep tendon reflexes, biceps, brachial radialis and triceps, both are 2+ on either side. Both knees are absent. Both ankles are absent. Plantars are downgoing. Sensory examination. No clear evidence of dermatomal sensory loss on pinprick examination. Coordination: Finger-nose test is intact on the right side, left side is a pain limited exam. Gait is deferred at this time. CONCLUSION: On reviewing her medical history from the report as well as history gathered from her daughter and herself, as per neurological examination, the patient does have possible cervical disc pathology which may be cervical stenosis associating with left C6 radiculopathy. 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 Considering her hypertensive cardiac disease, left arm pain ischemic process should be ruled out, possible cardiology consult also recommended. Workup x-ray of the cervical spine reviewed by me showed severe degenerative disease, particularly at C5-C6 region compared with other vertebra. Blood workup, WBC 7.9, hemoglobin 9.9, hematocrit 31.2, platelet 342. Sodium 137, potassium 3.4, chloride 100, bicarbonate 29, GFR 52, alkaline phosphatase 143. RECOMMENDATIONS: 1. MRI of the cervical spine to rule out herniated disc versus myelopathy. 2. Pain control with gabapentin for now. 3. Hydration. 4. Cardiology consult and cardiac workup is recommended if it is indicated. The patient's condition been discussed with her daughter. She will be followed closely while she is in the hospital. Wing Staley MD
[2019-01-13] MEDS ORDERED: Tramadol 25 mg PO PRN (19:28)
[2019-01-13] MEDS ORDERED: Lidocaine 5% Patch TD STA (20:33)
--- NOTE | 2019-01-13 21:36 | CP.PCM.HP ---
History of Present Illness - History of Present Illness History of Present Illness: CC: left hand pain PHI: 82-year-old female with a history of aortic aneurysm PVD hypertension hypothyroidism. pt now c/o increasing pain over the left hand and wrist. she also has some neck pain. tylenol relieve only little of the pain. radiology in the ER showing cervical marrow disease? or arthritis. there is also left wrist pain and left hand pain over the 1st MTP joint area. 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 Past medical history: Hypertension, hypothyroidism, reflux disease, aortic aneurysm. Surgical history Allergic to penicillin Home medications noted. On examination: Vital signs stable. Review of system noted from the chart. increasing left hand pain noted. Back pain noted. Vital signs reviewed No neck vein distention noted Chest good air entry bilaterally, no wheezing or rales noted CVS regular heart sound, no murmur noted Abdomen soft, nontender. Extremities no pedal edema [employer] alert awake oriented -3, no functional neurological deficit Labs reviewed radiology showing cervical spinal disease severe arthritic changes noted in the wrist. awaiting for MRI on the neck. seen by neuro. Assessment and recommendation: 82-year-old female with a history of aortic aneurysm, peripheral vascular disease, hypertension, hypothyroidism admitted left arm pain on antiplatlets severe arthritis wrist splint ordered will watch for worsening pain cardio if needed dvt gi prophylaxis Present on Admission - Present on Admission Any Indicators Present on Admission: No History of DVT/PE: No History of Uncontrolled Diabetes: No Urinary Catheter: No Decubitus Ulcer Present: No Past Patient History - Past Medical History & Family History Past Medical History?: Yes - Past Social History Smoking Status: Never Smoked - CARDIAC Hx Hypertension: Yes - PULMONARY Hx Respiratory Disorders: No - NEUROLOGICAL Hx Neurological Disorder: No - HEENT Hx HEENT Problems: No - RENAL Hx Chronic Kidney Disease: No - ENDOCRINE/METABOLIC Hx Hypothyroidism: Yes - HEMATOLOGICAL/ONCOLOGICAL Hx Blood Disorders: No - INTEGUMENTARY Hx Dermatological Problems: No - MUSCULOSKELETAL/RHEUMATOLOGICAL Hx Arthritis: No - GASTROINTESTINAL Hx Gastritis: Yes - GENITOURINARY/GYNECOLOGICAL Hx Genitourinary Disorders: No - PSYCHIATRIC Hx Anxiety: Yes Hx Substance Use: No - SURGICAL HISTORY Hx Surgeries: Yes Hx Angiogram: Yes - ANESTHESIA Hx Anesthesia: Yes Hx Anesthesia Reactions: No Hx Malignant Hyperthermia: No Meds Allergies/Adverse Reactions: Allergies Allergy/AdvReac Type Severity Reaction Status Date / Time Penicillins Allergy COUGH Verified 01/12/19 18:41 cabbage Allergy Mild RASH Uncoded 01/12/19 18:41 carrots Allergy Mild RASH Uncoded 01/12/19 18:41 potato Allergy Mild RASH Uncoded 01/12/19 18:41 apple Allergy RASH Uncoded 01/12/19 18:41 seafood Allergy RASH Uncoded 01/12/19 18:41 Results - Vital Signs Recent Vital Signs: Last Vital Signs Temp 98.5 F 01/13/19 16:00 Pulse 67 01/13/19 16:00 Resp 20 01/13/19 16:00 BP 145/66 01/13/19 16:00 Pulse Ox 98 01/13/19 16:00 - Labs Result Diagrams: 01/12/19 19:52 01/12/19 20:47 Labs: Laboratory Results - last 24 hr 01/13/19 01/13/19 01/13/19 11:16 11:16 11:16 ESR 58 H Hemoglobin A1c 5.9 Troponin I < 0.0120 C-Reactive Protein 24.70 H Free T4 TSH 3rd Generation 01/13/19 11:16 ESR Hemoglobin A1c Troponin I C-Reactive Protein Free T4 1.52 TSH 3rd Generation 3.95
[2019-01-13] MEDS: Oxycodone/Acetaminophen 5/325 mg Tab PO PRN (22:01)
--- NOTE | 2019-01-13 23:50 | CP.PCM.CON ---
History of Present Illness - History of Present Illness History of Present Illness: Patient seen and evaluated denies chest pain and dyspnea ECHO ordered to assess LV EF Past Patient History - Past Medical History & Family History Past Medical History?: Yes - Past Social History Smoking Status: Never Smoked - CARDIAC Hx Hypertension: Yes - PULMONARY Hx Respiratory Disorders: No - NEUROLOGICAL Hx Neurological Disorder: No - HEENT Hx HEENT Problems: No - RENAL Hx Chronic Kidney Disease: No - ENDOCRINE/METABOLIC Hx Hypothyroidism: Yes - HEMATOLOGICAL/ONCOLOGICAL Hx Blood Disorders: No - INTEGUMENTARY Hx Dermatological Problems: No - MUSCULOSKELETAL/RHEUMATOLOGICAL Hx Arthritis: No - GASTROINTESTINAL Hx Gastritis: Yes - GENITOURINARY/GYNECOLOGICAL Hx Genitourinary Disorders: No - PSYCHIATRIC Hx Anxiety: Yes Hx Substance Use: No - SURGICAL HISTORY Hx Surgeries: Yes Hx Angiogram: Yes - ANESTHESIA Hx Anesthesia: Yes Hx Anesthesia Reactions: No Hx Malignant Hyperthermia: No Meds Allergies/Adverse Reactions: Allergies Allergy/AdvReac Type Severity Reaction Status Date / Time Penicillins Allergy COUGH Verified 01/12/19 18:41 cabbage Allergy Mild RASH Uncoded 01/12/19 18:41 carrots Allergy Mild RASH Uncoded 01/12/19 18:41 potato Allergy Mild RASH Uncoded 01/12/19 18:41 apple Allergy RASH Uncoded 01/12/19 18:41 seafood Allergy RASH Uncoded 01/12/19 18:41 - Medications Medications: Current Medications Acetaminophen (Tylenol 325mg Tab) 650 mg PO Q6 PRN PRN Reason: Pain, Mild (1-3) Amlodipine Besylate (Norvasc) 5 mg PO DAILY [facility] Last Admin: 01/13/19 09:30 Dose: 5 mg Aspirin (Aspirin Chewable) 81 mg PO DAILY [facility] Last Admin: 01/13/19 09:30 Dose: 81 mg Clopidogrel Bisulfate (Plavix) 75 mg PO DAILY [facility] Last Admin: 01/13/19 09:30 Dose: 75 mg Docusate Sodium (Colace) 100 mg PO BID [facility] Last Admin: 01/13/19 17:38 Dose: 100 mg Gabapentin (Neurontin) 300 mg PO BID [facility] Last Admin: 01/13/19 17:38 Dose: 300 mg Heparin Sodium (Porcine) (Heparin) 5,000 units SC Q12 [facility] Last Admin: 01/13/19 21:06 Dose: 5,000 units Levothyroxine Sodium (Synthroid) 25 mcg PO DAILY@0630 [facility] Last Admin: 01/13/19 06:15 Dose: 25 mcg Lorazepam (Ativan) 0.5 mg PO Q12H PRN PRN Reason: Anxiety Oxycodone/Acetaminophen (Percocet 5/325 Mg Tab) 1 tab PO Q6 PRN PRN Reason: Pain, severe (8-10) Stop: 01/17/19 00:01 Last Admin: 01/13/19 22:01 Dose: 1 tab Pantoprazole Sodium (Protonix Ec Tab) 20 mg PO ACB [facility] Last Admin: 01/13/19 07:42 Dose: 20 mg Pneumococcal Polyvalent Vaccine (Pneumovax 23 Vaccine) 0.5 ml IM .ONCE ONE Stop: 01/15/19 10:01 Results - Vital Signs Recent Vital Signs: Last Vital Signs Temp 98.2 F 01/13/19 21:05 Pulse 79 01/13/19 21:05 Resp 20 01/13/19 21:05 BP 146/69 01/13/19 21:05 Pulse Ox 94 L 01/13/19 21:05 - Labs Result Diagrams: 01/12/19 19:52 01/12/19 20:47 Labs: Laboratory Results - last 24 hr 01/13/19 01/13/19 01/13/19 11:16 11:16 11:16 ESR 58 H Hemoglobin A1c 5.9 Troponin I < 0.0120 C-Reactive Protein 24.70 H Free T4 TSH 3rd Generation 01/13/19 11:16 ESR Hemoglobin A1c Troponin I C-Reactive Protein Free T4 1.52 TSH 3rd Generation 3.95
[2019-01-14] MEDS: Levothyroxine 25 MCG TAB PO SCH (05:50)
[2019-01-14] MEDS: Oxycodone/Acetaminophen 5/325 mg Tab PO PRN ×2 (05:52→15:32)
--- NOTE | 2019-01-14 07:57 | CP.PCM.CON ---
History of Present Illness - History of Present Illness History of Present Illness: Orthopedic Hand consult: Dr. Rowland Patient is a RHD female c/o L thumb/wrist pain. Grand-daughter is at bedside providing translation and history. The patient reports severe L hand pain which started 3 days ago without any instance of trauma. The patient has had a left thumb deformity since she was a child and had no issues until three days ago. She denies any recent upper respiratory infections or lesions. 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 Currently, her pain is located about the base of her thumb. The pain is sharp, intermittent and worse with gripping or lifting activities. The pain alleviates with inactivity. She was placed in a wrist splint which seems to help with her pain. She denies CP/SOB/N/V/D/fever/dysuria/melena. PMH: HTN, Abdominal aortic aneurysm, hypothyroid PSH: Abd aortic aneurysm repair/stent meds: as per med rec Allergy: PCN SH: Denies tobacco, ETOH, drug use Review of Systems - Review of Systems All systems: reviewed and no additional remarkable complaints except Review of Systems: as per HPI Past Patient History - Past Medical History & Family History Past Medical History?: Yes Past Family History: Reviewed and not pertinent - Past Social History Smoking Status: Never Smoked - CARDIAC Hx Hypertension: Yes - PULMONARY Hx Respiratory Disorders: No - NEUROLOGICAL Hx Neurological Disorder: No - HEENT Hx HEENT Problems: No - RENAL Hx Chronic Kidney Disease: No - ENDOCRINE/METABOLIC Hx Hypothyroidism: Yes - HEMATOLOGICAL/ONCOLOGICAL Hx Blood Disorders: No - INTEGUMENTARY Hx Dermatological Problems: No - MUSCULOSKELETAL/RHEUMATOLOGICAL Hx Arthritis: No - GASTROINTESTINAL Hx Gastritis: Yes - GENITOURINARY/GYNECOLOGICAL Hx Genitourinary Disorders: No - PSYCHIATRIC Hx Anxiety: Yes Hx Substance Use: No - SURGICAL HISTORY Hx Surgeries: Yes Hx Angiogram: Yes - ANESTHESIA Hx Anesthesia: Yes Hx Anesthesia Reactions: No Hx Malignant Hyperthermia: No Meds Allergies/Adverse Reactions: Allergies Allergy/AdvReac Type Severity Reaction Status Date / Time Penicillins Allergy COUGH Verified 01/12/19 18:41 cabbage Allergy Mild RASH Uncoded 01/12/19 18:41 carrots Allergy Mild RASH Uncoded 01/12/19 18:41 potato Allergy Mild RASH Uncoded 01/12/19 18:41 apple Allergy RASH Uncoded 01/12/19 18:41 seafood Allergy RASH Uncoded 01/12/19 18:41 - Medications Medications: Current Medications Acetaminophen (Tylenol 325mg Tab) 650 mg PO Q6 PRN PRN Reason: Pain, Mild (1-3) Amlodipine Besylate (Norvasc) 5 mg PO DAILY [facility] Last Admin: 01/13/19 09:30 Dose: 5 mg Aspirin (Aspirin Chewable) 81 mg PO DAILY [facility] Last Admin: 01/13/19 09:30 Dose: 81 mg Clopidogrel Bisulfate (Plavix) 75 mg PO DAILY [facility] Last Admin: 01/13/19 09:30 Dose: 75 mg Docusate Sodium (Colace) 100 mg PO BID [facility] Last Admin: 01/13/19 17:38 Dose: 100 mg Gabapentin (Neurontin) 300 mg PO BID [facility] Last Admin: 01/13/19 17:38 Dose: 300 mg Heparin Sodium (Porcine) (Heparin) 5,000 units SC Q12 [facility] Last Admin: 01/13/19 21:06 Dose: 5,000 units Levothyroxine Sodium (Synthroid) 25 mcg PO DAILY@0630 [facility] Last Admin: 01/14/19 05:50 Dose: 25 mcg Lorazepam (Ativan) 0.5 mg PO Q12H PRN PRN Reason: Anxiety Oxycodone/Acetaminophen (Percocet 5/325 Mg Tab) 1 tab PO Q6 PRN PRN Reason: Pain, severe (8-10) Stop: 01/17/19 00:01 Last Admin: 01/14/19 05:52 Dose: 1 tab Pantoprazole Sodium (Protonix Ec Tab) 20 mg PO ACB [facility] Last Admin: 01/13/19 07:42 Dose: 20 mg Pneumococcal Polyvalent Vaccine (Pneumovax 23 Vaccine) 0.5 ml IM .ONCE ONE Stop: 01/15/19 10:01 Physical Exam - Constitutional Appears: Well, No Acute Distress - Head Exam Head Exam: ATRAUMATIC, NORMOCEPHALIC - Eye Exam Eye Exam: EOMI, Normal appearance - ENT Exam ENT Exam: Mucous Membranes Moist - Respiratory Exam Respiratory Exam: NORMAL BREATHING PATTERN - Extremities Exam Additional comments: L hand: diffuse tenderness and guarding to 1st MCP joint, and radiocarpal joint no erthema, no swelling, no lesions hyperflexed 1st MCP, hyperextended 1st PIP sensation and motor intact MN/UN/RN radial pulse intact - Neurological Exam Neurological exam: Alert, Oriented x3 - Psychiatric Exam Psychiatric exam: Normal Affect, Normal Mood - Skin Skin Exam: Normal Color, Warm Results - Vital Signs Recent Vital Signs: Last Vital Signs Temp 99.1 F 01/14/19 00:00 Pulse 72 01/14/19 00:00 Resp 20 01/14/19 00:00 BP 132/63 01/14/19 00:00 Pulse Ox 94 L 01/14/19 00:00 - Labs Result Diagrams: 01/12/19 19:52 01/12/19 20:47 Labs: Laboratory Results - last 24 hr 01/13/19 01/13/19 01/13/19 11:16 11:16 11:16 ESR 58 H POC Glucose (mg/dL) Hemoglobin A1c 5.9 Troponin I < 0.0120 C-Reactive Protein 24.70 H Free T4 TSH 3rd Generation 01/13/19 01/14/19 01/14/19 11:16 01:11 07:26 ESR POC Glucose (mg/dL) 118 H 111 H Hemoglobin A1c Troponin I C-Reactive Protein Free T4 1.52 TSH 3rd Generation 3.95 - Impressions Impression: Accession No. : [id number] Patient Name / ID : EVONNE Plaza / [id number] Exam Date : 01/12/2019 19:48:42 ( Approved ) Study Comment : Sex / Age : F / 83Y Creator : Han Hay MD Dictator : Han Hay MD Theatre Professor : Film Splicer : Han Hay MD Approver2 : Report Date : 01/13/2019 13:20:52 My Comment : Date of service: 01/12/2019 PROCEDURE: Left Wrist Radiographs. HISTORY: L arm pain COMPARISON: None. FINDINGS: BONES: Cystic changes in the scaphoid and lunate. 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 SOFT TISSUES: Normal. OTHER FINDINGS: None. IMPRESSION: No acute findings related to/ accounting for the clinical presentation. Severe osteoarthritic changes described above. Assessment & Plan (1) Osteoarthritis of hand, left Assessment and Plan: Severe OA of L thumb CMC and PIP joint -No acute orthopedic intervention needed at this time -Recommend conservative management with wrist splint immobilization, ice, OT/PT and anti-inflammatories (oral steroid taper) as per medicine. NSAID's contraindicated due to plavix -may f/u in office with Dr. Rowland. Patient may require CMC joint steriod injection in office if conservative mgmt fails. -orthopedically stable for discharge -above d/w Dr. Rowland in agreement Status: Acute - Date & Time Date: 01/14/19 Time: 07:57
[2019-01-14] MEDS: Pantoprazole 20 mg EC Tab PO SCH (08:00)
--- NOTE | 2019-01-14 10:23 | PN ---
DATE: 01/14/2019 TIME OF EVALUATION: 07:10 a.m. 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 PHYSICAL EXAMINATION: VITAL SIGNS: Blood pressure 132/63, mean arterial pressure of 86, respiratory rate 18, temperature 99.1, pulse rate 72, regular. GENERAL: The patient is examined in the presence of her daughter. She is still complaining of the left arm and wrist pain associating with neck pain and discomfort. Rest of the examination is unchanged to compare with my previous exam. The patient's mentation is normal. LABORATORY DATA: Official CT of the cervical spine report was released which showed disk problem in the multilevel region C2 through C7 level and more pronounced herniated disk narrowing canal over C5-C6 and C4-C5 region. ASSESSMENT AND PLAN: The patient will be having MRI of the cervical spine today. The patient is tolerating gabapentin well. Will continue the medication as recommended. Following MRI of the cervical spine, if medically stable, the patient can be discharged and should have a followup visit with me as outpatient. Wing Staley MD
--- NOTE | 2019-01-14 13:36 | MRI ---
Date of service: 01/14/2019 PROCEDURE: MR CERVICAL SPINE WITHOUT CONTRAST HISTORY: HNP VS MYELOPATHY COMPARISON: CT cervical spine without contrast from 01/12/2019 TECHNIQUE: Multiecho multiplanar sequences were performed through the cervical spine without the use of intravenous contrast. FINDINGS: There is normal alignment of the cervical vertebral bodies. There is reversal of normal cervical lordosis with mild cervical kyphosis. There is no acute fracture. Bone marrow signal is within normal limits. No marrow infiltrative process. The craniocervical junction is normal. There is mild degenerative osteoarthrosis at the atlantoaxial joint. There is a hemangioma in the right posterior superior T3 vertebral body. Mild expansion of the right transverse foramina of the C4 vertebral body is related to a tortuous vertebral artery. The cervical cord is normal in contour, caliber and has normal intrinsic signal. The paraspinous soft tissues are normal. C2-C3: No disc herniation, spinal canal stenosis or neural foraminal narrowing. C3-C4: Disc osteophyte complex without central spinal canal stenosis. Asymmetric right uncovertebral joint hypertrophy in conjunction with moderate facet arthropathy result in severe right neural foraminal narrowing. C4-C5: Disc osteophyte complex without central spinal canal stenosis asymmetric uncovertebral joint hypertrophy in conjunction with mild facet arthropathy result in mild right neural foraminal narrowing. Also noted is moderate left facet arthropathy. C5-C6: Broad-based disc osteophyte complex without central spinal canal stenosis. Mild bilateral facet arthropathy contribute to mild right neural foraminal narrowing C6-C7: Broad-based disc osteophyte complex with superimposed central disc protrusion without central spinal canal stenosis. Mild left neural foraminal narrowing. C7-T1: Broad-based disc osteophyte complex without spinal canal stenosis or neural foraminal narrowing. OTHER FINDINGS: At T1-2 with inferior migration of extruded disc fragment which indents the ventral thecal sac with mild central spinal canal stenosis. IMPRESSION: 1. No acute fracture or traumatic anterior listhesis. No marrow infiltrative process. 2. Mild multilevel degenerative disc disease, worse at C6-7 with a broad-based disc osteophyte complex and superimposed central disc protrusion without spinal canal stenosis and with mild left neural foraminal narrowing. 3. Central disc extrusion at T1-2 with inferior migration of extruded disc fragment which indents the ventral thecal sac with mild central spinal canal stenosis. No neural foraminal narrowing.
[2019-01-14 15:50] VITALS: BP 156/72; PULSE 80; TEMP 98
[2019-01-14 20:20] VITALS: O2SAT 97
[2019-01-15] MEDS ORDERED: Pneumococcal 23-Valent Vaccine IM ONE (10:00)
--- NOTE | 2019-01-16 09:11 | CARD ---
APPROVED REPORT Date of service: 01/14/2019 EXAM: Two-dimensional and M-mode echocardiogram with Doppler and color Doppler. Other Information Quality : GoodRhythm : INDICATION Chest Pain RISK FACTORS Hypertension 2D DIMENSIONS IVSd0.6 (0.7-1.1cm)Aortic Root (2D)2.2 (2.0-3.7cm) LVDd4.3 (3.9-5.9cm)PWd0.9 (0.7-1.1cm) LA Iuzyrj53 (18-58mL)LVDs2.1 (2.5-4.0cm) FS (%) 52.0 %LVEF (%)83.4 (>50%) LVEF (Ku's)80.63 %IVC0.00 cm M-Mode DIMENSIONS Left Atrium (MM)4.52 (2.5-4.0cm)IVSd0.62 (0.7-1.1cm) Aortic Root2.64 (2.2-3.7cm)LVDd5.16 (4.0-5.6cm) Aortic Cusp Exc.2.18 (1.5-2.0cm)PWd0.65 (0.7-1.1cm) FS (%) 38 %LVDs3.19 (2.0-3.8cm) Mitral Valve MV E Rtcqmfmv46.1cm/sMV A Viaprfxt498.1cm/sE/A ratio0.8 TDI Lateral E' Peak V7.38cm/sMedial E' Peak V6.09cm/sE/Lateral E'11.3 E/Medial E'13.6 Tricuspid Valve TR Peak Libpdwjw979xn/sTR Peak Gr.[id number] <Conclusion> Left ventricle: thickness: normal; size: normal; overall ejection fraction: 65%: diastolic filling pressures: elevated. Mitral valve: annulus: normal: leaflets: normal: excursion: normal; no significant trans-mitral gradient: mildt incompetence: left atrium: normal Aortic valve: leaflets: normal: excursion: normal; no significant trans-aortic gradient: mild incompetence: aortic root: normal Right sided Structures: Pulmonary valve: normal; no significant incompetence; Tricuspid valve: normal; no significant incompetence: Intra-cardiac hemodynamics: pulmonary systolic pressures: 33 mmHg; central venous pressures: normal No pericardial effusion
== END 2019-01-14 20:15 | disposition home or self-care (01) ==
LOC: C.ER 18:33 → C.9E 22:53 → C.3T 23:07
PROVIDERS: ADMIT Internal Medicine; ATTEND Internal Medicine
DX: M54.12 Radiculopathy, cervical region (principal); Z88.0 Allergy status to penicillin; M18.12 Unilateral primary osteoarthritis of first carpometacarpal joint, left hand; I10 Essential (primary) hypertension; E03.9 Hypothyroidism, unspecified; I73.9 Peripheral vascular disease, unspecified; K21.9 Gastro-esophageal reflux disease without esophagitis
CPT/HCPCS: 36415; 71046; 72125; 72141; 73080; 73110; 80053; 82948; 83036; 83735; 84100; 84439; 84443; 84484; 85025; 85651; 86140; 93306; 96372; 97116; 97162; 99285; G0378; G8978; G8979; J1644